=== PATIENT | male | born 1950 | race Caucasian/White ===

== ENCOUNTER 2018-02-16 16:49 | Emergency (ER) | payer BC, MEDICARE ==
[2018-02-16] MEDS ORDERED: PROPARACAINE 0.5% OPHTH DROPS 15 ML BTL BOTH EYES STA (18:14)
[2018-02-16] MEDS ORDERED: PROPARACAINE 0.5% OPHTH DROPS 15 ML BTL ONE (18:15)
--- NOTE | 2018-02-16 18:28 | ED ---
General Adult HPI <Marco Ellis - Last Filed: 02/16/18 19:20> - General Source: patient, RN notes reviewed Mode of arrival: ambulatory Limitations: no limitations <Gage Pruett - Last Filed: 02/16/18 19:54> - General Chief complaint: Eye Problems Stated complaint: lt eye vision loss Time Seen by Provider: 02/16/18 17:58 - History of Present Illness Initial comments: 67-year-old male presents to the emergency department for a chief complaint of vision loss in the left eye. Patient states vision loss is all medial in the left eye. Patient states this started approximately 10 hours ago. Patient denies pain. He states he woke up and noticed his vision was decreased in the left eye. Patient states he has had "flashers" in his eyes for the past 2 years and has seen an eye doctor for this which left eye doctor stated was small tears in the retina. Patient denies a history of carotid artery disease or atrial fibrillation. Patient denies history of stroke. Patient has no other complaints at this time including shortness of breath, chest pain, abdominal pain, nausea or vomiting, headache, or visual changes. (Gage Pruett) - Related Data Home Medications Medication Instructions Recorded Confirmed Aspirin 81 mg PO DAILY 12/03/13 12/03/13 Loratadine [Claritin] 10 mg PO DAILY 12/03/13 12/06/13 Allergies Allergy/AdvReac Type Severity Reaction Status Date / Time No Known Allergies Allergy Verified 02/16/18 17:03 Review of Systems ROS Other: All systems not noted in ROS Statement are negative. <Marco Ellis - Last Filed: 02/16/18 19:20> ROS Other: All systems not noted in ROS Statement are negative. <Gage Pruett - Last Filed: 02/16/18 19:54> ROS Statement: Those systems with pertinent positive or pertinent negative responses have been documented in the HPI. Past Medical History Past Medical History: COPD Additional Past Medical History / Comment(s): RECENT BOUT OF BRONCHITIS History of Any Multi-Drug Resistant Organisms: None Reported Past Surgical History: Hernia Repair Past Anesthesia/Blood Transfusion Reactions: No Reported Reaction Past Psychological History: No Psychological Hx Reported Smoking Status: Never smoker Past Alcohol Use History: None Reported Past Drug Use History: None Reported <Gage Pruett - Last Filed: 02/16/18 19:54> General Exam Limitations: no limitations General appearance: alert, in no apparent distress Head exam: Present: atraumatic, normocephalic, normal inspection Eye exam: Present: normal appearance, PERRL, EOMI. Absent: scleral icterus, conjunctival injection, periorbital swelling Expanded Eyelids: Normal Inspection: Bilateral Pupils: Regular, Round: Bilateral, Reactive: Bilateral Sclera/Conjunctival: Normal Inspection: Bilateral (L eye stained with fluorosceine, no abrasions, negative shante) Anterior chamber: Normal Inspection: Bilateral Visual acuity (R) = 20/: 30 Visual acuity (L) = 20/: 200 (less than 20/200) IOP (R) in mmH IOP (L) in mmH IOP measured with: Tonopen ENT exam: Present: normal exam, mucous membranes moist Neck exam: Present: normal inspection, full ROM, other (negative bruits). Absent: tenderness, meningismus, lymphadenopathy Respiratory exam: Present: normal lung sounds bilaterally. Absent: respiratory distress, wheezes, rales, rhonchi, stridor Cardiovascular Exam: Present: regular rate, normal rhythm, normal heart sounds. Absent: systolic murmur, diastolic murmur, rubs, gallop, clicks Neurological exam: Present: alert, oriented X3, CN II-XII intact, normal gait, other (GCS 15). Absent: motor sensory deficit Psychiatric exam: Present: normal affect, normal mood <Gage Pruett P - Last Filed: 02/16/18 19:54> Vital Signs 02/16/18 17:01 Temperature 99.1 F Pulse Rate 74 Respiratory 18 Rate Blood Pressure 182/99 O2 Sat by Pulse 98 Oximetry Medical Decision Making <Marco Ellis - Last Filed: 02/16/18 19:20> <Gage Pruett - Last Filed: 02/16/18 19:54> - Medical Decision Making Medical decision making; this is a 67-year-old male here with his . The patient reports that when he awakened this morning around 8 AM he difficulty seeing out of his left eye. On examination the patient has lost his medial field of vision from the left eye. Visual acuity in the left eye is 20/200. Pressure of the eyes 14. The patient's not complaining of any pain or headache. His vital signs show blood pressure 182/99. For which she'll receive lisinopril. The patient had CAT scan of the brain which is negative for any acute pathology. A 6 CRP and ESR still pending. Heart no murmur, no carotid bruit appreciated. Patient otherwise alert and oriented without any difficulties. Patient denies any previous significant eye problems no floaters no previous detached retina. I discussed the case with on- call electrical troubleshooter Dr. Case. He will see the patient in the morning in office before office hours. The patient will be advised to stay nothing by mouth after midnight in case he needs to be referred for surgery. Dr. Ellis ( Marco Ellis) 67-year-old male with medial vision loss in the left eye 10 hours. Visual acuity less than 20/200 in the left eye, 20/30 in the right eye. Ocular pressure 10 left eye, right eye 14. Negative Shante sign or corneal abrasion with staining. Negative computed tomography scan of the brain no sign of intracranial hemorrhage or mass effect. Dr Ellis did discuss with Dr Holm. He will see him at 9 am. Patient aware not to ear or drink after midnight. (Gage Pruett) Disposition <Marco Ellis - Last Filed: 02/16/18 19:20> Is patient prescribed a controlled substance at d/c from ED?: No Time of Disposition: 19:53 <Gage Pruett - Last Filed: 02/16/18 19:54> Clinical Impression: Hemianopia of left eye Disposition: HOME SELF-CARE Condition: Good Additional Instructions: Please follow up with Dr. Holm tomorrow in office #[id number] at [facility] at 9 AM. Please go up the stairs and wait there. Do not eat or drink anything after midnight. Return to the emergency department if you have any worsening symptoms. Referrals: Luis Carlos Jerome MD [Primary Care Provider] - 1-2 days Duong Holm MD [STAFF PHYSICIAN] - 1-2 days
--- NOTE | 2018-02-16 18:49 | CT ---
EXAMINATION TYPE: CT brain wo con DATE OF EXAM: 02/16/2018 COMPARISON: None HISTORY: Left eye vision loss CT DLP: 1050.6 mGycm Automated exposure control for dose reduction was used. FINDINGS: There is mild cerebral cortical atrophy. There is no mass effect nor midline shift. There is no sign of intracranial hemorrhage. The calvarium is intact. IMPRESSION: NEGATIVE CT SCAN OF THE BRAIN.
[2018-02-16 20:03] VITALS: BP 172/88; PULSE 68; RESP 16; TEMP 98.7
== END 2018-02-16 20:00 | disposition home or self-care (01) ==
LOC: EC 16:49
DX: H53.47 Heteronymous bilateral field defects (principal); Z79.82 Long term (current) use of aspirin; Z79.899 Other long term (current) drug therapy
CPT/HCPCS: 36415; 70450; 85652; 86140; 99284

== ENCOUNTER → 2019-12-30 | Outpatient (CLI) | payer MEDICARE ==
[2019-12-30 15:26] LABS: HCT 43.2 % (39.0-53.0); HGB 14.9 gm/dL (13.0-17.5); MCH 32.6 pg (25.0-35.0); MCHC 34.5 g/dL (31.0-37.0); MCV 94.4 fL (80.0-100.0); Mean Platelet Volume 7.4; Platelet Count 241 k/uL (150-450); RBC 4.58 m/uL (4.30-5.90); RDW 12.6 % (11.5-15.5)
[2019-12-30 15:35] LABS: Appearance,Urine Clear (Clear); Bilirubin,Urine Negative (Negative); Blood,Urine Trace (Negative); Color,Urine Yellow; Glucose,Urine (UA) Negative (Negative); Ketones,Urine Negative (Negative); Leukocyte Esterase,Urine Negative (Negative); Mucus,Urine Rare /hpf; Nitrite,Urine Negative (Negative); Protein,Urine Negative (Negative); RBC,Urine 9 /hpf (0-5); Specific Gravity,Urine 1.012 (1.001-1.035); Urobilinogen,Urine <2.0 mg/dL (<2.0); WBC,Urine 1 /hpf (0-5)
[2019-12-30 15:39] LABS: Partial Thromboplastin Time 24.5 sec (22.0-30.0); Prothrombin Time 10.2 sec (9.0-12.0)
[2019-12-30 15:41] LABS: ALT 42 U/L (4-49); AST 43 U/L (17-59); African American GFR (CKD) >90 (>60 ml/min/1.73 sqM); Albumin 4.3 g/dL (3.5-5.0); Alkaline Phosphatase 72 U/L (38-126); Anion Gap 10 mmol/L; Blood Urea Nitrogen 10 mg/dL (9-20); Calcium 9.2 mg/dL (8.4-10.2); Carbon Dioxide 26 mmol/L (22-30); Chloride 93 mmol/L (98-107); Glucose 106 mg/dL (74-99); Non-African American GFR(CKD) >90 (>60 ml/min/1.73 sqM); Potassium 4.7 mmol/L (3.5-5.1); Sodium 129 mmol/L (137-145); Total Bilirubin 0.9 mg/dL (0.2-1.3)
== END | disposition home or self-care (01) ==
LOC: LABPAT 14:27
PROVIDERS: ATTEND Orthopaedic Surgery
DX: Z01.818 Encounter for other preprocedural examination (principal); Z01.812 Encounter for preprocedural laboratory examination; Z79.01 Long term (current) use of anticoagulants
CPT/HCPCS: 36415; 80053; 81001; 85027; 85610; 85730; 87070; 93005

== ENCOUNTER 2020-01-14 07:45 | Day surgery (SDC) | payer MEDICARE ==
[2020-01-01 13:56] VITALS: BMI 26.5
[~2020-01-14 07:45] MED LIST: ACETAMINOPHEN TAB 500 MG TAB PO ONE; DEXAMETHASONE SOD PHOSPHATE 10 MG/ML 1 ML VIAL IV ONE; GABAPENTIN 300 MG CAP PO ONE; HYDROmorphone 0.5 MG/0.5 ML SYRINGE IVP PRN; MELOXICAM 7.5 MG TAB PO ONE; MIDAZOLAM 2 MG/2 ML VIAL IV PRN; ONDANSETRON 4 MG/2 ML VIAL IVP ONE; TRANEXAMIC ACID 1,000 MG in SODIUM CHLORIDE 0.9% 100 ML IVPB ONE
[2020-01-14] MEDS ORDERED: ACETAMINOPHEN TAB 500 MG TAB ONE (08:02)
[2020-01-14] MEDS ORDERED: ONDANSETRON 4 MG/2 ML VIAL ONE (08:03)
[2020-01-14] MEDS: LACTATED RINGERS 1,000 ML IV SCH (08:35)
[2020-01-14] MEDS ORDERED: MIDAZOLAM 2 MG/2 ML VIAL IVP ONE (08:39)
--- NOTE | 2020-01-14 09:03 | P.ANPRN ---
Procedure Note - Anesthesia - Nerve Block Performed Right Adductor Canal Infusion Time Out Performed: Yes Date of Procedure: 01/14/20 Procedure Start Time: 07:40 Procedure Stop Time: 07:50 Location of Patient: PreOp Indication: Acute Post-Operative Pain, Requested by Surgeon Specifically requested for management of pain by : Eitan Max Sedation Type: Sedate with meaningful contact maintained Preparation: Sterile Prep, Sterile Dressing Position: Supine Catheter: Indwelling Needle Types: Pajunk Needle Gauge: 18 Ultrasound used to visualize needle placement: Yes Ultrasound used to observe medication spread: Yes Injectate: 0.5% Ropivacaine (see comment for volume) (20 ml) Blood Aspirated: No Pain Paresthesia on Injection Noted: No Resistance on Injection: Normal Image Stored and Saved: Yes Events: Uneventful and Well Tolerated
[2020-01-14] MEDS ORDERED: GLYCOPYRROLATE 0.2 MG/ML 2 ML VIAL ONE (09:16)
[2020-01-14] MEDS ORDERED: SODIUM CHLORIDE 0.9% 100 ML BAG ONE (09:16)
[2020-01-14] MEDS ORDERED: TRANEXAMIC ACID 1,000 MG/10 ML VIAL ONE (09:16)
[2020-01-14] MEDS ORDERED: MIDAZOLAM 2 MG/2 ML VIAL ONE (09:16)
[2020-01-14] MEDS ORDERED: PROPOFOL 10 MG/ML 20 ML VIAL IV ONE (09:16)
[2020-01-14] MEDS ORDERED: ceFAZolin 3,000 MG in SODIUM CHLORIDE 0.9% IRRIGATIO 3,000 ML IRRIGATION ONE (09:19)
[2020-01-14] MEDS ORDERED: hydrOXYzine PAMOATE 25 MG CAP PO PRN (09:25)
[2020-01-14] MEDS ORDERED: BISACODYL 10 MG SUPP RECTAL PRN (09:25)
[2020-01-14] MEDS ORDERED: NA PHOS,M-B/NA PHOS,DI-BA 133 ML ENEMA RECTAL PRN (09:25)
[2020-01-14] MEDS ORDERED: HYDROcodone/APAP 5-325MG 1 EACH TAB PO PRN (09:25)
[2020-01-14] MEDS ORDERED: HYDROmorphone 0.5 MG/0.5 ML SYRINGE IVP PRN ×3 (09:25)
[2020-01-14] MEDS ORDERED: ONDANSETRON 4 MG/2 ML VIAL IVP PRN (09:25)
[2020-01-14] MEDS ORDERED: DIAZEPAM 5 MG TAB PO PRN (09:25)
[2020-01-14] MEDS ORDERED: NALOXONE 0.4 MG/ML 1 ML VIAL IV PRN (09:25)
[2020-01-14] MEDS: ROPIVACAINE 246.25 MG, EPINEPHrine 0.5 MG, KETOROLAC 30 MG, cloNIDine HCL/PF 80 MCG, WA... MISCELLANE ONE ×10 (09:47→10:25)
[2020-01-14] MEDS ORDERED: LACTATED RINGERS 1,000 ML IV ONE (10:06)
--- NOTE | 2020-01-14 10:56 | P.OP ---
Date of Procedure: 01/14/20 Preoperative Diagnosis: Severe osteoarthritis right knee Postoperative Diagnosis: Severe osteoarthritis right knee Procedure(s) Performed: Right total knee arthroplasty Implants: Hogan [employer] Nephew Journey II CR Oxinium cruciate retaining femoral component size 8, right Hogan [employer] Nephew Journey right nonporous tibial baseplate size 8 Hogan [employer] Nephew Journey II, XLPE Deep Dished articular insert, size 9 mm, Size 7- 8 right Hogan [employer]hew Journey BCS resurfacing oval patellar component, 35 mm All components were cemented using Palacos R bone cement.. The articulation is Oxinium on polyethylene. Anesthesia: spinal Surgeon: Eitan Max Painting Manager #1: Ping Templeton Estimated Blood Loss (ml): 50 Pathology: other (Bone and cartilage) Condition: stable Disposition: PACU Indications for Procedure: After failure of conservative treatment we discussed the surgical and nonsurgical treatment options at length. Patient wishes to proceed with a total knee arthroplasty. Complications specific to this procedure were discussed at length, including but not limited to infection, bleeding, stiffness, and nerve injury. Covid-19 was also discussed at length with the patient, and they are aware of the current policies and procedures. The patient was given the option of delaying surgery, but they elect to proceed knowing these risks. Patient is aware of all these complications and informed consent was obtained Operative Findings: The operative findings are consistent with severe osteoarthritis of the right knee Description of Procedure: Patient was seen in the preoperative area consent was reviewed and operative site was marked with a skin marker. An adductor canal pain catheter was placed by anesthesia in the preoperative area. Patient was then brought to the operating room and given preoperative antibiotics intravenously. A spinal anesthetic was administered by the anesthesia department. A tourniquet was placed on the upper thigh and the lower extremity was prepped and draped in usual sterile fashion. A gram of transexamic acid was given. A universal timeout was then performed which confirmed the patient's name, surgical site, ALLERGIES, and consent. The lower extremity was then exsanguinated and tourniquet was inflated to 250 mmHg. A standard and anterior midline approach to the knee was performed. The skin and subcutaneous tissue was dissected down to the patellar tendon. A medial parapatellar arthrotomy was then performed. The knee was then extended, the patellar was everted, and the knee was again flexed. The patellar fat pad was removed in order to enhance exposure. Anterior horns of both menisci were excised, and a release was performed to the posterior medial aspect of the knee. On gross visual inspection, there was complete loss of articular cartilage in the medial and patellofemoral joint spaces. There was also significant cartilage damage in the lateral compartment. There were multiple periarticular osteophytes which were then removed with a Ronguer. The femoral canal was then opened with the 9.5 mm intramedullary drill. The 8 mm intramedullary james was then inserted into the femoral canal. The distal femoral cutting guide was then placed and set for 5 of valgus. The distal femoral cutting block was then pinned in place. The intramedullary james was then removed, and the distal femur was then cut. The cutting block was then removed and the cut was checked for symmetry. Next, the sizing guide was then placed and set for 3 external rotation based off of the epicondylar axis and Whitesides line. Pins were then placed and the drill holes, and the femur was sized with the sizing stylus. The pins were then removed, and the sizing guide was then removed. The spikes of the femoral block was then placed into the predrilled holes, and malleted into place. Two 45 mm pins were then placed into the fixation holes on the cutting block. An gerardo wing was then used to ensure there would be no notching with the anterior cut. The anterior condyles were cut without notching. The anterior cord cut was then performed, followed by the posterior cut, posterior chamfer cut, and the anterior chamfer cut. The collateral ligaments were protected during the entire process. The cutting block was then removed, and the femoral canal was plugged with autologous bone. Attention was then directed to the tibia. The remaining ACL was removed with a Ronguer, and the tibia was then gently subluxed forward with a large bent knee retractor. Any remaining menisci was excised. The posterior lateral corner was cauterized in order to cauterize the lateral geniculate artery. The extra medullary tibial cutting guide was then placed, set for the appropriate rotation, slope, and depth of resection. The proximal tibia cutting guide was then pinned in place. Proximal tibia was then cut and sized. Next trials were then placed with the appropriate-sized insert. The knee was able to fully extend and flex to 130 and was stable throughout all range of motion. The knee was then extended, patella everted. Patella was then measured, and then using an osteotomy guide, the patella was cut at the appropriate level. The patella was then measured and drilled and the patella trial was then placed. The knee was then taken through range of motion with the patella trial and the patella tracked normally. The knee was then extended patella trial was then removed and the patella was everted. Knee was then flexed and lug holes were drilled through the femoral trial and the femoral trial was then removed. The tibial was then exposed, and the tibial broach guide was then pinned in place after it was set for the appropriate rotation to allow for the most coverage without overhang. The tibia was then reamed and broached. The cut surfaces of bone were then irrigated with pulsatile lavage. The posterior structures were injected with the ropivacaine solution. The knee was also irrigated with Irrisept solution. The components were then opened, the cement was mixed, and the components were then cemented in place. The cement was allowed to harden with the knee in full extension. While the cement was hardening, the remaining soft tissues were then injected with a ropivacaine solution, which consisted of 246.25 mg of ropivacaine, 0.5 mg of epinephrine, 30 mg of Toradol, 80 g of clonidine, and 48.45 mL of sterile water, for a total of 100 mL of fluid injected. After the cemented hardened. The tourniquet was released, and hemostasis was obtained. A second gram of transexamic acid was given. The knee was again irrigated. The knee was again taken through range of motion and found to be stable throughout all range of motion of 0-130, and the patella tracked normally. The fascia was then closed with #2 strata fix suture. The subcutaneous tissue was closed with 3-0 Vicryl and 3-0 strata fix. Dermabond glue was used for the skin and placed with the knee in flexion. The patient was placed in a sterile silver dressing. Patient was then transferred to recovery room in stable condition. The producer assistant ANGELINE Nettles was required due the complexity surgery and the need for a skilled surgical physician assistant. She assisted in positioning, draping, retraction, and closure of the wound.
[2020-01-14] MEDS ORDERED: ROPIVACAINE 0.2%-NS ON-Q PUMP 1,090 MG, EMPTY PAIN BALL 1 EACH MISCELLANE PRN (11:15)
--- NOTE | 2020-01-14 12:01 | XR ---
EXAMINATION TYPE: XR knee limited RT DATE OF EXAM: 01/14/2020 COMPARISON: NONE HISTORY: 69-year-old male evaluation for postoperative abnormality and alignment TECHNIQUE: 2 views FINDINGS: Images show placement of right total knee arthroplasty. Both distal femoral and proximal ti bial components. Prosthesis appear well seated without periprosthetic fracture. Alignment grossly jannette tomic. Anterior soft tissue swelling with scattered soft tissue air as well as intra-articular air an d joint fluid compatible with recent operation. IMPRESSION: Uncomplicated postoperative appearance right total knee arthroplasty.
[2020-01-14] MEDS: SODIUM CHLORIDE 0.9% 1,000 ML IV SCH (17:03)
[2020-01-14] MEDS: ASPIRIN 325 MG TAB PO SCH (20:46)
[2020-01-14] MEDS ORDERED: SENNOSIDES-DOCUSATE SODIUM 1 EACH TAB PO SCH (21:00)
[2020-01-14] MEDS ORDERED: LORATADINE 10 MG TAB PO PRN (21:22)
--- NOTE | 2020-01-14 21:23 | P.CONS ---
History of Present Illness - Reason for Consult Consult date: 01/14/20 Medical management Requesting physician: Eitan Max - Chief Complaint Right knee pain - History of Present Illness Consultation: This is a pleasant 69-year-old patient of Dr. Jerome. Patient been having progressive pain in the right knee. Conservative management failed. Had been taking pain medication. Pain was worse with activity and better with rest. Pain is localized to his right knee. The pain was sharp in nature. Patient today underwent right total knee arthroplasty. Postprocedure comfortable. No nausea vomiting. Has been out of bed. Did tolerate a light supper. Review of systems: GEN.: None EYES: None HEENT: None NECK: None RESPIRATORY: None CARDIOVASCULAR: None GASTROINTESTINAL: None GENITOURINARY: None MUSCULOSKELETAL: [Pain in any joints LYMPHATICS: None HEMATOLOGICAL: None PSYCHIATRY: None NEUROLOGICAL: None Past medical history to include: Essential hypertension, , osteoarthritis Social history: Does not smoke or drink Court. . Retired from [employer]. Physical examination: VITAL SIGNS: 97.8, 76, 18, 125/76, 95% room air GENERAL: BMI 26.6, sitting on bed, comfortable. EYES: Pupils equal. Conjunctiva normal. HEENT: External appearance of nose and ears normal, oral cavity grossly normal. NECK: JVD not raised; masses not palpable. HEART: First and second heart sounds are normal; no edema. LUNGS: Respiratory rate normal; clear to auscultation. ABDOMEN: Soft, nontender, liver spleen not palpable, no masses palpable. PSYCH: Alert and oriented x3; mood and affect normal MUSCULOSKELETAL: Dressing over the right knee. NEUROLOGICAL: Cranial nerves grossly intact; no facial asymmetry, power and sensation grossly intact. LYMPHATICS: No lymph nodes palpable in the axilla and neck INVESTIGATIONS, reviewed in the clinical context: From 12/30/2019 White count 16 hemoglobin 14.9 potassium 4.7 creatinine 0.53 Assessment: -Right total knee arthroplasty -Primary osteoarthritis -Recent leukocytosis likely reactive no evidence of infection -Essential hypertension Plan: Patient does feel for DVT prophylaxis. Postprocedure doing well. Home medications to be resumed. Care was discussed with the patient. Questions were answered. Thank you Dr. Max Past Medical History Past Medical History: Hypertension Additional Past Medical History / Comment(s): RECENT BOUT OF BRONCHITIS History of Any Multi-Drug Resistant Organisms: None Reported Past Surgical History: Hernia Repair Additional Past Surgical History / Comment(s): LEFT CATARACT SURGERY WITH IMPLANTS, HERNIA X2, total right knee Past Anesthesia/Blood Transfusion Reactions: No Reported Reaction Past Psychological History: No Psychological Hx Reported Smoking Status: Never smoker Past Alcohol Use History: None Reported Past Drug Use History: None Reported - Past Family History Mother Family Medical History: No Reported History Father Family Medical History: Cancer Additional Family Medical History / Comment(s): LUNG AND COLON CANCER Medications and Allergies Home Medications Medication Instructions Recorded Confirmed Type Loratadine [Claritin] 10 mg PO DAILY PRN 12/03/13 01/01/20 History Lisinopril [Zestril] 5 mg PO DAILY 01/01/20 01/01/20 History Allergies Allergy/AdvReac Type Severity Reaction Status Date / Time No Known Allergies Allergy Verified 01/01/20 12:07 Physical Exam Vitals: Vital Signs Temp Pulse Resp BP Pulse Ox 01/14/20 19:49 76 18 01/14/20 19:13 97.8 F 76 18 125/76 95 01/14/20 17:06 16 01/14/20 15:15 77 16 101/68 96 01/14/20 14:00 16 99/67 96 01/14/20 13:30 60 18 114/65 99 01/14/20 13:12 59 L 17 127/75 95 01/14/20 12:58 60 17 116/75 97 01/14/20 12:44 63 17 109/71 97 01/14/20 12:30 61 18 103/64 96 01/14/20 12:00 59 L 18 96/64 95 01/14/20 11:45 58 L 187 H 110/74 93 L 01/14/20 11:30 70 18 105/70 96 01/14/20 11:15 81 18 105/70 94 L 01/14/20 11:13 97.1 F L 71 14 99/61 95 01/14/20 08:48 66 18 133/88 98 Intake and Output 01/14/20 01/14/20 01/14/20 06:59 14:59 22:59 Intake Total 1351 Output Total 50 200 Balance 1301 -200 Intake: IV 1351 Output: Urine 200 Estimated Blood Loss 50 Other: Voiding Method Toilet Urinal # Voids 1 Weight 84.1 kg 84.1 kg
[2020-01-15] MEDS: SODIUM CHLORIDE 0.9% 1,000 ML IV SCH (00:29)
[2020-01-15 01:33] VITALS: PULSE 74
[2020-01-15] MEDS: HYDROcodone/APAP 5-325MG 1 EACH TAB PO PRN ×2 (05:05→11:48)
[2020-01-15] MEDS: LACTATED RINGERS 1,000 ML IV SCH (05:07)
[2020-01-15 06:53] VITALS: BP 125/77; RESP 16; TEMP 98.4
[2020-01-15] MEDS: ASPIRIN 325 MG TAB PO SCH (06:54)
--- NOTE | 2020-01-15 07:17 | P.PN ---
Progress Note - Text Progress Note Date: 01/15/20 Patient was seen and evaluated and bedside. Postoperative day one status post total knee arthroplasty . Patient is rating his pain level 3-4 out of 10 at rest. Patient rating his pain levels 5-6with activity. Patient denied any side effects with catheter medications. Able to participate active physical therapy without any problem. Physical exam: Vitals stable, afebrile. Catheter intact with dressing. No redness/swelling. No leaking fluid around the catheter. No tenderness on palpation over the catheter placement area. Plan: Continue current catheter flow rate.
[2020-01-15 08:44] LABS: HCT 34.5 % (39.0-53.0); MCH 32.7 pg (25.0-35.0); MCHC 34.8 g/dL (31.0-37.0); MCV 93.9 fL (80.0-100.0); Mean Platelet Volume 7.6; Platelet Count 196 k/uL (150-450); RBC 3.67 m/uL (4.30-5.90); RDW 12.9 % (11.5-15.5); WBC 22.5 k/uL (3.8-10.6)
--- NOTE | 2020-01-15 08:44 | P.DS ---
Providers Expected date of discharge: 01/15/20 Attending physician: Eitan Max Consults: 01/14/20 09:25 Consult Physician Routine Consulting Provider: Harish Dasilva Consult Reason/Comments: \ Do you want consulting provider notified?: Yes Primary care physician: Luis Carlos Jerome - Discharge Diagnosis(es) (1) Osteoarthritis of right knee Current Visit: Yes Status: Acute (2) Status post total right knee replacement Current Visit: Yes Status: Acute Hospital Course: This is a 69-year-old male with known history of degenerative arthritis of the right knee. The patient presents for evaluation. After discussion and consideration patient elects to proceed with total knee arthroplasty. The patient is seen preoperatively by Dr. Max and medically cleared for surgery by their primary care physician. Patient is admitted to [facility] on 01/14/2020 for total knee arthroplasty. The procedures performed without complication or sequelae. The patient is doing well postoperatively. Labs and vital signs are stable on day of discharge. On day of discharge patient's knee incision is healing well. There is minimal erythema. There is no drainage noted at this time. There is minimal soft tissue swelling to the knee. Patient has full foot and ankle motion without difficulty or pain. Calf is soft and nontender to palpation. Neurovascular status to the right lower extremity is intact. Patient is discharged home in good condition. Opioid start talking form is reviewed and signed at patient bedside. Please see med rec for accurate list of home medications. Plan - Discharge Summary Discharge Rx Participant: Yes New Discharge Prescriptions: New Aspirin 325 mg PO BID #60 tab HYDROcodone/APAP 5-325MG [[place] 5-325] 1 - 2 tab PO Q6HR PRN #48 tab PRN Reason: Pain Sennosides [Senokot] 2 tab PO DAILY PRN #60 tablet PRN Reason: Constipation No Action Loratadine [Claritin] 10 mg PO DAILY PRN PRN Reason: Allergy Symptoms Lisinopril [Zestril] 5 mg PO DAILY Discharge Medication List Loratadine [Claritin] 10 mg PO DAILY PRN 12/03/13 [History] Lisinopril [Zestril] 5 mg PO DAILY 01/01/20 [History] Aspirin 325 mg PO BID #60 tab 01/15/20 [Rx] HYDROcodone/APAP 5-325MG [[place] 5-325] 1 - 2 tab PO Q6HR PRN #48 tab 01/15/20 [Rx] Sennosides [Senokot] 2 tab PO DAILY PRN #60 tablet 01/15/20 [Rx] Follow up Appointment(s)/Referral(s): Eitan Max DO [Doctor of Osteopathic Medicine] - 2 Weeks Ambulatory/Diagnostic Orders: Continuous Passive Motion (CPM) Machine [DME.AMB1] Time Frame: 3 Weeks, Location: None Selected Activity/Diet/Wound Care/Special Instructions: Weightbearing as tolerated with a walker. CPM 5-6h daily. Leave dressing intact. May be removed by home care nurse or by patient in 10 days. May shower with dressing on. Recommend use of compression stockings daily until follow up to help prevent swelling and blood clots. May remove at night before sleeping. Please follow up with [facility] and call with any questions or concerns, . Discharge Disposition: HOME WITH HOME HEALTH SERVICES
[2020-01-15] MEDS ORDERED: MELOXICAM 7.5 MG TAB PO SCH (09:00)
[2020-01-15] MEDS ORDERED: LISINOPRIL 5 MG TAB PO SCH (09:00)
[2020-01-15 10:26] LABS: Basophils # (M) 0.45 k/uL (0-0.2); Neutrophils # (M) 5.85 k/uL (1.3-7.7); Neutrophils % (M) 26 %; Nucleated Red Blood Cells 0 /100 WBC (0-0); Total Cells Counted 100
--- NOTE | 2020-01-15 23:35 | P.PN ---
Progress Note - Text Progress Note Date: 01/15/20 - Chief Complaint Right knee pain Consultation: This is a pleasant 69-year-old patient of Dr. Jerome. Patient been having progressive pain in the right knee. Conservative management failed. Had been taking pain medication. Pain was worse with activity and better with rest. Pain is localized to his right knee. The pain was sharp in nature. Patient today underwent right total knee arthroplasty. Postprocedure comfortable. No nausea vomiting. Has been out of bed. Did tolerate a light supper. Today-feeling well. Pain control. No new issues. Did tolerate his breakfast. Up to the bathroom. Care was discussed with the patient and . Review of systems: Was done for constitutional, cardiovascular, GI, pulmonary. Musculoskeletal relevant finding as above Current medications reviewed in today's electronic records Physical examination: VITAL SIGNS: 98.4, Monday 4, 16, 125 was 37, 97% room air GENERAL: Sitting up, comfortable EYES: Pupils equal. Conjunctiva normal. HEENT: External appearance of nose and ears normal, oral cavity grossly normal. NECK: JVD not raised; masses not palpable. HEART: First and second heart sounds are normal; no edema. LUNGS: Respiratory rate normal; clear to auscultation. ABDOMEN: Soft, nontender, liver spleen not palpable, no masses palpable. PSYCH: Alert and oriented x3; mood and affect normal MUSCULOSKELETAL: Dressing over the right knee. INVESTIGATIONS, reviewed in the clinical context: White count 22.5 hemoglobin 12 From 12/30/2019 White count 16 hemoglobin 14.9 potassium 4.7 creatinine 0.53 Assessment: -Right total knee arthroplasty -Primary osteoarthritis -Recent leukocytosis likely reactive no evidence of infection -Essential hypertension Plan: Care was discussed the patient and . Patient should have a repeat CBC done as an outpatient. This can be followed with the family doctor. I'm sending a copy of my note to Dr. Jerome. Thank you Dr. Max Follow-up testing: CBC with differential to be followed up with Dr. Jerome as outpatient.
== END 2020-01-15 12:56 | disposition home health service (06) ==
LOC: OR 07:45 → 4SSUR 11:11 → OR 01-15 12:56
PROVIDERS: ATTEND Orthopaedic Surgery
DX: M17.11 Unilateral primary osteoarthritis, right knee (principal); I10 Essential (primary) hypertension; G25.81 Restless legs syndrome; C91.10 Chronic lymphocytic leukemia of B-cell type not having achieved remission; Z79.899 Other long term (current) drug therapy; Z98.890 Other specified postprocedural states; Z82.49 Family history of ischemic heart disease and other diseases of the circulatory system; Z80.0 Family history of malignant neoplasm of digestive organs; Z80.1 Family history of malignant neoplasm of trachea, bronchus and lung
CPT/HCPCS: 97110; 97161; 64448; 76942; 85025; 88300; 73560; 27447; C1713; C1776; J2250; J0171; J1100; J0690 ×3; J2405 ×2; J1885; J2795 ×2; J2704; J0735

== ENCOUNTER → 2021-06-16 | Outpatient (CLI) | payer MEDICARE ==
[2021-06-16 15:04] LABS: HCT 44.3 % (39.6-50.0); MCHC 33.9 g/dL (32.0-37.0); MCV 91.5 fL (80.0-97.0); Mean Platelet Volume 9.6 fL (9.5-12.2); Platelet Count 306 X 10*3/uL (140-440); RBC 4.84 X 10*6/uL (4.40-5.60); WBC 15.11 X 10*3/uL (4.50-10.00)
[2021-06-16 16:10] LABS: Basophils # (M) 0.15 X 10*3/uL (0.00-0.10); Eosinophils # (M) 0.15 X 10*3/uL (0.04-0.35); Lymphocytes # (M) 10.73 X 10*3/uL (0.90-5.00); Monocytes # (M) 1.06 X 10*3/uL (0.20-1.00); Neutrophils # (M) 3.02 X 10*3/uL (2.00-8.90); Neutrophils % (M) 20 %; Smudge Cells PRESENT
[2021-06-17 10:15] LABS: Protein, Total 6.6 g/dL (6.2-8.2)
[2021-06-17 14:09] LABS: Albumin 4.08 g/dL (3.80-4.90); Gamma Globulin 0.95 g/dL (0.70-1.50)
== END | disposition home or self-care (01) ==
LOC: LABWHC1 09:41
PROVIDERS: ATTEND Orthopaedic Surgery Orthopaedic Surgery of the Spine
DX: M54.16 Radiculopathy, lumbar region (principal); M41.86 Other forms of scoliosis, lumbar region; M47.816 Spondylosis without myelopathy or radiculopathy, lumbar region; M51.37 Other intervertebral disc degeneration, lumbosacral region; M16.11 Unilateral primary osteoarthritis, right hip; M16.12 Unilateral primary osteoarthritis, left hip
CPT/HCPCS: 36415; 84165; 85025

== ENCOUNTER → 2022-11-17 | Outpatient (CLI) | payer MEDICARE ==
--- NOTE | 2022-11-17 12:39 | P.SLEEP ---
History of Present Illness DATE: 11/17/2022 CONSULTATION/NEW PATIENT EVALUATION HISTORY OF PRESENT ILLNESS/SLEEP-WAKE EVALUATION: 72-year-old gentleman had been evaluated in the sleep center for possible obstructive sleep apnea hypopnea syndrome. SLEEP SCHEDULE: Usually sleep schedule from 10 PM to 7 AM 7 days a week. FALLING ASLEEP: No problems with falling asleep. DURING SLEEP: Patient snores and wakes up from sleep 5 times with 3 episodes of nocturia, positive history of awakenings with dry mouth. Positive history of restless legs and significant amount of leg movements at night. No history of hypnogogical hallucinations, sleep paralysis, or cataplexy. DURING THE DAY/WAKE STATE: In the morning patient wake up tired, falling asleep during the day. Pyote sleepiness scale is significantly increased to 15.[]. PAST MEDICAL HISTORY: Hypertension, arthritis, restriction of nasal breathing, CLL, back problems. PAST SURGICAL HISTORY: Hernia repair, surgical treatment for latent detachment, right knee replacement. MEDICATIONS: Losartan 25 mg once a day, fluticasone spray. SOCIAL HISTORY: Negative for smoking quit using alcohol. FAMILY HISTORY: Colon cancer by his father. REVIEW OF SYSTEMS: Snoring, multiple awakenings from sleep, sleepiness during the day. No fevers. No double vision. No recent chest pain. No shortness of breath. No abdominal pain. No bleeding episodes. No blood in urine. No seizure episodes. PHYSICAL EXAMINATION: GENERAL: A pleasant patient without any distress. VITAL SIGNS: BP 146/92 , HR 64 , RR 12 , weight 187.0 pounds, height 5 foot 8 inches, body mass index 28.5 . HEENT: PERRLA, EOMI. Evaluation of oropharynx showed tongue protrudes midline, low position of soft palate Mallampati 3. NECK: Supple. No JVD. Thyroid is not palpable. 16 inches in circumference. LUNGS: Clear to percussion and to auscultation. Good air exchange. No wheezing or rhonchi. HEART: S1, S2 regular. No murmurs, gallops or rubs. ABDOMEN: Soft and nontender. Bowel sounds are present. No organomegaly appreciated. EXTREMITIES: No clubbing or cyanosis. EMBROIDERY WORKER: Awake, alert, and oriented x3. Cranial nerves 2 to 7 intact. There is no fasciculation or atrophy noted. No focal deficits observed. ASSESSMENT: 1. Snoring, multiple awakenings from sleep, low position of soft palate Mallampati 3, excessive daytime sleepiness Pyote Sleepiness Scale significantly increased to 15. Obstructive sleep apnea hypopnea syndrome. 2. Hypertension. 3. Significant amount of movements during the sleep possibly periodic limb movements. 4. Restless leg symptoms. 5 status post right knee replacement. 6 . 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 7. History of arthritis. 8. History of chronic lymphocytic leukemia. 9 . Status post left eye cataract surgery. 10. Low back problems. PLAN: 1. Polysomnography for evaluation of patient's breathing during sleep. 2. CPAP/BiPAP titration if sleep study confirms obstructive sleep apnea- hypopnea syndrome. 3. Preferable position during sleep on the side. 4. No driving if patient feels any sleepiness. Patient is aware of civil and criminal liability for unsafe driving. 5. Sleep hygiene with regular sleep time for at least 7.5-8 hours. 6. Watching weight. Thank you very much for referring this patient for consultation. Sincerely, Oliver De La Cruz MD, PhD, FAASM. Diplomat of [place] [employer], Sleep Medicine Board by [place] [employer] [employer] Heel [facility] of [facility] Past Medical History Past Medical History: Hypertension Additional Past Medical History / Comment(s): RECENT BOUT OF BRONCHITIS History of Any Multi-Drug Resistant Organisms: None Reported Past Surgical History: Hernia Repair Additional Past Surgical History / Comment(s): LEFT CATARACT SURGERY WITH IMPLANTS, HERNIA X2, total right knee Past Anesthesia/Blood Transfusion Reactions: No Reported Reaction Past Psychological History: No Psychological Hx Reported Past Alcohol Use History: None Reported Past Drug Use History: None Reported Medications and Allergies Home Medications Medication Instructions Recorded Confirmed Type Loratadine [Claritin] 10 mg PO DAILY PRN 12/03/13 01/01/20 History lisinopriL [Zestril] 5 mg PO DAILY 01/01/20 01/01/20 History Aspirin 325 mg PO BID #60 tab 01/15/20 Rx HYDROcodone/APAP 5-325MG [Banner 1 - 2 tab PO Q6HR PRN #48 tab 01/15/20 Rx 5-325] Sennosides [Senokot] 2 tab PO DAILY PRN #60 tablet 01/15/20 Rx Allergies Allergy/AdvReac Type Severity Reaction Status Date / Time No Known Allergies Allergy Verified 01/01/20 12:07 Sleep Note - Sleep Note Sleep Note: Temperature: Pulse Rate: Respiratory Rate: Blood Pressure: SpO2: Height: Weight: BMI: Neck Circumference:
== END ==
LOC: SLEEP 10:48
PROVIDERS: ATTEND Internal Medicine
DX: G47.33 Obstructive sleep apnea (adult) (pediatric) (principal); I10 Essential (primary) hypertension; G47.61 Periodic limb movement disorder; G25.81 Restless legs syndrome; Z96.651 Presence of right artificial knee joint; M19.90 Unspecified osteoarthritis, unspecified site; M54.9 Dorsalgia, unspecified; Z98.890 Other specified postprocedural states; Z99.89 Dependence on other enabling machines and devices
CPT/HCPCS: 99211

== ENCOUNTER → 2022-11-24 | Outpatient (CLI) | payer MEDICARE ==
--- NOTE | 2022-11-24 14:40 | XR ---
EXAMINATION TYPE: XR chest 2V DATE OF EXAM: 11/24/2022 COMPARISON: None HISTORY: 72-year-old male R07.9, chest pressure today TECHNIQUE: Frontal and lateral views FINDINGS: Heart limits of normal in size. Hyperinflation. Some strandy atelectasis left base. Tortuosity/ectasi a of the thoracic aorta. There is a 7.0 cm mass at the right upper lobe. No consolidation or pleural effusion otherwise seen. IMPRESSION: 1. COPD with a 7.0 cm right upper lobe mass. Underlying lung cancer should be excluded. Further appro priate evaluation and management advised. 2. Tortuous/ectatic thoracic aorta. 3. Some strandy basilar atelectasis.
== END | disposition home or self-care (01) ==
LOC: RADXRMAIN 13:41
PROVIDERS: ATTEND Physician Assistant
DX: J44.9 Chronic obstructive pulmonary disease, unspecified (principal); J98.11 Atelectasis
CPT/HCPCS: 71046

== ENCOUNTER → 2022-11-24 | Outpatient (CLI) | payer MEDICARE ==
[2022-11-24 14:33] LABS: Creatine Kinase MB 3.9 ng/mL (0.0-2.4); Troponin I <0.012 ng/mL (0.000-0.034)
[2022-11-24 20:18] LABS: ALT 38 U/L (10-49); AST 31 U/L (14-35); African American GFR (CKD) 108.6 (60.0-200.0); Albumin 4.8 g/dL (3.8-4.9); Albumin/Globulin Ratio 2.24 (1.60-3.17); Alkaline Phosphatase 82 U/L (41-126); BUN/Creat Ratio 12.91 Ratio (12.00-20.00); Blood Urea Nitrogen 9.2 mg/dL (9.0-27.0); Calcium 9.6 mg/dL (8.7-10.3); Carbon Dioxide 27.8 mmol/L (20.0-27.5); Chloride 94 mmol/L (96-109); Chol/HDL Ratio 3.68 Ratio; Creatine Kinase 287 U/L (35-257); Globulin 2.1 g/dL (1.6-3.3); Glucose 95 mg/dL (70-110); Non-African American GFR(CKD) 93.7 (60.0-200.0); Potassium 4.4 mmol/L (3.5-5.5); Sodium 131 mmol/L (135-145); Total Protein 6.9 g/dL (6.2-8.2); VLDL Calculation 15.68 mg/dL (5.00-40.00)
[2022-11-24 21:59] LABS: HCT 46.7 % (39.6-50.0); HGB 15.5 g/dL (13.0-17.0); MCH 30.8 pg (27.0-32.0); MCHC 33.2 g/dL (32.0-37.0); MCV 92.8 fL (80.0-97.0); Mean Platelet Volume 10.1 fL (9.5-12.2); NRBC Per 100 WBC 0 /100 WBCS (0.0-0.0); Platelet Count 261 X 10*3/uL (140-440); RBC 5.03 X 10*6/uL (4.40-5.60); RDW 13.5 % (11.5-14.5); WBC 22.59 X 10*3/uL (4.50-10.00)
[2022-11-25 01:09] LABS: Basophils # (M) 0 X 10*3/uL (0.00-0.10); Eosinophils # (M) 0 X 10*3/uL (0.04-0.35); Lymphocytes # (M) 16.94 X 10*3/uL (0.90-5.00); Monocytes # (M) 0.45 X 10*3/uL (0.20-1.00); Neutrophils % (M) 23 %; RBC Morphology NORMAL; Smudge Cells PRESENT
== END | disposition home or self-care (01) ==
LOC: LABWHC1 13:04
PROVIDERS: ATTEND Physician Assistant
DX: Z12.5 Encounter for screening for malignant neoplasm of prostate (principal); I10 Essential (primary) hypertension; R07.9 Chest pain, unspecified
CPT/HCPCS: 36415; 80053; 80061; 82550; 82553; 84153; 84484; 85025

== ENCOUNTER → 2022-11-29 | Outpatient (CLI) | payer MEDICARE ==
--- NOTE | 2022-11-30 12:49 | CT ---
EXAMINATION TYPE: CT chest wo/w con DATE OF EXAM: 11/29/2022 COMPARISON: Radiograph 11/24/2022 HISTORY: 72-year-old male R91.8, chest pain and lung nodule TECHNIQUE: Contiguous axial scanning of the chest before and after the administration of 100 mL of Is ovue 300. Coronal/sagittal reconstructions performed. CT DLP: 1177mGycm. Automatic exposure control utilized for a dose reduction. FINDINGS: Heart normal size without pericardial effusion. Scattered three-vessel coronary artery calcifications are present. Aneurysm ascending aorta at 4.0 cm in upper descending thoracic aorta at 3.3 cm. Conventional arch ve ssel branching anatomy. Aneurysm lower descending thoracic aorta at 3.3 cm. No thoracic lymph adenopathy by CT size criteria. Large caliber to the main right and left pulmonary arteries measuring up to 2.9 cm suggesting underly ing pulmonary arterial hypertension. Large irregular mass anterior right upper lobe measuring up to 6.7 cm AP by 5.9 cm wide by 5.5 cm lifts and cranes inspector niocaudal. This abuts the anterior pleural margin and extends to the right suprahilar level showing v ariable encasement of right upper lobe segmental and subsegmental pulmonary vasculature and bronchi. A few small satellite nodules measuring up to 5 mm just adjacent at the right apex. Otherwise, no consolidation or pleural effusion. Visualized upper abdomen shows right renal cyst measuring 1.9 cm. Small hiatal hernia. Hilar splenule . Moderate to large stool burden. Prominent ingested debris within the stomach. Bones: Chronic-appearing vertebral compression collapse of T5 with focal kyphotic deformity. Mild ret ropulsion into the ventral spinal canal. There are degenerative interbody ankylosis lower thoracic spine. Marked osteopenia. No discrete osseo us destructive process is seen. IMPRESSION: 1. Large 6.7 cm irregular mass anterior right upper lobe abutting the anterior pleural margin and ext ending to the right suprahilar level. There is variable encasement of right upper lobe segmental and subsegmental pulmonary vasculature and bronchi. For tissue sampling, consider right upper lobe endobr onchial access. 2. A few small satellite nodules measuring up to 5 mm in the adjacent right apex. Otherwise, no metas tatic disease seen. 3. Pulmonary arterial hypertension. Mild aneurysm ascending aorta 4.0 cm. Three-vessel coronary arter y calcifications.
== END ==
LOC: RADCTMAIN 14:18
PROVIDERS: ATTEND Pediatrics
DX: I27.21 Secondary pulmonary arterial hypertension (principal); R91.8 Other nonspecific abnormal finding of lung field; I71.21 Aneurysm of the ascending aorta, without rupture; I25.10 Atherosclerotic heart disease of native coronary artery without angina pectoris
CPT/HCPCS: 71270; Q9967

== ENCOUNTER → 2022-12-16 | Outpatient (CLI) | payer MEDICARE ==
--- NOTE | 2022-12-16 15:01 | PE ---
EXAMINATION TYPE: PET CT fusion skull to thigh DATE OF EXAM: 12/16/2022 COMPARISON: CT chest November 29, 2012 HISTORY: Solitary pulmonary nodule, abnormal CT. TECHNIQUE: Following the intravenous administration of 10.0 mCi of F-18 FDG, whole body images are p erformed from the skull base to the midthigh. Images are reviewed on the computer in the coronal, ax ial, and sagittal planes. Reconstructed rotating images are created on independent workstation and r eviewed on the computer. A localization and attenuation correction CT is performed in conjunction w ith the PET scan. Blood glucose level equals 87 SCAN: Initial Scan FINDINGS: SKULL BASE AND NECK: No areas of abnormal hypermetabolic uptake. CHEST, MEDIASTINUM, AND HILAR REGION: Persistent large right upper lung mass measuring 6.0 x 5.2 cm a xial image 84 with abnormal hypermetabolic uptake, max SUV is 4.31 on axial image 87. Small focus of abnormal radiotracer uptake in the distal esophagus at level of diaphragm axial image 122, max SUV is 3.48. No additional areas of abnormal hypermetabolic uptake. ABDOMEN AND PELVIS: Normal excretion. No hypermetabolic adrenal masses. No areas of abnormal hypermet abolic uptake. OSSEOUS STRUCTURES: Small focus of abnormal hypermetabolic uptake left proximal clavicle axial image 77 with linear lucency could reflect acute fracture injury, this is new from recent CT. Correlate cli nically. No additional areas of abnormal hypermetabolic uptake. OTHER CT: Nasal septum is deviated to right of midline. Coronary artery calcification and/or stents a re redemonstrated. Bilateral gynecomastia is redemonstrated. Calcifications presumed calcified retroperitoneal lymph nodes in the retroperitoneum near axial image 161 are noted. There is 11 mm left renal calculus axial image 161. Enlarged prostate consistent with BPH. Moderate axial joint space loss in both hips. Scoliosis in the lumbar spine is present. IMPRESSION: 1. Abnormal hypermetabolic uptake in the 6.0 cm right upper lung mass suspicious for neoplasm. No abn ormal thoracic adenopathy. No distal metastatic disease. 2. Subtle hypermetabolic uptake distal esophagus at level of diaphragmatic hiatus, mucosal lesion or neoplasm cannot be excluded at this level. Direct visualization is advised. 3. Suspect acute nondisplaced fracture left proximal clavicle. Correlate clinically with recent traum a.
== END | disposition home or self-care (01) ==
LOC: RADPETMAIN 13:05
PROVIDERS: ATTEND Internal Medicine Critical Care Medicine
DX: R91.8 Other nonspecific abnormal finding of lung field (principal); K22.89 Other specified disease of esophagus; R91.1 Solitary pulmonary nodule
CPT/HCPCS: 78815; A9552

== ENCOUNTER 2022-12-29 12:38 | Day surgery (SDC) | payer MEDICARE ==
[2022-12-27 12:28] VITALS: BMI 25.8
[~2022-12-29 12:38] MED LIST changes: -ACETAMINOPHEN TAB 500 MG TAB PO ONE; -DEXAMETHASONE SOD PHOSPHATE 10 MG/ML 1 ML VIAL IV ONE; -GABAPENTIN 300 MG CAP PO ONE; -HYDROmorphone 0.5 MG/0.5 ML SYRINGE IVP PRN; +LACTATED RINGERS 1,000 ML IV SCH; -MELOXICAM 7.5 MG TAB PO ONE; -MIDAZOLAM 2 MG/2 ML VIAL IV PRN; -ONDANSETRON 4 MG/2 ML VIAL IVP ONE; -TRANEXAMIC ACID 1,000 MG in SODIUM CHLORIDE 0.9% 100 ML IVPB ONE
--- NOTE | 2022-12-29 13:18 | CT ---
EXAMINATION TYPE: CT chest wo con CT DLP: 359.3 mGycm, Automated exposure control for dose reduction was used. DATE OF EXAM: 12/29/2022 1:07 PM COMPARISON: CT chest 11/29/2022, PET/CT 12/16/2022 CLINICAL INDICATION:Male, 72 years old with history of ION BRONCH; PHH, ION BRONCH TECHNIQUE: Multiple axial images were obtained through the chest without IV contrast. Lack of IV or o ral contrast limits evaluation of solid and hollow organ viscera. . Coronal and sagittal reformats re viewed. FINDINGS: Exam is for bronchoscopy planning and not for diagnostic purposes. LUNGS/ PLEURA/AIRWAY: Mild COPD changes. No pleural effusion or pneumothorax. Redemonstration of a la rge right upper lobe spiculated mass measuring up to 6.3 cm. This again abuts the anterior pleural m argin extends to the right suprahilar level showing variable encasement of the right upper lobe segme ntal and subsegmental pulmonary vasculature and bronchi. Few small satellite nodules measuring up to 5 mm just adjacent at the right apex again demonstrated. HEART: Size within normal limits. No pericardial effusion. Coronary microcalcifications. MEDIASTINUM: No gross evidence of adenopathy. VASCULATURE: Ascending aortic aneurysm measuring up to 4.0 cm descending thoracic aortic aneurysm me asuring up to 3.3 cm. MUSCULOSKELETAL: No acute osseous abnormalities. Remote healing right-sided 6 rib fracture. Chronic-a ppearing vertebral compression collapse of T5 with focal kyphotic deformity. Mild retropulsion the ve ntral spinal canal redemonstrated. Degenerative interbody ankylosis lower thoracic spine. Marked oste openia. SOFT TISSUES/LYMPH NODES: Unremarkable. LOWER NECK: No significant findings. UPPER ABDOMEN: Sumit lobe cyst redemonstrated. Small hiatal hernia. IMPRESSION: 1. Redemonstration of large 6.3 cm irregular mass in the anterior right upper lobe concerning for pr imary lung malignancy. Few small satellite nodules are demonstrated. 2. Mild ascending thoracic aortic aneurysm measuring up to 4.0 cm.
[2022-12-29] MEDS ORDERED: ONDANSETRON 4 MG/2 ML VIAL ONE (13:48)
[2022-12-29] MEDS ORDERED: DEXAMETHASONE SOD PHOSPHATE 4 MG/ML 1 ML VIAL IVP ONE ×2 (13:53→13:58)
[2022-12-29] MEDS ORDERED: ONDANSETRON 4 MG/2 ML VIAL IVP ONE (13:57)
[2022-12-29] MEDS ORDERED: ROCURONIUM 10 MG/ML (5 ML VIAL) IV ONE (14:51)
[2022-12-29] MEDS ORDERED: MIDAZOLAM 2 MG/2 ML VIAL ONE (14:51)
[2022-12-29] MEDS ORDERED: SUGAMMADEX SODIUM 200 MG/2 ML SDV IV ONE (14:51)
[2022-12-29] MEDS ORDERED: LIDOCAINE 2% INJ 20 MG/ML (2 ML VIAL) ONE (14:51)
[2022-12-29] MEDS ORDERED: PROPOFOL 10 MG/ML 20 ML VIAL IV ONE (14:51)
[2022-12-29] MEDS ORDERED: SUCCINYLCHOLINE CHLORIDE 200 MG/10 ML VIAL IV ONE (14:51)
[2022-12-29] MEDS ORDERED: fentaNYL (PF) 50 MCG/ML 2 ML AMP ONE (14:51)
[2022-12-29] MEDS ORDERED: LACTATED RINGERS 1,000 ML IV ONE (15:51)
[2022-12-29 16:20] VITALS: TEMP 98.2
--- NOTE | 2022-12-29 16:22 | FL ---
Intraoperative/procedural fluoroscopic services were provided. Total fluoroscopy time is 3.45 minutes with a total of 1 submitted images to PACS. Please see the operative/procedural note for further det ails. DAP: 6.5558 Gycm2
[2022-12-29 16:48] VITALS: RESP 18
[2022-12-29 17:06] VITALS: BP 133/81; PULSE 68
--- NOTE | 2023-01-05 22:53 | P.PCN ---
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 Informed consent was obtained from the patient after explaining all the risks (pneumothorax, life threatening bleeding, infection and adverse effects due to medications), benefits and alternatives to the procedure which the patient appeared to understand and so stated. The patient was connected to the monitoring devices. General anesthesia was induced and the patient was intubated by anesthesia. A final timeout was performed and the procedure confirmed by the attending staff bronchoscopist. The bronchoscope was inserted and the airway examined. Regular airway inspection was done. The right upper lobe apical segment was instructed by tumor. The bronchus intermedius, right middle lobe and the right lower lobe and left upper and left lower lobe bronchi were all patent and within normal limits. The bronchoscope was removed after doing a therapeutic airway suctioning and removal of all mucous plugs. The flexible bronchoscope was removed and the robotic bronchoscope was inserted. Registration was completed. I next guided the robotic bronchoscope using the navigation system into the right upper lobe mass . Once in proper position, the bronchoscope was frozen. The radial EBUS probe was placed through the bronchoscope and confirmed abnormal u/s images vs normal lung. A needle was placed through the working channel and under fluoroscopic guidance, we sampled the area thought to have the mass twice. We then used a cloud biopsy pattern with ultrasound confirmation for 4 additional passes with the needle. U/S evaluation was then used to reconfirm location. Forceps were next introduced through working channel and extended the appropriate distance and 3 transbronchial biopsies were performed using fluoroscopic guidance. The u/s probe was then reinserted to confirm location. When confirmed this process was repeated for a total of 6 transbronchial biopsies. A brush was placed through the extendable working channel for 1 pass with fluoroscopic guidance. Endobronchial brushings of the right upper lobe mass was done.; 40ml of saline was then instilled into the area of the lesion. The robotic bronchoscope was removed and the airway inspected with a flexible bronchoscope and 10 ml of effluent from the BAL was collected. FINDINGS: 1.The airways were normal and the right upper lobe apical segment was obstructed by tumor 2 Successful navigation, ultrasonographic identification, and biopsies of right right upper lobe mass RECOMMENDATIONS: Await pathology and cytology results The referring physician will be alerted to the results when available. The patient was advised to follow up with the referring physician with the biopsy results Patient will be called with results.
== END 2022-12-29 17:20 | disposition home or self-care (01) ==
LOC: ORWHC2ENDO 12:38
PROVIDERS: ATTEND Internal Medicine Critical Care Medicine
DX: C34.11 Malignant neoplasm of upper lobe, right bronchus or lung (principal); Z79.899 Other long term (current) drug therapy
CPT/HCPCS: 88108; 88305; 88173; 88342; 88341; 71250; 31628; 31629; 31623; 31624; J2250; J0330; J1100; J2405; J3010; J2704; J2001; S2900

== ENCOUNTER → 2023-01-11 | Outpatient (CLI) | payer MEDICARE ==
--- NOTE | 2023-01-11 14:24 | MR ---
EXAMINATION TYPE: MR brain wo/w con DATE OF EXAM: 01/11/2023 1:52 PM CLINICAL INDICATION:Male, 72 years old with history of C91.10; leukemia, recent mets to the lungs. COMPARISON: None TECHNIQUE: Multi planar, multi sequence imaging was performed through the brain including: T1, T2, In version recovery, susceptibility weighted imaging and gradient echo imaging and Diffusion weighted im aging. The patient was then given intravenous contrast and multi planar, T1 fat-saturation images wer e obtained. IV Contrast: 8 cc Gadavist FINDINGS: The blackwell-white junctions, ventricular system, basal cisterns appear unremarkable. Diffusion-weighted imaging shows no evidence of restricted diffusion to suggest acute/subacute infarct. Intracranial art erial flow voids are maintained. Midline structures show no abnormality. Scattered foci of high T2 si gnal intensity are seen within the periventricular white matter. The susceptibility weighted images d o not reveal any evidence for micro-hemorrhage. After administration of gadolinium, no abnormal enhan cement is seen. The bone marrow signal is within normal limits. Paranasal sinuses and mastoid air cells: No significant paranasal sinus disease. Visualized orbits: Orbital contents are intact. IMPRESSION: 1. No evidence of intracranial mass, acute/subacute infarct, or abnormal enhancement. 2. Nonspecific white matter changes, likely related to small vessel ischemic disease
== END | disposition home or self-care (01) ==
LOC: RADMRIMAIN 12:54
PROVIDERS: ATTEND Internal Medicine Hematology & Oncology
DX: C91.10 Chronic lymphocytic leukemia of B-cell type not having achieved remission (principal); R90.82 White matter disease, unspecified
CPT/HCPCS: 70553; A9585

== ENCOUNTER → 2023-01-16 | Outpatient (CLI) | payer MEDICARE ==
[2023-01-16 13:42] LABS: Partial Thromboplastin Time 24.4 sec (22.0-30.0); Prothrombin Time 10.6 sec (9.0-12.0)
[2023-01-16 22:39] LABS: Blood Urea Nitrogen 9.8 mg/dL (9.0-27.0); Carbon Dioxide 19.9 mmol/L (21.6-31.8); Chloride 95 mmol/L (96-109); Glucose 89 mg/dL (70-110); Potassium 4.7 mmol/L (3.5-5.5); Sodium 128 mmol/L (135-145)
[2023-01-16 23:04] LABS: HCT 46.6 % (39.6-50.0); MCH 32.2 pg (27.0-32.0); MCHC 34.3 d/dL (32.0-37.0); MCV 93.8 FL (80.0-97.0); Mean Platelet Volume 9.6 FL (9.5-12.2); NRBC Per 100 WBC 0.02 X 10*3/uL (0.00-0.01); Platelet Count 224 X 10*3/uL (140-440); RBC 4.97 X 10*6/uL (4.40-5.60); RDW 13.7 % (11.5-14.5); WBC 12.93 X 10*3/uL (4.50-10.00)
[2023-01-16 23:11] LABS: Appearance,Urine Clear (Clear); Bilirubin,Urine Negative (Negative); Blood,Urine Negative (Negative); Color,Urine Yellow (Yellow); Ketones,Urine Negative (Negative); Nitrite,Urine Negative (Negative); PH, Urine 7.5; Specific Gravity,Urine 1.016 (1.001-1.030)
[2023-01-16 23:48] LABS: Bacteria,Urine None Seen (None Seen)
[2023-01-17 00:36] LABS: Basophils # (M) 0 X 10*3/uL (0.00-0.10); Crenated RBC 2+; Eosinophils # (M) 0.13 X 10*3/uL (0.04-0.35); Lymphocytes # (M) 9.83 X 10*3/uL (0.90-5.00); Monocytes # (M) 0.13 X 10*3/uL (0.20-1.00); Neutrophils % (M) 22 %; Smudge Cells Present
== END | disposition home or self-care (01) ==
LOC: LABPAT 11:56
PROVIDERS: ATTEND Thoracic Surgery (Cardiothoracic Vascular Surgery)
DX: Z01.812 Encounter for preprocedural laboratory examination (principal); E86.0 Dehydration; R58 Hemorrhage, not elsewhere classified; Z79.899 Other long term (current) drug therapy
CPT/HCPCS: 36415; 80051; 81001; 82565; 82947; 84520; 85025; 85610; 85730; 87086

== ENCOUNTER 2023-01-26 09:26 | Inpatient (IN) | payer MEDICARE ==
[~2023-01-26 09:26] MED LIST changes: +DEXAMETHASONE SOD PHOSPHATE 4 MG/ML 1 ML VIAL IV ONE; +HYDROmorphone 0.5 MG/0.5 ML SYRINGE IVP PRN; +ONDANSETRON 4 MG/2 ML VIAL IVP ONE
[2023-01-26] MEDS ORDERED: LACTATED RINGERS 1,000 ML IV ONE ×7 (10:00→15:58)
[2023-01-26] MEDS ORDERED: ONDANSETRON 4 MG/2 ML VIAL IVP ONE (10:15)
[2023-01-26] MEDS ORDERED: DEXAMETHASONE SOD PHOSPHATE 4 MG/ML 1 ML VIAL IVP ONE (10:15)
[2023-01-26] MEDS ORDERED: MIDAZOLAM 2 MG/2 ML VIAL IVP ONE (10:27)
[2023-01-26] MEDS ORDERED: NEOSTIGMINE 1 MG/ML 10 ML VIAL ONE (11:14)
[2023-01-26] MEDS ORDERED: MIDAZOLAM 2 MG/2 ML VIAL ONE (11:14)
[2023-01-26] MEDS ORDERED: fentaNYL (PF) 50 MCG/ML 2 ML AMP ONE (11:14)
[2023-01-26] MEDS ORDERED: HYDROmorphone (PF) 1 MG/ML ONE (11:14)
[2023-01-26] MEDS ORDERED: ALBUMIN HUMAN 5% (12.5gm) 250 ML BOTTLE IVPB ONE (11:14)
[2023-01-26] MEDS ORDERED: WATER FOR INJECTION, STERILE 10 ML VIAL IV ONE (11:14)
[2023-01-26] MEDS ORDERED: LIDOCAINE 2% INJ 20 MG/ML (2 ML VIAL) ONE (11:14)
[2023-01-26] MEDS ORDERED: SUCCINYLCHOLINE CHLORIDE 200 MG/10 ML VIAL IV ONE (11:14)
[2023-01-26] MEDS ORDERED: ROCURONIUM 10 MG/ML (5 ML VIAL) IV ONE (11:14)
[2023-01-26] MEDS ORDERED: PHENYLEPHRINE 10 MG/ML VIAL ONE (11:14)
[2023-01-26] MEDS ORDERED: PROPOFOL 10 MG/ML 20 ML VIAL IV ONE (11:14)
[2023-01-26] MEDS ORDERED: ROPIVACAINE 5 MG/ML 30 ML VIAL ONE (11:14)
[2023-01-26] MEDS ORDERED: GLYCOPYRROLATE 0.2 MG/ML 2 ML VIAL ONE (11:14)
[2023-01-26] MEDS ORDERED: ePHEDrine 50 MG/ML 1 ML VIAL ONE (11:14)
[2023-01-26] MEDS ORDERED: SODIUM CHLORIDE 0.9% (PF) 10 ML VIAL ONE (11:14)
[2023-01-26] MEDS ORDERED: LABETALOL 5 MG/ML VIAL MDV ONE (11:14)
[2023-01-26] MEDS ORDERED: SUGAMMADEX SODIUM 200 MG/2 ML SDV IV ONE (11:14)
[2023-01-26] MEDS ORDERED: KETAMINE 10 MG/ML 20 ML VIAL ONE (11:14)
[2023-01-26] MEDS ORDERED: BUPIVACAINE (PF) 0.5% 30 ML VIAL SQ ONE (11:57)
--- NOTE | 2023-01-26 13:35 | P.ANPRN ---
Procedure Note - Anesthesia - Nerve Block Performed Right Erector Spinae Single Time Out Performed: Yes (1026) Date of Procedure: 01/26/23 Location of Patient: PreOp Indication: Acute Post-Operative Pain, Dx/Pain Location (Right chest), Requested by Surgeon Specifically requested for management of pain by DrCricket: Ryan Watson Sedation Type: Sedate with meaningful contact maintained Preparation: Sterile Prep Position: Left Lateral Catheter: None Needle Types: Pajunk Needle Gauge: 21 Ultrasound used to visualize needle placement: Yes Ultrasound used to observe medication spread: Yes Injectate: 0.5% Ropivacaine (see comment for volume) (25 cc + 10 cc of NS) Blood Aspirated: No Pain Paresthesia on Injection Noted: No Resistance on Injection: Normal Image Stored and Saved: Yes Events: Uneventful and Well Tolerated - Invasive Line Left Arterial Line Time Out Performed: Yes Date of Procedure: 01/26/23 (\) Location of Patient: PreOp Preparation: Sterile Prep, Sterile Dressing Arterial Line Location: Radial Ultrasound Used: No Purpose - Visualization and Identification of Vasculature: No Image Stored and Saved: Yes Narrative: Informed consent obtained from the patient. Procedure was performed under complete aseptic precautions. The left wrist is slightly extended and placed on a roll of cloth. Radial artery palpated and appeared to have a intact collateral circulation. Front of the wrist was cleaned with ChloraPrep. It was draped and 2 mL of 1% lidocaine was infiltrated and ability into the front of the wrist. A 20-gauge two and half inch Arrow arterial catheter was inserted and a bright red blood/back was noticed. It was connected to the pressure monitoring line and the flashback was confirmed. The line was sutured into the skin. Tegaderm dressing was applied. Patient tolerated the procedure very well with no apparent complications.
[2023-01-26 15:16] LABS: Allen Test Performed? Yes
[2023-01-26 15:20] LABS: HCT 37.2 % (39.0-53.0); MCH 32.7 pg (25.0-35.0); MCV 93.3 fL (80.0-100.0); Mean Platelet Volume 7.8; Platelet Count 205 k/uL (150-450); RBC 3.99 m/uL (4.30-5.90); RDW 12.7 % (11.5-15.5); WBC 16.6 k/uL (3.8-10.6)
[2023-01-26 15:22] LABS: ABG Base Excess -8.2 mmol/L; ABG HCO3 15 mmol/L (21-25); ABG PCO2 27 mmHg (35-45); ABG PH 7.38 (7.35-7.45); ABG PO2 130 mmHg (83-108)
[2023-01-26] MEDS ORDERED: ONDANSETRON 4 MG/2 ML VIAL IVP PRN (16:04)
[2023-01-26] MEDS ORDERED: FLUTICASONE 50MCG/SPRAY NASAL 16GM EA NOSTRIL PRN (16:04)
[2023-01-26] MEDS ORDERED: DEXTROSE 5%-0.45% NACL 1,000 ML IV SCH (16:04)
[2023-01-26] MEDS ORDERED: IPRATROPIUM-ALBUTEROL 3 ML NEB IH PRN (16:04)
[2023-01-26] MEDS ORDERED: traMADol 50 MG TAB PO PRN (16:04)
--- NOTE | 2023-01-26 16:15 | P.OP ---
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 Thoracoscopic re-resection of the bronchial stump. Anesthesia: JAZMIN Surgeon: Ryan Watson Supervisor Spinning #1: Vivek Caceres Estimated Blood Loss (ml): 300 IV fluids (ml): 1,500 Urine output (ml): 500 Pathology: other (Right upper lobe; mediastinal lymph nodes levels: R4, R5, R8, R9, R 10, R 11, level 7; bronchial stump) Indications for Procedure: 72-year-old male presents with a large mass in the right upper lobe. Broncho scopy was negative. Endobronchial ultrasound did not demonstrate any lymph nodes for biopsy to speak of in the mediastinum. Attempted biopsy of the hilar and subcarinal lymph nodes were nondiagnostic. PET scan shows uptake in the primary tumor but no uptake in the nodes. Patient was recommended to either undergo neoadjuvant chemotherapy followed by surgery or undergo immediate surgery. He opted for the latter. Operative Findings: There were dense, highly vascularized inflammatory adhesions throughout the upper lobe posteriorly medially superiorly and anteriorly. Only the lateral portion of the upper lobe was free. The middle lobe and lower lobes were relatively free of adhesions. There was only mild anthracotic adenopathy but there was a markedly inflammatory reaction within the hilum making dissection along the planes difficult and bloody. Following the lobectomy the initial frozen section of the bronchial margin was positive for microscopic tumor. Following re-resection of the bronchial stump frozen section was negative. Description of Procedure: A she was brought to the operating room and placed supine on the operating table. Gen. anesthesia was induced. Patient was intubated with a double-lumen endotracheal tube was positioned thoracoscopically. The majority of the upper lobe bronchus was grossly free of tumor although tumor was visible at the distal end of the upper lobe bronchus. Patient was turned in left lateral decubitus position and appropriately positioned for robotic lobectomy. Right chest was s terilely prepped and draped. 4 robotic ports were placed. 8 mm ports were placed in the anterior axillary line in the eighth interspace and posteriorly in the fifth interspace. A 12 mm ports were placed in the midclavicular line and the eighth interspace and in the posterior axillary line in the eighth interspace. Working port was placed in the 10th interspace at the level of the diaphragm anteriorly. Robot was docked and the chest was explored with findings as noted above. Tedious and difficult takedown of majority of the adhesions of the upper lobe was performed with electrocautery. The adhesions were too dense and 2 vascular to take down any other way. We then took down the inferior pulmonary ligament and continued dissection up taking the R9, R8 and level7 lymph nodes and sending them for permanent section. Dissection was carried anteriorly on the bronchus intermedius and then proximally to the takeoff of the upper lobe bronchus. R 11 lymph node was resected here. Attempts to encircle the upper lobe bronchus were unsuccessful at this point we ran into some bleeding. There was a small branch the pulmonary artery that was evident. Was decided to pack this with Surgicel and moving anteriorly. The superior pulmonary vein was identified after taking down some further adhesions and branches draining the middle lobe and upper lobe were visualized. We encircled the upper lobe branches and ligated and divided these with a single firing of a robotic vascular stapler. We now carried the dissection onto the pulmonary artery. There was some R5 lymph nodes present in the region of the superior vena cava and these were resected. As we encircled the truncus anterior doses of the pulmonary artery leading encountered some R 10 lymph nodes which were resected and sent for permanent section. Once the truncus anterior doses was encircled we were able to ligate and divide it with a robotic vascular stapler. Sected distally along the pulmonary artery and encountered a small branch leading to the posterior segment of the upper lobe. This was ligated and divided with a robotic stapler. Dissecting further we came to our Surgicel and middle we had now completely encircle the bronchus. Further dissection was carried along the bronchus and the bronchus was ligated and divided with a robotic green stapler. We now finished the dissection of the adhesions along the azygos vein and the lobe was from the middle lobe and lower lobe with multiple firings of the robotic stapler utilizing both blue and green loads. Once the lobe was completely freed it was placed in an Endo Catch bag and retracted toward the working port. We now dissected the paratracheal region and resected R4 lymph nodes. These were sent for permanent section. We now enlarged the working port incision and were able to remove the specimen and sent it for frozen section. Chest was copiously irrigated and checked for air leak. The bronchial stump had no air leak and there was minimal air leak noted from the superior segment of the lower lobe. 28-Slovenian chest tube was placed through separate stab incision anteriorly and positioned posterior apically. The lung was reinflated and we began closing waiting for frozen section. During closure the frozen section returned positive bronchial margin with microscopic adenocarcinoma at the bronchial margin. 2 of the incisions were reopened and the video thoracoscope was inserted through the smaller through the working port incision we were able to further dissect the bronchial stump and there was about a centimeter of bronchial stump that was remaining coming off the mainstem bronchus and bronchus intermedius. We able to re-resect the bronchial stump utilizing Endo REE stapler. This was brought out and carefully marked and sent for pathology. Frozen section returned negative on the new bronchial stump and we reclosed the chest. Thoracoscopic incisions were closed with 2-0 and 4-0 Vicryl. The working port larger incision was closed with 0 Vicryl and 3-0 Vicryl. Chest tube was secured with an 0 Ethibond suture. In glue and dry sterile dressings were applied to the incisions and the chest tube dressing was applied to the chest tube area. Chest tube was connected to a Pleur-evac. Minimal air leak was noted. Patient was turned supine and extubated and transferred to recovery in stable condition.
--- NOTE | 2023-01-26 16:40 | XR ---
EXAMINATION TYPE: XR chest 1V portable DATE OF EXAM: 01/26/2023 HISTORY: Shortness of breath. COMPARISON: 11/24/2022 TECHNIQUE: Single view of the chest is submitted. FINDINGS: Status post right-sided lobectomy with right-sided thoracotomy tube in place. There is subcutaneous e mphysema. Pleural parenchymal densities seen at the lung bases. Small right apical pneumothorax prese nt. The heart is stable. Hilar and mediastinal structures are within normal limits. Degenerative changes are seen of the dorsal spine. IMPRESSION: 1. Postoperative changes of right-sided lobectomy.
[2023-01-26] MEDS: IPRATROPIUM-ALBUTEROL 3 ML NEB IH SCH ×2 (17:41→20:07)
[2023-01-26 18:03] LABS: Glucose,Whole Blood 189 mg/dL (70-110)
[2023-01-26] MEDS: KETOROLAC 15 MG/ML 1 ML VIAL IVP SCH ×2 (18:07→23:47)
[2023-01-26] MEDS: HEPARIN SODIUM,PORCINE/PF 5,000 UNIT/0.5 ML SYRINGE SQ SCH ×2 (18:09→23:46)
--- NOTE | 2023-01-26 19:52 | P.CNPUL ---
History of Present Illness Consult date: 01/26/23 Chief complaint: Right upper lobectomy History of present illness: 72-year-old male patient was referred to me initially for a lung mass. I saw the patient in my office and the patient was found to have a large right upper lobe mass measuring up to 6.3 cm in size and there was no evidence of any significant lymphadenopathy. This was an irregular mass in the anterior segment of the right upper lobe and some few small satellite nodules were also demonstrated. These were measuring up to 5 mm in size. A PET scan was also done outpatient basis that showed the right upper lobe mass that showed increased metabolic activity and there was some subtle hypermetabolic uptake in the distal esophagus at the level of the diaphragmatic hiatus. No evidence of any distant metastases. No thoracic lymphadenopathy. I performed a bronchoscopy and the patient and the right upper lobe bronchus was essentially obstructed and biopsies confirmed the presence of adenocarcinoma of the lung. PFTs were adequate. In fact, the patient a normal PFT. His comorbid conditions include hypertension. Based on that, the patient was taken to the operating r oom and the patient underwent a robotic-assisted thoracoscopic right upper lobectomy with mediastinal lymph node dissection and takedown of adhesions. Note that the bronchial margins came back positive and the patient underwent a thoracoscopic resection/reresection of the bronchial stump. The margins were found to be negative following the second resection. A right-sided chest tube was inserted and the patient was transferred to recovery and later on to the intensive care unit for further monitoring. His blood work shows that the risk of 16.6 with a hemoglobin of 13. His postop chest x-ray showed evidence of a right upper lobectomy and there was evidence of subcu emphysema in the right chest. Right-sided chest tube was in place and the patient had a small right apical pneumothorax. There were also some atelectatic changes in left lung base. The output from the chest with this positive air leak. Review of Systems Further review of system was done and essentially negative other things mentioned above in history of present illness Past Medical History Past Medical History: Cancer, Hypertension, Osteoarthritis (OA) Additional Past Medical History / Comment(s): Pulmonary adenocarcinoma. -2019-no tx yet, just being monitored History of Any Multi-Drug Resistant Organisms: None Reported Past Surgical History: Hernia Repair, Joint Replacement, Orthopedic Surgery Additional Past Surgical History / Comment(s): LEFT CATARACT SURGERY WITH IMPLANTS, HERNIA X2, right CTS, total right knee, COLONOSCOPY, recent bronch. Past Anesthesia/Blood Transfusion Reactions: No Reported Reaction Additional Past Anesthesia/Blood Transfusion Reaction / Comment(s): had hiccups intermittently for a few weeks after carpal tunnel surg. Smoking Status: Never smoker - Past Family History Father Family Medical History: Cancer Mother Family Medical History: Cancer Medications and Allergies Home Medications Medication Instructions Recorded Confirmed Type Losartan Potassium 50 mg PO DAILY 12/27/22 01/26/23 History Fluticasone Nasal [place] [Flonase 2 spray EA NOSTRIL DAILY PRN 01/24/23 01/26/23 History Nasal [place]] Allergies Allergy/AdvReac Type Severity Reaction Status Date / Time No Known Allergies Allergy Verified 01/26/23 10:02 Physical Exam Vitals: Vital Signs Temp Pulse Pulse Resp BP BP BP 01/26/23 17:10 82 16 136/74 109/64 01/26/23 16:55 74 16 110/63 01/26/23 16:38 74 16 129/66 01/26/23 16:22 71 16 122/62 102/60 01/26/23 16:08 97.2 F L 72 16 98/47 01/26/23 10:45 65 18 134/79 01/26/23 10:34 67 17 143/68 01/26/23 10:00 97.3 F L 67 16 181/98 Pulse Ox 01/26/23 17:10 95 01/26/23 16:55 01/26/23 16:38 96 01/26/23 16:22 95 01/26/23 16:08 95 01/26/23 10:45 100 01/26/23 10:34 99 01/26/23 10:00 97 Intake and Output 01/26/23 01/26/23 01/26/23 06:59 14:59 22:59 Intake Total 3050 100 Output Total 300 850 Balance 2750 -750 Intake: IV 3050 100 Output: Urine 850 Estimated Blood Loss 300 Other: Weight 81.3 kg Lethargic, postop, currently comfortable, on 6 L of O2 nasal cannula with pulse ox of 95% Head exam was generally normal. There was no scleral icterus or corneal arcus. Mucous membranes were moist. Neck was supple and without jugular venous distension, thyromegaly, or carotid bruits. Carotids were easily palpable bilaterally. There was no adenopathy. Lungs reveal diminished Breath sounds on the right side and the patient has a right-sided chest tube in place. There is also evidence of subcu emphysema on the right. Output from the chest tube was noted. No evidence of any active air leak at this point. Cardiac exam revealed the PMI to be normally situated and sized. The rhythm was regular and no extrasystoles were noted during several minutes of auscultation. The first and second heart sounds were normal and physiologic splitting of the second heart sound was noted. There were no murmurs, rubs, clicks, or gallops. Abdominal exam revealed normal bowel sounds. The abdomen was soft, non-tender, and without masses, organomegaly, or appreciable enlargement of the abdominal aorta. Examination of the extremities revealed easily palpable radial, femoral and pedal pulses. There was no cyanosis, clubbing or edema. Examination of the skin revealed no evidence of significant rashes, suspicious appearing nevi or other concerning lesions. Neurologically, the patient is awake and alert and the patient does not have any focal neurological deficit. Cranial nerves are essentially intact. Results - Laboratory Findings CBC and BMP: 01/26/23 14:50 ABG ABG pH 7.38 (7.35-7.45) 01/26/23 14:50 ABG pCO2 27 mmHg (35-45) L 01/26/23 14:50 ABG pO2 130 mmHg (83-108) H 01/26/23 14:50 ABG O2 Saturation 99.0 % (94-97) H 01/26/23 14:50 Abnormal lab findings: Abnormal Labs 01/26/23 01/26/23 14:50 14:50 WBC 16.6 H RBC 3.99 L Hct 37.2 L ABG pCO2 27 L ABG pO2 130 H ABG HCO3 15 L ABG O2 Saturation 99.0 H - Diagnostic Findings Chest x-ray: image reviewed Assessment and Plan Plan: Robotic right upper lobe lobectomy with subsequent thoracoscopic evaluation and reresection of the bronchial stump due to positive margins. The patient also had extensive lymph node dissection of the mediastinum. The patient is postop day #0 Post lobectomy, right-sided chest tube in place and the patient has a right apical pneumothorax, there is positive air leak Acute hypoxic respiratory failure, expected outcome of surgery and the patient is currently on 6 L of O2 nasal cannula Left lower lobe atelectasis Adenocarcinoma of the lung with a 6.3 cm right upper lobe mass causing obstruction of the right upper lobe bronchus History of CLL Hypertension Plan Incentive spirometer Titrate oxygen flow to maintain a saturation above 90% Monitor the output and air leak from the right-sided chest tube Daily chest x-rays Monitor surgical wound site Use bronchodilators with DuoNeb updrafts Pain control with Toradol and Ultram Heparin subcu portably prophylaxis We'll continue to follow
[2023-01-26] MEDS ORDERED: HYDROmorphone 1 MG/ML 1 ML SYRINGE IVP PRN (20:47)
[2023-01-27 05:32] LABS: African American GFR (CKD) >90 (>60 ml/min/1.73 sqM); Anion Gap 9 mmol/L; Blood Urea Nitrogen 10 mg/dL (9-20); Carbon Dioxide 24 mmol/L (22-30); Chloride 88 mmol/L (98-107); Glucose 155 mg/dL (74-99); HCT 35.7 % (39.0-53.0); HGB 12.2 gm/dL (13.0-17.5); MCH 32.2 pg (25.0-35.0); MCHC 34.1 g/dL (31.0-37.0); MCV 94.2 fL (80.0-100.0); Mean Platelet Volume 8.1; Non-African American GFR(CKD) >90 (>60 ml/min/1.73 sqM); Platelet Count 193 k/uL (150-450); Potassium 4.1 mmol/L (3.5-5.1); RBC 3.79 m/uL (4.30-5.90); RDW 12.8 % (11.5-15.5); Sodium 121 mmol/L (137-145); WBC 17.1 k/uL (3.8-10.6)
[2023-01-27] MEDS: KETOROLAC 15 MG/ML 1 ML VIAL IVP SCH ×3 (06:18→17:02)
[2023-01-27] MEDS: PANTOPRAZOLE 40 MG TABLET PO SCH (06:19)
[2023-01-27 06:43] LABS: Band Neutrophils % 2 %; Lymphocytes # (M) 7.01 k/uL (1.0-4.8); Monocytes # (M) 0.86 k/uL (0-1.0); Neutrophils % (M) 52 %; Nucleated Red Blood Cells 0 /100 WBC (0-0); RBC Morphology Normal; Total Cells Counted 100
[2023-01-27] MEDS ORDERED: HYDROmorphone 1 MG/ML 1 ML SYRINGE IVP PRN (06:50)
[2023-01-27] MEDS: IPRATROPIUM-ALBUTEROL 3 ML NEB IH SCH ×4 (07:12→19:57)
--- NOTE | 2023-01-27 08:01 | P.PN ---
Subjective Progress Note Date: 01/27/23 Principal diagnosis: 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. Previous medical history of hypertension, remote history of CLL, arthritis, lifetime nonsmoker, chronic hyponatremia POD #1 robotic assisted thoracoscopic right upper lobectomy with mediastinal lymph node dissection and takedown of adhesions, thoracoscopic re-resection of the bronchial stump The patient was seen and examined this morning sitting up in a recliner in the intensive care unit in no acute distress eating breakfast. States pain is well controlled on current medication regimen, denies shortness of breath. Remains in sinus rhythm and hemodynamically stable. Currently on room air with oxygen s aturation in the mid 90s. Right pleural chest tube present to continuous wall suction, air leak present with coughing, 600 mL output since surgery. Labs, chest x-ray reviewed. No other new concerns. Objective - Vital Signs Vital signs: Vital Signs Temp 98 F 01/27/23 04:00 Pulse 80 01/27/23 07:28 Resp 14 01/27/23 07:00 BP 123/78 01/27/23 05:00 Pulse Ox 94 L 01/27/23 07:12 FiO2 Intake & Output 01/26/23 01/27/23 01/27/23 18:59 06:59 18:59 Intake Total 3250 600 Output Total 1790 1200 Balance 1460 -600 Weight 86.9 kg 88.3 kg Intake: IV 3250 600 Dextrose 5%-0.45% NaCl 1, 50 600 000 ml @ 50 mls/hr IV . Q20H ERICKA Rx#:[id number] ceFAZolin 2 gm In Sodium 50 Chloride 0.9% 50 ml @ 100 mls/hr IVPB Q8HR ERICKA Rx# :[id number] Output: Drainage 340 250 Right Chest 340 250 Urine 1150 950 Estimated Blood Loss 300 Other: Voiding Method Indwelling Catheter Indwelling Catheter ABP, PAP, CO, CI - Last Documented Arterial Blood Pressure 110/54 - Exam CONSTITUTIONAL: Appears comfortable, cooperative, no acute distress RESPIRATORY: Lungs sounds diminished bilaterally. Respirations even, nonlabored. Currently on room air with oxygen saturation 95%. Strong cough. CARDIOVASCULAR: S1, S2 present. Regular rate and rhythm, sinus rhythm on telemetry. Palpable peripheral pulses bilaterally. No edema present. No calf pain or tenderness noted GASTROINTESTINAL: Abdomen soft, nontender, nondistended. Active bowel sounds present 4 quadrants. Tolerating diet. Denies flatus GENITOURINARY: Shin present draining clear, yellow urine, 35-200 mL/h overnight INTEGUMENTARY: Skin is warm and dry with evidence of good perfusion NEUROLOGIC: Cranial nerves II through XII intact MUSKULOSKELETAL: Able to move all extremities, strength equal bilaterally PSYCHIATRIC: Alert and oriented to person place and time, appropriate affect, intact judgment and insight INVASIVE LINES AND TUBES: Right pleural chest tube present and connected to wall suction, air leak present with coughing, 220 mL serosanguineous drainage overnight, 600 mL since surgery - Allied health notes Allied health notes reviewed: nursing - Labs CBC & Chem 7: 01/27/23 04:20 01/27/23 04:20 Labs: Abnormal Lab Results - Last 24 Hours (Table) 01/26/23 01/26/23 01/26/23 Range/Units 14:50 14:50 18:02 WBC 16.6 H (3.8-10.6) k/uL RBC 3.99 L (4.30-5.90) m/uL Hgb (13.0-17.5) gm/dL Hct 37.2 L (39.0-53.0) % Neutrophils # (Manual) (1.3-7.7) k/uL Lymphocytes # (Manual) (1.0-4.8) k/uL ABG pCO2 27 L (35-45) mmHg ABG pO2 130 H (83-108) mmHg ABG HCO3 15 L (21-25) mmol/L ABG O2 Saturation 99.0 H (94-97) % Sodium (137-145) mmol/L Chloride (98-107) mmol/L Glucose (74-99) mg/dL POC Glucose (mg/dL) 189 H (70-110) mg/dL Calcium (8.4-10.2) mg/dL 01/27/23 01/27/23 Range/Units 04:20 04:20 WBC 17.1 H (3.8-10.6) k/uL RBC 3.79 L (4.30-5.90) m/uL Hgb 12.2 L (13.0-17.5) gm/dL Hct 35.7 L (39.0-53.0) % Neutrophils # (Manual) 9.20 H (1.3-7.7) k/uL Lymphocytes # (Manual) 7.01 H (1.0-4.8) k/uL ABG pCO2 (35-45) mmHg ABG pO2 (83-108) mmHg ABG HCO3 (21-25) mmol/L ABG O2 Saturation (94-97) % Sodium 121 L (137-145) mmol/L Chloride 88 L (98-107) mmol/L Glucose 155 H (74-99) mg/dL POC Glucose (mg/dL) (70-110) mg/dL Calcium 8.0 L (8.4-10.2) mg/dL - Imaging and Cardiology Chest x-ray: image reviewed Assessment and Plan Assessment: 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, status post robotic assisted thoracoscopic right upper lobectomy with mediastinal lymph node dissection and takedown of adhesions, thoracoscopic re-resection of the bronchial stump History of hypertension Remote history of CLL, currently on active treatment Arthritis Lifetime nonsmoker, preoperative FEV1 95% of predicted, DLCO 111% of predicted Chronic hyponatremia Plan: Continue right-sided pleural chest tube to continuous wall suction, monitor for air leak resolution Incentive spirometry ordered and should be encouraged 10 times every hour while awake. Bronchodilators per pulmonology Will monitor daily labs and x-rays Pain control with current medication regimen Increase activity, ambulate as tolerated GI/DVT prophylaxis Discontinue arterial line, Sihn catheter, Hep-Lock IV fluids Transfer orders placed for [address] [place] [address] cardiac stepdown unit, may transfer when bed available More recommendations to follow
--- NOTE | 2023-01-27 08:28 | XR ---
EXAMINATION TYPE: XR chest 1V DATE OF EXAM: 01/27/2023 COMPARISON: 01/26/2023 HISTORY: Post surgery TECHNIQUE: Single frontal view of the chest is obtained. FINDINGS: There is a small 5-10% right-sided pneumothorax with chest tube in position. Subcutaneous emphysema along the lateral margin of the chest. There is bilateral subsegmental areas of consolidati on. Heart is normal with ectasia of the aorta. Question calcified lymph nodes in the right hilum. IMPRESSION: 1. 5-10% right apical pneumothorax. 2. Bibasilar atelectasis.
[2023-01-27] MEDS: LOSARTAN 50 MG TAB PO SCH (08:35)
[2023-01-27] MEDS: HEPARIN SODIUM,PORCINE/PF 5,000 UNIT/0.5 ML SYRINGE SQ SCH ×2 (08:35→17:02)
[2023-01-27] MEDS ORDERED: SODIUM CHLORIDE 0.9% 1,000 ML IV SCH (09:30)
[2023-01-27] MEDS: SODIUM CHLORIDE TAB 1 GM TAB PO SCH ×2 (09:58→20:59)
--- NOTE | 2023-01-27 10:00 | P.PN ---
Subjective Progress Note Date: 01/27/23 72-year-old male patient was referred to me initially for a lung mass. I saw the patient in my office and the patient was found to have a large right upper lobe mass measuring up to 6.3 cm in size and there was no evidence of any significant lymphadenopathy. This was an irregular mass in the anterior segment of the right upper lobe and some few small satellite nodules were also demonstrated. These were measuring up to 5 mm in size. A PET scan was also done outpatient basis that showed the right upper lobe mass that showed increased metabolic activity and there was some subtle hypermetabolic uptake in the distal esophagus at the level of the diaphragmatic hiatus. No evidence of any distant metastases. No thoracic lymphadenopathy. I performed a bronchoscopy and the patient and the right upper lobe bronchus was essentially obstructed and biopsies confirmed the presence of adenocarcinoma of the lung. PFTs were adequate. In fact, the patient a normal PFT. His comorbid conditions include hypertension. Based on that, the patient was taken to the operating room and the patient underwent a robotic-assisted thoracoscopic right upper lobectomy with mediastinal lymph node dissection and takedown of adhesions. Note that the bronchial margins came back positive and the patient underwent a thoracoscopic resection/reresection of the bronchial stump. The margins were found to be negative following the second resection. A right-sided chest tube was inserted and the patient was transferred to recovery and later on to the intensive care unit for further monitoring. His blood work shows that the risk of 16.6 with a hemoglobin of 13. His postop chest x-ray showed evidence of a right upper lobectomy and there was evidence of subcu emphysema in the right chest. Right-sided chest tube was in place and the patient had a small right apical pneumothorax. There were also some atelectatic changes in left lung base. The output from the chest with this positive air leak. On today's evaluation of 01/27/2023, the patient is sitting up on a chair is, comfortable and is currently on room air oxygen. Right-sided chest tube in place and there is persistent air leak, intermittent of the chest x-ray from today showing a 10% right apical pneumothorax. Subcutaneous emphysema is impro skyler. 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 He has chronic hyponatremia. His sodium level is at 121 today. He was started on salt tablets and fluid restrictions. The Babinski was at 17 with a hemoglobin of 12.2 and a platelet count of 196. He seems to be euvolemic at this point in time. No other significant events overnight. Objective - Vital Signs Vital signs: Vital Signs Temp 98.2 F 01/27/23 08:00 Pulse 84 01/27/23 08:00 Resp 22 01/27/23 08:00 BP 116/68 01/27/23 08:00 Pulse Ox 95 01/27/23 08:00 FiO2 Intake & Output 01/26/23 01/27/23 01/27/23 18:59 06:59 18:59 Intake Total 3250 600 Output Total 1790 1200 350 Balance 1460 -600 -350 Weight 86.9 kg 88.3 kg Intake: IV 3250 600 Dextrose 5%-0.45% NaCl 1, 50 600 000 ml @ 50 mls/hr IV . Q20H ERICKA Rx#:[id number] ceFAZolin 2 gm In Sodium 50 Chloride 0.9% 50 ml @ 100 mls/hr IVPB Q8HR ERICKA Rx# :[id number] Output: Chest Tube Drainage 50 Chest Tube Right Lateral 50 Chest Drainage 340 250 Right Chest 340 250 Urine 1150 950 300 Estimated Blood Loss 300 Other: Voiding Method Indwelling Catheter Indwelling Catheter Urinal ABP, PAP, CO, CI - Last Documented Arterial Blood Pressure 110/54 - Exam Lethargic, postop, currently comfortable, on room air oxygen for now. Head exam was generally normal. There was no scleral icterus or corneal arcus. Mucous membranes were moist. Neck was supple and without jugular venous distension, thyromegaly, or carotid bruits. Carotids were easily palpable bilaterally. There was no adenopathy. Lungs reveal diminished Breath sounds on the right side and the patient has a right-sided chest tube in place. There is also evidence of subcu emphysema on the right. Output from the chest tube was noted. No evidence of any active air leak at this point. Cardiac exam revealed the PMI to be normally situated and sized. The rhythm was regular and no extrasystoles were noted during several minutes of auscultation. The first and second heart sounds were normal and physiologic splitting of the second heart sound was noted. There were no murmurs, rubs, clicks, or gallops. Abdominal exam revealed normal bowel sounds. The abdomen was soft, non-tender, and without masses, organomegaly, or appreciable enlargement of the abdominal aorta. Examination of the extremities revealed easily palpable radial, femoral and pedal pulses. There was no cyanosis, clubbing or edema. Examination of the skin revealed no evidence of significant rashes, suspicious appearing nevi or other concerning lesions. Neurologically, the patient is awake and alert and the patient does not have any focal neurological deficit. Cranial nerves are essentially intact. Room air oxygen - Labs CBC & Chem 7: 01/27/23 04:20 01/27/23 04:20 Labs: Abnormal Lab Results - Last 24 Hours (Table) 01/26/23 01/26/23 01/26/23 Range/Units 14:50 14:50 18:02 WBC 16.6 H (3.8-10.6) k/uL RBC 3.99 L (4.30-5.90) m/uL Hgb (13.0-17.5) gm/dL Hct 37.2 L (39.0-53.0) % Neutrophils # (Manual) (1.3-7.7) k/uL Lymphocytes # (Manual) (1.0-4.8) k/uL ABG pCO2 27 L (35-45) mmHg ABG pO2 130 H (83-108) mmHg ABG HCO3 15 L (21-25) mmol/L ABG O2 Saturation 99.0 H (94-97) % Sodium (137-145) mmol/L Chloride (98-107) mmol/L Glucose (74-99) mg/dL POC Glucose (mg/dL) 189 H (70-110) mg/dL Calcium (8.4-10.2) mg/dL 01/27/23 01/27/23 Range/Units 04:20 04:20 WBC 17.1 H (3.8-10.6) k/uL RBC 3.79 L (4.30-5.90) m/uL Hgb 12.2 L (13.0-17.5) gm/dL Hct 35.7 L (39.0-53.0) % Neutrophils # (Manual) 9.20 H (1.3-7.7) k/uL Lymphocytes # (Manual) 7.01 H (1.0-4.8) k/uL ABG pCO2 (35-45) mmHg ABG pO2 (83-108) mmHg ABG HCO3 (21-25) mmol/L ABG O2 Saturation (94-97) % Sodium 121 L (137-145) mmol/L Chloride 88 L (98-107) mmol/L Glucose 155 H (74-99) mg/dL POC Glucose (mg/dL) (70-110) mg/dL Calcium 8.0 L (8.4-10.2) mg/dL Assessment and Plan Plan: Robotic right upper lobe lobectomy with subsequent thoracoscopic evaluation and reresection of the bronchial stump due to positive margins. The patient also had extensive lymph node dissection of the mediastinum. The patient is postop day #1 Post lobectomy, right-sided chest tube in place and the patient has a right apical pneumothorax, there is positive air leak, small apical pneumothorax present. 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
[2023-01-28] MEDS: HEPARIN SODIUM,PORCINE/PF 5,000 UNIT/0.5 ML SYRINGE SQ SCH ×4 (00:13→23:20)
[2023-01-28] MEDS: KETOROLAC 15 MG/ML 1 ML VIAL IVP SCH ×5 (00:13→23:20)
[2023-01-28] MEDS: PANTOPRAZOLE 40 MG TABLET PO SCH (05:52)
--- NOTE | 2023-01-28 07:12 | XR ---
EXAMINATION TYPE: XR chest 2V DATE OF EXAM: 01/28/2023 COMPARISON: 01/27/2023 HISTORY: Status post right-sided lobectomy TECHNIQUE: Frontal and lateral views of the chest are obtained. FINDINGS: There is a right chest tube unchanged in position. There is a persistent small right thorax, unchange d. There has been marked increase in subcutaneous emphysema along the right lateral chest wall and ba se of the neck. The left lung is clear. The small left lower lobe infiltrate seen on the prior study has nearly compl etely resolved in the interval most likely represents resolving atelectasis. The heart size normal pulmonary vasculature is not congested. The osseous structures are intact. IMPRESSION: 1. Increasing subcutaneous emphysematous along the right lateral chest wall. 2. No change in the small right apical pneumothorax. No change in the right-sided chest tube 3. Improved aeration in the left lung base as described above.
[2023-01-28] MEDS: LOSARTAN 50 MG TAB PO SCH (07:41)
[2023-01-28] MEDS: SODIUM CHLORIDE TAB 1 GM TAB PO SCH ×2 (07:41→20:13)
[2023-01-28] MEDS: IPRATROPIUM-ALBUTEROL 3 ML NEB IH SCH ×4 (07:53→21:18)
[2023-01-28 07:59] LABS: HCT 35.9 % (39.0-53.0); HGB 12.6 gm/dL (13.0-17.5); MCV 94.2 fL (80.0-100.0); Mean Platelet Volume 7.3; Platelet Count 202 k/uL (150-450); RBC 3.81 m/uL (4.30-5.90); RDW 12.8 % (11.5-15.5); WBC 17.9 k/uL (3.8-10.6)
[2023-01-28 08:17] LABS: African American GFR (CKD) >90 (>60 ml/min/1.73 sqM); Anion Gap 7 mmol/L; Blood Urea Nitrogen 13 mg/dL (9-20); Calcium 8.4 mg/dL (8.4-10.2); Carbon Dioxide 24 mmol/L (22-30); Chloride 95 mmol/L (98-107); Glucose 115 mg/dL (74-99); Non-African American GFR(CKD) >90 (>60 ml/min/1.73 sqM); Potassium 4.2 mmol/L (3.5-5.1); Sodium 126 mmol/L (137-145)
--- NOTE | 2023-01-28 08:35 | P.PN ---
Subjective Progress Note Date: 01/28/23 Principal diagnosis: 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. Previous medical history of hypertension, remote history of CLL, arthritis, lifetime nonsmoker, chronic hyponatremia POD #2 robotic assisted thoracoscopic right upper lobectomy with mediastinal lymph node dissection and takedown of adhesions, thoracoscopic re-resection of the bronchial stump The patient was seen and examined this morning sitting up in a recliner on the cardiac stepdown unit in no acute distress. States pain is well controlled on current medication regimen, denies shortness of breath. Remains in sinus rhythm and hemodynamically stable. Currently on room air with oxygen saturation in the high 90s. Right pleural chest tube present to water seal, no air leak this morning, good tidaling, 500 mL output in the last 24 hours. Labs, chest x-ray reviewed. Patient has been ambulatory around the hallway multiple times without difficulty. No other new concerns. Objective - Vital Signs Vital signs: Vital Signs Temp 98.2 F 01/28/23 07:31 Pulse 70 01/28/23 08:08 Resp 17 01/28/23 07:31 BP 130/87 01/28/23 07:31 Pulse Ox 97 01/28/23 07:54 FiO2 Intake & Output 01/27/23 01/28/23 01/28/23 18:59 06:59 18:59 Output Total 1040 1200 Balance -1040 -1200 Output: Chest Tube Drainage 140 300 Chest Tube Right Lateral 140 300 Chest Urine 900 900 Other: Voiding Method Urinal Urinal Urinal ABP, PAP, CO, CI - Last Documented Arterial Blood Pressure 110/54 - Exam CONSTITUTIONAL: Appears comfortable, cooperative, no acute distress RESPIRATORY: Lungs sounds diminished bilaterally. Respirations even, nonlabored. Currently on room air with oxygen saturation 98%. Strong cough. Able to achieve 2500 mL on incentive spirometry. CARDIOVASCULAR: S1, S2 present. Regular rate and rhythm, sinus rhythm on telemetry. Palpable peripheral pulses bilaterally. No edema present. No calf pain or tenderness noted GASTROINTESTINAL: Abdomen soft, nontender, nondistended. Active bowel sounds present 4 quadrants. Tolerating diet. Denies flatus GENITOURINARY: Continues to void, output 1800 mL in the last 24 hours INTEGUMENTARY: Skin is warm and dry with evidence of good perfusion NEUROLOGIC: Cranial nerves II through XII intact MUSKULOSKELETAL: Able to move all extremities, strength equal bilaterally PSYCHIATRIC: Alert and oriented to person place and time, appropriate affect, intact judgment and insight INVASIVE LINES AND TUBES: Right pleural chest tube present to water seal, no air leak present, 300 mL serosanguineous drainage overnight, 500 mL in the last 24 hours - Allied health notes Allied health notes reviewed: nursing - Labs CBC & Chem 7: 01/28/23 07:31 01/28/23 07:31 Labs: Abnormal Lab Results - Last 24 Hours (Table) 01/28/23 01/28/23 Range/Units 07:31 07:31 WBC 17.9 H (3.8-10.6) k/uL RBC 3.81 L (4.30-5.90) m/uL Hgb 12.6 L (13.0-17.5) gm/dL Hct 35.9 L (39.0-53.0) % Sodium 126 L (137-145) mmol/L Chloride 95 L (98-107) mmol/L Creatinine 0.49 L (0.66-1.25) mg/dL Glucose 115 H (74-99) mg/dL - Imaging and Cardiology Chest x-ray: report reviewed, image reviewed Assessment and Plan Assessment: 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, status post robotic assisted thoracoscopic right upper lobectomy with mediastinal lymph node dissection and takedown of adhesions, thoracoscopic re-resection of the bronchial stump History of hypertension Remote history of CLL, currently on active treatment Arthritis Lifetime nonsmoker, preoperative FEV1 95% of predicted, DLCO 111% of predicted Chronic hyponatremia Plan: Continue right-sided pleural chest tube to water seal, monitor output Incentive spirometry should be encouraged 10 times every hour while awake. Bronchodilators per pulmonology Will monitor daily labs and x-rays Pain control with current medication regimen Increase activity, ambulate as tolerated GI/DVT prophylaxis Continue salt tabs for hyponatremia More recommendations to follow
[2023-01-28] MEDS: ACETAMINOPHEN TAB 325 MG TAB PO PRN ×2 (09:47→15:38)
[2023-01-28] MEDS ORDERED: bisacodyL 10 MG SUPP RECTAL STA (10:27)
[2023-01-28] MEDS ORDERED: AMIODARONE 360 MG in DEXTROSE 5% IN WATER 200 ML IV ONE ×2 (12:00)
--- NOTE | 2023-01-28 12:06 | P.PN ---
Subjective Progress Note Date: 01/28/23 72-year-old male patient was referred to me initially for a lung mass. I saw the patient in my office and the patient was found to have a large right upper lobe mass measuring up to 6.3 cm in size and there was no evidence of any significant lymphadenopathy. This was an irregular mass in the anterior segment of the right upper lobe and some few small satellite nodules were also demonstrated. These were measuring up to 5 mm in size. A PET scan was also done outpatient basis that showed the right upper lobe mass that showed increased metabolic activity and there was some subtle hypermetabolic uptake in the distal esophagus at the level of the diaphragmatic hiatus. No evidence of any distant metastases. No thoracic lymphadenopathy. I performed a bronchoscopy and the patient and the right upper lobe bronchus was essentially obstructed and biopsies confirmed the presence of adenocarcinoma of the lung. PFTs were adequate. In fact, the patient a normal PFT. His comorbid conditions include hypertension. Based on that, the patient was taken to the operating room and the patient underwent a robotic-assisted thoracoscopic right upper lobectomy with mediastinal lymph node dissection and takedown of adhesions. Note that the bronchial margins came back positive and the patient underwent a thoracoscopic resection/reresection of the bronchial stump. The margins were found to be negative following the second resection. A right-sided chest tube was inserted and the patient was transferred to recovery and later on to the intensive care unit for further monitoring. His blood work shows that the risk of 16.6 with a hemoglobin of 13. His postop chest x-ray showed evidence of a right upper lobectomy and there was evidence of subcu emphysema in the right chest. Right-sided chest tube was in place and the patient had a small right apical pneumothorax. There were also some atelectatic changes in left lung base. The output from the chest with this positive air leak. On today's evaluation of 01/27/2023, the patient is sitting up on a chair is, comfortable and is currently on room air oxygen. Right-sided chest tube in place and there is persistent air leak, intermittent of the chest x-ray from today showing a 10% right apical pneumothorax. Subcutaneous emphysema is impro skyler. 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 He has chronic hyponatremia. His sodium level is at 121 today. He was started on salt tablets and fluid restrictions. The Babinski was at 17 with a hemoglobin of 12.2 and a platelet count of 196. He seems to be euvolemic at this point in time. No other significant events overnight. 01/28/2023, the patient's postop day #2. The patient is having some bloody output from the chest tube today. The output has been in the order of 500 mL over the past 24 hours. No evidence of any air leak. No evidence of any pneumothorax on today's chest x-ray. He is using the incentive spirometer. Pulling approximately 1500 on his I-S. No chest pain. His ambulating. No respiratory distress. On his chest x-ray, he continues to have some subcutaneous emphysema along the right chest wall. Pulse ox is 98% on room air oxygen. The risk of 17 point family hemoglobin 12.6. BUN is at 30 with a creatinine of 0.4. Objective - Vital Signs Vital signs: Vital Signs Temp 98.2 F 01/28/23 07:31 Pulse 70 01/28/23 08:08 Resp 17 01/28/23 07:31 BP 130/87 01/28/23 07:31 Pulse Ox 97 01/28/23 07:54 FiO2 Intake & Output 01/27/23 01/28/23 01/28/23 18:59 06:59 18:59 Intake Total 360 Output Total 1040 1200 160 Balance -1040 -1200 200 Intake: Oral 360 Output: Chest Tube Drainage 140 300 160 Chest Tube Right Lateral 140 300 160 Chest Urine 900 900 Other: Voiding Method Urinal Urinal Urinal ABP, PAP, CO, CI - Last Documented Arterial Blood Pressure 110/54 - Exam CONSTITUTIONAL: Appears comfortable, cooperative, no acute distress RESPIRATORY: Lungs sounds diminished bilaterally. Respirations even, nonlabo red. Currently on room air with oxygen saturation 98%. Strong cough. Able to achieve 2500 mL on incentive spirometry. CARDIOVASCULAR: S1, S2 present. Regular rate and rhythm, sinus rhythm on telem etry. Palpable peripheral pulses bilaterally. No edema present. No calf pain or tenderness noted GASTROINTESTINAL: Abdomen soft, nontender, nondistended. Active bowel sounds present 4 quadrants. Tolerating diet. Denies flatus GENITOURINARY: Continues to void, output 1800 mL in the last 24 hours INTEGUMENTARY: Skin is warm and dry with evidence of good perfusion NEUROLOGIC: Cranial nerves II through XII intact MUSKULOSKELETAL: Able to move all extremities, strength equal bilaterally PSYCHIATRIC: Alert and oriented to person place and time, appropriate affect, intact judgment and insight INVASIVE LINES AND TUBES: Right pleural chest tube present to water seal, no air leak present, 300 mL serosanguineous drainage overnight, 500 mL in the last 24 hours - Labs CBC & Chem 7: 01/28/23 07:31 01/28/23 07:31 Labs: Abnormal Lab Results - Last 24 Hours (Table) 01/28/23 01/28/23 Range/Units 07:31 07:31 WBC 17.9 H (3.8-10.6) k/uL RBC 3.81 L (4.30-5.90) m/uL Hgb 12.6 L (13.0-17.5) gm/dL Hct 35.9 L (39.0-53.0) % Sodium 126 L (137-145) mmol/L Chloride 95 L (98-107) mmol/L Creatinine 0.49 L (0.66-1.25) mg/dL Glucose 115 H (74-99) mg/dL Assessment and Plan Plan: Robotic right upper lobe lobectomy with subsequent thoracoscopic evaluation and reresection of the bronchial stump due to positive margins. The patient also had extensive lymph node dissection of the mediastinum. The patient is postop day #2 Post lobectomy, right-sided chest tube in place and the patient has a right apical pneumothorax, there is no air leak, the small apical pneumothorax has recovered, BUT his blood in the order of 500 mL over the past 24 hours Acute hypoxic respiratory failure, expected outcome of surgery and the patient is currently on room air oxygen Left lower lobe atelectasis Adenocarcinoma of the lung with a 6.3 cm right upper lobe mass causing obstruction of the right upper lobe bronchus History of CLL Hypertension Hyponatremia probably related to postsurgical on Coumadin due to SIADH, improving Plan Incentive spirometer Titrate oxygen flow to maintain a saturation above 90% Keep the right-sided chest tube in place Daily chest x-rays Monitor surgical wound site Use bronchodilators with DuoNeb [facility] Pain control with Toradol and Ultram Fluid restriction Salt tablets monitor sodium level, sodium level is up to 126 The patient is ambulating Heparin subcu portably prophylaxis We'll continue to follow
[2023-01-28] MEDS ORDERED: DEXTROSE 5% IN WATER 100 ML with AMIODARONE 150 MG IV ONE (12:50)
[2023-01-28] MEDS ORDERED: FUROSEMIDE 10 MG/ML 2 ML VIAL IV ONE (13:00)
[2023-01-28] MEDS: AMIODARONE 450 MG in DEXTROSE 5% IN WATER 250 ML IV SCH ×2 (18:27)
[2023-01-28] MEDS: SENNOSIDES-DOCUSATE SODIUM 1 EACH TAB PO SCH (20:14)
[2023-01-29] MEDS: KETOROLAC 15 MG/ML 1 ML VIAL IVP SCH ×3 (06:37→17:32)
[2023-01-29] MEDS: PANTOPRAZOLE 40 MG TABLET PO SCH (06:37)
[2023-01-29] MEDS: HEPARIN SODIUM,PORCINE/PF 5,000 UNIT/0.5 ML SYRINGE SQ SCH ×2 (07:39→15:34)
[2023-01-29] MEDS: LOSARTAN 25 MG TAB PO SCH (07:40)
[2023-01-29] MEDS: AMIODARONE 200 MG TAB PO SCH ×2 (07:40→20:22)
[2023-01-29] MEDS: SODIUM CHLORIDE TAB 1 GM TAB PO SCH ×2 (07:40→21:21)
[2023-01-29] MEDS: AMIODARONE 450 MG in DEXTROSE 5% IN WATER 250 ML IV SCH ×2 (07:43)
--- NOTE | 2023-01-29 08:10 | XR ---
EXAMINATION TYPE: XR chest 2V DATE OF EXAM: 01/29/2023 COMPARISON: 01/28/2023 HISTORY: Status post right lobectomy TECHNIQUE: Frontal and lateral views of the chest are obtained. FINDINGS: There is a right chest tube unchanged in position. There is volume loss in the right lung consistent with the history of lobectomy. There is no pneumothorax. There is marked subcutaneous emphysema in the soft tissues of the right hemithorax unchanged compared to previous. The left lung remains clear. The heart size is normal and the pulmonary vasculature is not congested. The osseous structures are grossly intact. IMPRESSION: 1. Postsurgical changes of right lobectomy with right sided chest tube and no pneumothorax. 2. No change in the marked subcutaneous emphysema on the right. 3. Marked volume loss in the right lung consistent with the history of lobectomy 4. Overall, no interval change compared to previous.
--- NOTE | 2023-01-29 08:15 | P.PN ---
Subjective Progress Note Date: 01/29/23 Principal diagnosis: 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. Previous medical history of hypertension, remote history of CLL, arthritis, lifetime nonsmoker, chronic hyponatremia POD #3 robotic assisted thoracoscopic right upper lobectomy with mediastinal lymph node dissection and takedown of adhesions, thoracoscopic re-resection of the bronchial stump Brief atrial fibrillation with RVR, currently sinus rhythm The patient was seen and examined this morning sitting up in a recliner on the cardiac stepdown unit in no acute distress. States pain is well controlled on current medication regimen, denies shortness of breath. Went into atrial fibrillation yesterday for a few hours, was started on amio protocol, converted to NSR yesterday evening. Remains in sinus rhythm this morning and hemodynamically stable. Currently on room air with oxygen saturation in the hi gh 90s. Right pleural chest tube present to water seal, no air leak this morning, good tidaling, 700 mL output in the last 24 hours. Labs pending, chest x-ray reviewed. Patient has been ambulatory around the hallway multiple times without difficulty. No other new concerns. Objective - Vital Signs Vital signs: Vital Signs Temp 98.4 F 01/29/23 07:35 Pulse 72 01/29/23 07:35 Resp 16 01/29/23 07:35 BP 132/86 01/29/23 07:35 Pulse Ox 97 01/29/23 07:35 FiO2 Intake & Output 01/28/23 01/29/23 01/29/23 18:59 06:59 18:59 Intake Total 600 221.116 Output Total 1125 350 Balance -525 -350 221.116 Intake: Intake, IV Titration 221.116 Amount Amiodarone 450 mg In 221.116 Dextrose 5% in Water 250 ml @ 0.5 MG/MIN 16.667 mls/hr IV .Q15H [facility] Rx#: [id number] Oral 600 Output: Chest Tube Drainage 550 150 Chest Tube Right Lateral 550 150 Chest Urine 575 200 Other: Voiding Method Urinal Urinal Urinal # Voids 1 # Bowel Movements 1 ABP, PAP, CO, CI - Last Documented Arterial Blood Pressure 110/54 - Exam CONSTITUTIONAL: Appears comfortable, cooperative, no acute distress RESPIRATORY: Lungs sounds diminished bilaterally. Respirations even, nonlabored. Currently on room air with oxygen saturation 97%. Strong cough. Able to achieve 2000 mL on incentive spirometry. CARDIOVASCULAR: S1, S2 present. Regular rate and rhythm, sinus rhythm on telemetry. Palpable peripheral pulses bilaterally. No edema present. No calf pain or tenderness noted GASTROINTESTINAL: Abdomen soft, nontender, nondistended. Active bowel sounds present 4 quadrants. Tolerating diet. Positive bowel movement 01/28 GENITOURINARY: Continues to void INTEGUMENTARY: Skin is warm and dry with evidence of good perfusion NEUROLOGIC: Cranial nerves II through XII intact MUSKULOSKELETAL: Able to move all extremities, strength equal bilaterally PSYCHIATRIC: Alert and oriented to person place and time, appropriate affect, intact judgment and insight INVASIVE LINES AND TUBES: Right pleural chest tube present to water seal, no air leak present, 150 mL serosanguineous drainage overnight, 700 mL in the last 24 hours - Labs CBC & Chem 7: 01/28/23 07:31 01/28/23 07:31 Labs: Abnormal Lab Results - Last 24 Hours (Table) 01/28/23 Range/Units 07:31 Sodium 126 L (137-145) mmol/L Chloride 95 L (98-107) mmol/L Creatinine 0.49 L (0.66-1.25) mg/dL Glucose 115 H (74-99) mg/dL - Imaging and Cardiology Chest x-ray: report reviewed, image reviewed Assessment and Plan Assessment: 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 Bronchodilators per pulmonology Will monitor daily labs and x-rays Pain control with current medication regimen Increase activity, ambulate as tolerated GI/DVT prophylaxis Continue salt tabs for hyponatremia More recommendations to follow
[2023-01-29] MEDS: IPRATROPIUM-ALBUTEROL 3 ML NEB IH SCH ×4 (08:18→20:51)
[2023-01-29 08:39] LABS: African American GFR (CKD) >90 (>60 ml/min/1.73 sqM); Anion Gap 8 mmol/L; Blood Urea Nitrogen 16 mg/dL (9-20); Calcium 8.2 mg/dL (8.4-10.2); Carbon Dioxide 26 mmol/L (22-30); Chloride 90 mmol/L (98-107); Glucose 128 mg/dL (74-99); Non-African American GFR(CKD) >90 (>60 ml/min/1.73 sqM); Potassium 4.2 mmol/L (3.5-5.1); Sodium 124 mmol/L (137-145)
[2023-01-29 08:42] LABS: HCT 30.9 % (39.0-53.0); HGB 10.3 gm/dL (13.0-17.5); MCH 31.7 pg (25.0-35.0); MCHC 33.4 g/dL (31.0-37.0); MCV 94.8 fL (80.0-100.0); Mean Platelet Volume 7.6; Platelet Count 185 k/uL (150-450); RBC 3.26 m/uL (4.30-5.90); RDW 13.2 % (11.5-15.5)
--- NOTE | 2023-01-29 11:00 | P.PN ---
Subjective Progress Note Date: 01/29/23 72-year-old male patient was referred to me initially for a lung mass. I saw the patient in my office and the patient was found to have a large right upper lobe mass measuring up to 6.3 cm in size and there was no evidence of any significant lymphadenopathy. This was an irregular mass in the anterior segment of the right upper lobe and some few small satellite nodules were also demonstrated. These were measuring up to 5 mm in size. A PET scan was also done outpatient basis that showed the right upper lobe mass that showed increased metabolic activity and there was some subtle hypermetabolic uptake in the distal esophagus at the level of the diaphragmatic hiatus. No evidence of any distant metastases. No thoracic lymphadenopathy. I performed a bronchoscopy and the patient and the right upper lobe bronchus was essentially obstructed and biopsies confirmed the presence of adenocarcinoma of the lung. PFTs were adequate. In fact, the patient a normal PFT. His comorbid conditions include hypertension. Based on that, the patient was taken to the operating room and the patient underwent a robotic-assisted thoracoscopic right upper lobectomy with mediastinal lymph node dissection and takedown of adhesions. Note that the bronchial margins came back positive and the patient underwent a thoracoscopic resection/reresection of the bronchial stump. The margins were found to be negative following the second resection. A right-sided chest tube was inserted and the patient was transferred to recovery and later on to the intensive care unit for further monitoring. His blood work shows that the risk of 16.6 with a hemoglobin of 13. His postop chest x-ray showed evidence of a right upper lobectomy and there was evidence of subcu emphysema in the right chest. Right-sided chest tube was in place and the patient had a small right apical pneumothorax. There were also some atelectatic changes in left lung base. The output from the chest with this positive air leak. On today's evaluation of 01/27/2023, the patient is sitting up on a chair is, comfortable and is currently on room air oxygen. Right-sided chest tube in place and there is persistent air leak, intermittent of the chest x-ray from today showing a 10% right apical pneumothorax. Subcutaneous emphysema is impro skyler. 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 He has chronic hyponatremia. His sodium level is at 121 today. He was started on salt tablets and fluid restrictions. The Babinski was at 17 with a hemoglobin of 12.2 and a platelet count of 196. He seems to be euvolemic at this point in time. No other significant events overnight. 01/28/2023, the patient's postop day #2. The patient is having some bloody output from the chest tube today. The output has been in the order of 500 mL over the past 24 hours. No evidence of any air leak. No evidence of any pneumothorax on today's chest x-ray. He is using the incentive spirometer. Pulling approximately 1500 on his I-S. No chest pain. His ambulating. No respiratory distress. On his chest x-ray, he continues to have some subcutaneous emphysema along the right chest wall. Pulse ox is 98% on room air oxygen. The risk of 17 point family hemoglobin 12.6. BUN is at 30 with a creatinine of 0.4. 01/29/2023, the patient is postoperative day #3. On today's evaluation, the patient right-sided chest tube was removed. Chest exit from today shows no evidence of any pneumothorax. He is using the senna spirometer. No major respiratory difficulties for now. He is on room air oxygen. No other complaints. This surgery wound over the right chest area dry clean and intact. Objective - Vital Signs Vital signs: Vital Signs Temp 98.4 F 01/29/23 07:35 Pulse 72 01/29/23 08:48 Resp 16 01/29/23 07:35 BP 132/86 01/29/23 07:35 Pulse Ox 97 01/29/23 08:37 FiO2 Intake & Output 01/28/23 01/29/23 01/29/23 18:59 06:59 18:59 Intake Total 600 331.116 Output Total 1125 350 Balance -525 -350 331.116 Intake: Intake, IV Titration 221.116 Amount Amiodarone 450 mg In 221.116 Dextrose 5% in Water 250 ml @ 0.5 MG/MIN 16.667 mls/hr IV .Q15H [facility] Rx#: [id number] Oral 600 110 Output: Chest Tube Drainage 550 150 Chest Tube Right Lateral 550 150 Chest Urine 575 200 Other: Voiding Method Urinal Urinal Urinal # Voids 1 # Bowel Movements 1 ABP, PAP, CO, CI - Last Documented Arterial Blood Pressure 110/54 - Exam CONSTITUTIONAL: Appears comfortable, cooperative, no acute distress RESPIRATORY: Lungs sounds diminished bilaterally. Respirations even, nonlabored. Currently on room air with oxygen saturation 97%. Strong cough. Able to achieve 2000 mL on incentive spirometry. CARDIOVASCULAR: S1, S2 present. Regular rate and rhythm, sinus rhythm on telemetry. Palpable peripheral pulses bilaterally. No edema present. No calf pain or tenderness noted GASTROINTESTINAL: Abdomen soft, nontender, nondistended. Active bowel sounds present 4 quadrants. Tolerating diet. Positive bowel movement 01/28 GENITOURINARY: Continues to void INTEGUMENTARY: Skin is warm and dry with evidence of good perfusion NEUROLOGIC: Cranial nerves II through XII intact MUSKULOSKELETAL: Able to move all extremities, strength equal bilaterally PSYCHIATRIC: Alert and oriented to person place and time, appropriate affect, intact judgment and insight INVASIVE LINES AND TUBES: Right pleural chest tube present to water seal, no air leak present, 150 mL serosanguineous drainage overnight, 700 mL in the last 24 hours - Labs CBC & Chem 7: 01/29/23 07:53 01/29/23 07:53 Labs: Abnormal Lab Results - Last 24 Hours (Table) 01/29/23 01/29/23 Range/Units 07:53 07:53 WBC 18.0 H (3.8-10.6) k/uL RBC 3.26 L (4.30-5.90) m/uL Hgb 10.3 L (13.0-17.5) gm/dL Hct 30.9 L (39.0-53.0) % Sodium 124 L (137-145) mmol/L Chloride 90 L (98-107) mmol/L Creatinine 0.64 L (0.66-1.25) mg/dL Glucose 128 H (74-99) mg/dL Calcium 8.2 L (8.4-10.2) mg/dL Assessment and Plan Plan: Robotic right upper lobe lobectomy with subsequent thoracoscopic evaluation and reresection of the bronchial stump due to positive margins. The patient also had extensive lymph node dissection of the mediastinum. 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
[2023-01-29] MEDS: SENNOSIDES-DOCUSATE SODIUM 1 EACH TAB PO SCH (20:22)
[2023-01-30] MEDS: HEPARIN SODIUM,PORCINE/PF 5,000 UNIT/0.5 ML SYRINGE SQ SCH ×2 (00:06→08:38)
[2023-01-30] MEDS: PANTOPRAZOLE 40 MG TABLET PO SCH (06:24)
[2023-01-30] MEDS ORDERED: IBUPROFEN 400 MG TAB PO PRN (07:11)
--- NOTE | 2023-01-30 07:59 | P.PN ---
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 Previous medical history of hypertension, remote history of CLL, arthritis, lifetime nonsmoker, chronic hyponatremia POD #4 robotic assisted thoracoscopic right upper lobectomy with mediastinal lymph node dissection and takedown of adhesions, thoracoscopic re-resection of the bronchial stump Brief atrial fibrillation with RVR, currently sinus rhythm The patient was seen and examined this morning sitting up in bed on the cardiac stepdown unit in no acute distress. States pain is well controlled on current medication regimen, denies shortness of breath. No further atrial fibrillation, remains in sinus rhythm and hemodynamically stable. Currently on room air with oxygen saturation in the high 90s. Right pleural chest tube was discontinued yesterday without incident, patient has had a lot of drainage requiring dressing reinforcement. Labs pending, chest x-ray reviewed. Patient has been ambulatory around the hallway multiple times without difficulty. No other new concerns. Objective - Vital Signs Vital signs: Vital Signs Temp 98.1 F 01/30/23 04:00 Pulse 69 01/30/23 04:00 Resp 19 01/30/23 04:00 BP 110/61 01/30/23 04:00 Pulse Ox 96 01/30/23 04:00 FiO2 Intake & Output 01/29/23 01/30/23 01/30/23 18:59 06:59 18:59 Intake Total 671.116 298 Output Total 150 1600 Balance 521.116 -1600 298 Intake: Intake, IV Titration 221.116 Amount Amiodarone 450 mg In 221.116 Dextrose 5% in Water 250 ml @ 0.5 MG/MIN 16.667 mls/hr IV .Q15H [facility] Rx#: [id number] Oral 450 298 Output: Urine 150 1600 Other: Voiding Method Urinal Urinal # Voids 2 ABP, PAP, CO, CI - Last Documented Arterial Blood Pressure 110/54 - Exam CONSTITUTIONAL: Appears comfortable, cooperative, no acute distress RESPIRATORY: Lungs sounds diminished bilaterally. Respirations even, nonlabored. Currently on room air with oxygen saturation 96%. Strong cough. Able to achieve 2000 mL on incentive spirometry. CARDIOVASCULAR: S1, S2 present. Regular rate and rhythm, sinus rhythm on telemetry. Palpable peripheral pulses bilaterally. No edema present. No calf pain or tenderness noted GASTROINTESTINAL: Abdomen soft, nontender, nondistended. Active bowel sounds present 4 quadrants. Tolerating diet. Positive bowel movement 01/28 GENITOURINARY: Continues to void, 1750 mL output in the last 24 hours INTEGUMENTARY: Skin is warm and dry NEUROLOGIC: Cranial nerves II through XII intact MUSKULOSKELETAL: Able to move all extremities, strength equal bilaterally PSYCHIATRIC: Alert and oriented to person place and time, appropriate affect, intact judgment and insight - Allied health notes Allied health notes reviewed: nursing - Labs CBC & Chem 7: 01/29/23 07:53 01/29/23 07:53 Labs: Abnormal Lab Results - Last 24 Hours (Table) 01/29/23 01/29/23 Range/Units 07:53 07:53 WBC 18.0 H (3.8-10.6) k/uL RBC 3.26 L (4.30-5.90) m/uL Hgb 10.3 L (13.0-17.5) gm/dL Hct 30.9 L (39.0-53.0) % Sodium 124 L (137-145) mmol/L Chloride 90 L (98-107) mmol/L Creatinine 0.64 L (0.66-1.25) mg/dL Glucose 128 H (74-99) mg/dL Calcium 8.2 L (8.4-10.2) mg/dL - Imaging and Cardiology Chest x-ray: image reviewed Assessment and Plan Assessment: 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, status post robotic assisted thoracoscopic right upper lobectomy with mediastinal lymph node dissection and takedown of adhesions, thoracoscopic re-resection of the bronchial stump History of hypertension Remote history of CLL, currently on active treatment Arthritis Lifetime nonsmoker, preoperative FEV1 95% of predicted, DLCO 111% of predicted Chronic hyponatremia Brief atrial fibrillation, currently sinus Plan: Chest tube dressing changed Encourage incentive spirometry use Pain control with current medication regimen Increase activity, ambulate as tolerated GI/DVT prophylaxis Continue salt tabs for hyponatremia Likely will discharge to home today
[2023-01-30] MEDS: IPRATROPIUM-ALBUTEROL 3 ML NEB IH SCH ×2 (08:16→11:33)
[2023-01-30 08:36] VITALS: BP 125/69; PULSE 82; RESP 18; TEMP 98.4
[2023-01-30] MEDS: ACETAMINOPHEN TAB 325 MG TAB PO PRN (08:38)
[2023-01-30] MEDS: AMIODARONE 200 MG TAB PO SCH (08:39)
[2023-01-30] MEDS: LOSARTAN 25 MG TAB PO SCH (08:39)
[2023-01-30] MEDS: SODIUM CHLORIDE TAB 1 GM TAB PO SCH (08:42)
[2023-01-30 08:46] LABS: HCT 29.7 % (39.0-53.0); HGB 9.8 gm/dL (13.0-17.5); MCHC 33.1 g/dL (31.0-37.0); MCV 96.7 fL (80.0-100.0); Mean Platelet Volume 7.5; Platelet Count 202 k/uL (150-450); RBC 3.07 m/uL (4.30-5.90); RDW 12.9 % (11.5-15.5); WBC 15.8 k/uL (3.8-10.6)
--- NOTE | 2023-01-30 08:51 | XR ---
EXAMINATION TYPE: XR chest 2V DATE OF EXAM: 01/30/2023 COMPARISON: 01/29/2023 TECHNIQUE: PA and lateral views submitted. HISTORY: Postsurgical FINDINGS: Diffuse emphysema within the soft tissues. Stable right apical pleural-based thickening. Tubing overl ies the right chest. Left basilar subsegmental consolidation and tiny effusion. Underlying COPD is garcia spected. Ectasia of the aorta. IMPRESSION: 1. Postsurgical changes with no sizable pneumothorax identified. Diffuse subcutaneous emphysema along the right chest wall and right apical thickening is stable.
[2023-01-30 09:05] LABS: African American GFR (CKD) >90 (>60 ml/min/1.73 sqM); Anion Gap 9 mmol/L; Blood Urea Nitrogen 10 mg/dL (9-20); Calcium 8.4 mg/dL (8.4-10.2); Carbon Dioxide 24 mmol/L (22-30); Chloride 95 mmol/L (98-107); Glucose 168 mg/dL (74-99); Non-African American GFR(CKD) >90 (>60 ml/min/1.73 sqM); Potassium 4.2 mmol/L (3.5-5.1); Sodium 128 mmol/L (137-145)
--- NOTE | 2023-01-30 10:01 | P.DS ---
Providers Date of admission: 01/26/23 09:26 Expected date of discharge: 01/30/23 Attending physician: Ryan Watson Consults: 01/26/23 16:04 Consult Physician Routine Consulting Provider: Eleni Martines Consult Reason/Comments: post lobectomy Do you want consulting provider notified?: Already Contacted Primary care physician: Luis Carlos Jerome [facility] Course: FINAL DIAGNOSIS: 1. 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 History of hypertension 3. Remote history of CLL currently not on active treatment 4. Arthritis 5. Lifetime nonsmoker, preoperative FEV1 95% of predicted, DLCO 111% of predicted 6. Chronic hyponatremia 7. Brief atrial fibrillation, currently in sinus rhythm PRINCIPAL PROCEDURE: 1. Robotic assisted thoracoscopic right upper lobectomy with mediastinal lymph node dissection and take down of adhesions 2. Thoracoscopic re-resection of the bronchial stump HISTORY OF PRESENT ILLNESS: This is a 72-year-old active gentleman who follows outpatient with Dr. Jerome for primary care, Dr. Martines for pulmonology, and Dr. Leon for oncology. Recently he had chest pain and was seen by his primary care physician who performed an EKG which was unchanged showing sinus rhythm with old lateral infarction. He was then sent for a chest x-ray which demonstrated a large mass in the right upper lobe region. CT scan confirmed presence of a 5.5 cm mass in the right upper lobe without any evidence of adenopathy. PET scan showed positive uptake in the mass without any evidence of metastasis. Bronchoscopy was performed and showed tumor in the right upper lobe at the sublobar level and biopsies were positive for adenocarcinoma consistent with lung primary. Of particular note-both the CAT scan and bronchoscopy demonstrated no evidence of central involvement of the tumor with the upper lobe bronchus, pulmonary artery branches, or pulmonary venous branches. There was considerable volume loss of the left upper lobe. The patient was referred to Dr. Watson from cardiothoracic surgery. He was considered stage IIb clinically, and there was discussion regarding possibility of adjuvant chemotherapy as well as robotic right upper lobectomy. He was recommended to undergo robotic right upper lobectomy. The usual perioperative course was discussed in detail with the patient and his family, all risks and benefits were explained, all questions were answered, and consent was obtained to proceed with surgery. The patient was scheduled for elective surgery at the earliest possible date after meeting with his oncologist to discuss adjuvant and neoadjuvant treatments. HOSPITAL COURSE: The patient was brought to the hospital on 01/26/23, taken to the preoperative area, prepared in the usual fashion, and subsequently taken to the operating room where Dr. Watson performed a robotic-assisted right upper lobectomy. Upon completion of surgery the patient was extubated and taken to the recovery room for further monitoring. He was eventually admitted to the cardiovascular intensive care unit where he was recovered and monitored hemodynamically. He was doing well on postoperative day #1 and was transferred to [facility] cardiac stepdown unit for further monitoring and rehabilitation. His oxygen was titrated down, he was tolerating oral diet, his pain was controlled without narcotics. He did develop rapid atrial fibrillation for a few hours but converted to and stayed in normal sinus rhythm for the remainder of his stay. Chest tube was discontinued on postoperative day #3, follow-up chest x-ray was stable, and he was ready to be discharged to home on postoperative day #4. He received written and verbal instruction regarding his medications, activity restrictions, signs and symptoms requiring physician notification, and follow-up appointments. Patient Condition at Discharge: Stable Plan - Discharge Summary Discharge Rx Participant: Yes New Discharge Prescriptions: New Ibuprofen [Motrin] 400 mg PO Q6HR PRN tab PRN Reason: Pain Acetaminophen Tab [Tylenol] 650 mg PO Q4HR PRN tab PRN Reason: Mild To Moderate Pain (1 - 6) Amiodarone [Cordarone] 400 mg PO BID #38 tab Sennosides-Docusate Sodium [Senokot-S] 2 each PO HS PRN tab PRN Reason: Constipation Continue Fluticasone Nasal [place] [Flonase Nasal [place]] 2 spray EA NOSTRIL DAILY PRN PRN Reason: allergies Changed Losartan Potassium 25 mg PO DAILY #0 Discharge Medication List Fluticasone Nasal [place] [Flonase Nasal [place]] 2 spray EA NOSTRIL DAILY PRN 01/24/23 [History] Acetaminophen Tab [Tylenol] 650 mg PO Q4HR PRN tab 01/30/23 [Rx] Amiodarone [Cordarone] 400 mg PO BID #38 tab 01/30/23 [Rx] Ibuprofen [Motrin] 400 mg PO Q6HR PRN tab 01/30/23 [Rx] Losartan Potassium 25 mg PO DAILY #0 01/30/23 [Rx] Sennosides-Docusate Sodium [Senokot-S] 2 each PO HS PRN tab 01/30/23 [Rx] Follow up Appointment(s)/Referral(s): Ryan Watson MD [STAFF PHYSICIAN] - 02/09/23 2:30 pm Luis Carlos Jerome MD [Primary Care Provider] - As Needed Eleni Martines MD [STAFF PHYSICIAN] - 02/23/23 9:00 am Patient Instructions/Handouts: Lung Lobectomy (DC) Activity/Diet/Wound Care/Special Instructions: DISCHARGE INSTRUCTIONS: 1. No driving for 2 weeks, or until physician gives their ok. 2. No lifting, pushing, or pulling more than 10 pounds for 2 weeks. The physician will advise of any restriction changes. 3. Continue pain control per as needed orders. Alternate acetaminophen (Tylenol) and ibuprofen (Motrin/Advil) for pain. 4. Continue with incentive spirometry and splinting until otherwise directed by the physician. 5. Leave chest tube dressing for 48 hours. After that, remove all dressings and shower daily. 6. Routine incision care. No powders, lotions, ointments on incisions. 7. Please call surgeon/STEEL LO[employer]ER for temp greater than 101 F or purulent drainage from incisions. Discharge Disposition: HOME SELF-CARE
--- NOTE | 2023-01-30 14:29 | P.PN ---
Subjective Progress Note Date: 01/30/23 Principal diagnosis: Robotic right upper lobe lobectomy with subsequent thoracoscopic evaluation and reresection of the bronchial stump due to positive margins. 72-year-old male patient was referred to me initially for a lung mass. I saw the patient in my office and the patient was found to have a large right upper lobe mass measuring up to 6.3 cm in size and there was no evidence of any significant lymphadenopathy. This was an irregular mass in the anterior segment of the right upper lobe and some few small satellite nodules were also demonstrated. These were measuring up to 5 mm in size. A PET scan was also done outpatient basis that showed the right upper lobe mass that showed increased metabolic activity and there was some subtle hypermetabolic uptake in the distal esophagus at the level of the diaphragmatic hiatus. No evidence of any distant metastases. No thoracic lymphadenopathy. I performed a bronchoscopy and the patient and the right upper lobe bronchus was essentially obstructed and biopsies confirmed the presence of adenocarcinoma of the lung. PFTs were adequate. In fact, the patient a normal PFT. His comorbid conditions include hypertension. Based on that, the patient was taken to the operating room and the patient underwent a robotic-assisted thoracoscopic right upper lobectomy with mediastinal lymph node dissection and takedown of adhesions. Note that the bronchial margins came back positive and the patient underwent a thoracoscopic resection/reresection of the bronchial stump. The margins were found to be negative following the second resection. A right-sided chest tube was inserted and the patient was transferred to recovery and later on to the intensive care unit for further monitoring. His blood work shows that the risk of 16.6 with a hemoglobin of 13. His postop chest x-ray showed evidence of a right upper lobectomy and there was evidence of subcu emphysema in the right chest. Right-sided chest tube was in place and the patient had a small right apical pneumothorax. There were also some atelectatic changes in left lung base. The output from the chest with this positive air leak. On today's evaluation of 01/27/2023, the patient is sitting up on a chair is, comfortable and is currently on room air oxygen. Right-sided chest tube in place and there is persistent air leak, intermittent of the chest x-ray from today showing a 10% right apical pneumothorax. Subcutaneous emphysema is improved. 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 He has chronic hyponatremia. His sodium level is at 121 today. He was started on salt tablets and fluid restrictions. The Babinski was at 17 with a hemoglobin of 12.2 and a platelet count of 196. He seems to be euvolemic at this point in time. No other significant events overnight. 01/28/2023, the patient's postop day #2. The patient is having some bloody output from the chest tube today. The output has been in the order of 500 mL over the past 24 hours. No evidence of any air leak. No evidence of any pneumothorax on today's chest x-ray. He is using the incentive spirometer. Pulling approximately 1500 on his I-S. No chest pain. His ambulating. No respiratory distress. On his chest x-ray, he continues to have some subcutaneous emphysema along the right chest wall. Pulse ox is 98% on room air oxygen. The risk of 17 point family hemoglobin 12.6. BUN is at 30 with a creatinine of 0.4. 01/29/2023, the patient is postoperative day #3. On today's evaluation, the patient right-sided chest tube was removed. Chest exit from today shows no evidence of any pneumothorax. He is using the senna spirometer. No major respiratory difficulties for now. He is on room air oxygen. No other complaints. This surgery wound over the right chest area dry clean and intact. Reevaluated today on 01/30/2023, patient is now postoperative day #4. Patient is doing fairly well, chest x-ray is reassuring, no evidence of pneumothorax, patient is compliant with his incentive spirometry, and the plan is to discharge the patient home today with outpatient follow-up as scheduled Objective - Vital Signs Vital signs: Vital Signs Temp 98.4 F 01/30/23 08:33 Pulse 82 01/30/23 10:24 Resp 18 01/30/23 10:24 BP 125/69 01/30/23 08:33 Pulse Ox 96 01/30/23 08:33 FiO2 Intake & Output 01/29/23 01/30/23 01/30/23 18:59 06:59 18:59 Intake Total 671.116 298 Output Total 150 1600 775 Balance 521.116 1600 -477 Intake: Intake, IV Titration 221.116 Amount Amiodarone 450 mg In 221.116 Dextrose 5% in Water 250 ml @ 0.5 MG/MIN 16.667 mls/hr IV .Q15H [facility] Rx#: [id number] Oral 450 298 Output: Urine 150 1600 775 Other: Voiding Method Urinal Urinal Urinal # Voids 2 ABP, PAP, CO, CI - Last Documented Arterial Blood Pressure 110/54 - Exam Physical Exam: Revealed a 72-year-old white male pleasant in no distress Head: Atraumatic normocephalic. HEENT:[Neck is supple.] [No neck masses.] [No thyromegaly.] [No JVD.] Chest: [Clear throughout, no crackles, no rhonchi, no wheezes.] Positive subcutaneous emphysema. Cardiac Exam: [Normal S1 and S2, no S3 gallop, no murmur.] Abdomen: [Soft, nontender, no megaly, no rebound, no guarding, normal bowel sounds.] Extremities: [No clubbing, no edema, no cyanosis.] Neurological Exam: [No focal neurologic deficit.] Psychiatric: Normal mood affect and normal mental status examination. Skin: No rashes. - Labs CBC & Chem 7: 01/30/23 07:59 01/30/23 07:59 Labs: Abnormal Lab Results - Last 24 Hours (Table) 01/30/23 01/30/23 Range/Units 07:59 07:59 WBC 15.8 H (3.8-10.6) k/uL RBC 3.07 L (4.30-5.90) m/uL Hgb 9.8 L (13.0-17.5) gm/dL Hct 29.7 L (39.0-53.0) % Sodium 128 L (137-145) mmol/L Chloride 95 L (98-107) mmol/L Creatinine 0.53 L (0.66-1.25) mg/dL Glucose 168 H (74-99) mg/dL Assessment and Plan Assessment: Impression: Status post Robotic right upper lobe lobectomy with subsequent thoracoscopic evaluation and reresection of the bronchial stump due to positive margins. Postoperative day #4 Adenocarcinoma of the lung with 6.3 cm right upper lobe mass obstructing the right upper lobe bronchus History of CLL Benign essential hypertension Hyponatremia secondary to SIADH Recommendation: Agree with discharge planning Follow-up on outpatient basis Chest x-ray today is reassuring Continue bronchodilators at home Continue fluid restrictions for his SIADH and hyponatremia Patient to follow-up with Dr. Martines post discharge to decide on the final report on his pathology, and further treatment options Time with Patient: Less than 30
== END 2023-01-30 12:05 | disposition home or self-care (01) | DRG 163 ==
LOC: 2ORMAIN 09:26 → 2SICU 15:43 → 3SCARD 01-27 22:29
PROVIDERS: ADMIT Thoracic Surgery (Cardiothoracic Vascular Surgery); ATTEND Thoracic Surgery (Cardiothoracic Vascular Surgery)
PROC: 07B74ZX Excision of Thorax Lymphatic, Percutaneous Endoscopic Approach, Diagnostic (ICD-10-PCS; 2023-01-26)
PROC: 8E0W4CZ Robotic Assisted Procedure of Trunk Region, Percutaneous Endoscopic Approach (ICD-10-PCS; 2023-01-26)
PROC: 0BTC4ZZ Resection of Right Upper Lung Lobe, Percutaneous Endoscopic Approach (ICD-10-PCS; principal; 2023-01-26 11:20)
DX: C34.11 Malignant neoplasm of upper lobe, right bronchus or lung (principal); J96.01 Acute respiratory failure with hypoxia; E22.2 Syndrome of inappropriate secretion of antidiuretic hormone; J94.8 Other specified pleural conditions; J93.9 Pneumothorax, unspecified; I10 Essential (primary) hypertension; I48.91 Unspecified atrial fibrillation; M19.90 Unspecified osteoarthritis, unspecified site; Z96.651 Presence of right artificial knee joint; Z85.6 Personal history of leukemia; Z98.42 Cataract extraction status, left eye
CPT/HCPCS: 64999; 71045; 71046; 80048; 82805; 85025; 85027; 86850; 86900; 86901; 88305; 88309; 88313; 88331; 88342; 94640; 94760

== ENCOUNTER → 2023-06-27 | Outpatient (CLI) | payer MEDICARE ==
[2023-06-27 09:45] LABS: African American GFR (CKD) >90 (>60 ml/min/1.73 sqM); Blood Urea Nitrogen 11 mg/dL (9-20); Non-African American GFR(CKD) >90 (>60 ml/min/1.73 sqM)
--- NOTE | 2023-06-27 11:32 | CT ---
EXAMINATION TYPE: CT chest w con DATE OF EXAM: 06/27/2023 COMPARISON: 12/16/2022 HISTORY: 73-year-old male C3 4.11, f/u lung CA TECHNIQUE: Contiguous axial scanning of the chest after the administration of 100 mL of Isovue 300. Coronal/sagittal reconstructions performed. CT DLP: 552mGycm. Automatic exposure control utilized for a dose reduction. FINDINGS: The heart is normal size without pericardial effusion. Scattered three-vessel coronary artery calcifi cations are present. Ectatic aortic root at 3.6 cm. Conventional vessel branching anatomy. Mildly aneurysmal descending th oracic aorta 3.1 cm. Borderline enlarged caliber main right and left pulmonary arteries up to 2.6 cm. No thoracic lymph adenopathy by CT size criteria. Postsurgical change with interval right upper lobectomy. The graft there is some peribronchovascular nodular thickening measuring 1.5 cm at the right midlung, axial image 32, possibly postsurgical steinberg e that should be reassessed at follow-up. Loculated fluid versus necrotic mass measuring 3.1 cm subpleural medial right upper lung. Former is f avored. Additional small amount of loculated pleural fluid at the apex and trace right pleural effusi on at the bases. Tiny 4 mm pulmonary nodule posterior right upper lung, axial image 15. Visualized upper abdomen shows a 2.6 cm posterior right hepatic dome cyst. Prominent calcifications w ithin the pancreatic head partially visualized. Moderate stool burden. Bones: Levoconvex scoliosis thoracolumbar junction. Accentuated thoracic kyphosis. Chronic vertebral compression deformities especially T5. Interbody ankylosis lower thoracic spine. IMPRESSION: 1. Interval right upper lobectomy. There is some 1.5 cm nodular thickening at the right midlung that could represent postsurgical change. Short interval follow-up to exclude residual disease. 2. Either loculated pleural fluid versus necrotic mass measuring 3.1 cm in the medial right upper anyi g. The former is favored. Short interval follow-up recommended. 3. Short interval follow-up also recommended to reassess the nonspecific 4 mm posterior right upper l simone pulmonary nodule. 4. Small amount of pleural fluid right apex and trace effusion at the right base.
== END | disposition home or self-care (01) ==
LOC: RADCTMAIN 08:55
PROVIDERS: ATTEND Internal Medicine Hematology & Oncology
DX: C34.11 Malignant neoplasm of upper lobe, right bronchus or lung (principal); J90 Pleural effusion, not elsewhere classified; R91.1 Solitary pulmonary nodule
CPT/HCPCS: 82565; 84520; 71260; 36415; Q9967

== ENCOUNTER → 2023-12-18 | Outpatient (CLI) | payer MEDICARE ==
[2023-12-18 11:15] LABS: African American GFR (CKD) >90 (>60 ml/min/1.73 sqM); Blood Urea Nitrogen 17 mg/dL (9-20); Non-African American GFR(CKD) >90 (>60 ml/min/1.73 sqM)
--- NOTE | 2023-12-18 12:11 | CT ---
EXAMINATION TYPE: CT chest w con CT DLP: 547 mGycm, Automated exposure control for dose reduction was used. DATE OF EXAM: 12/18/2023 11:40 AM COMPARISON: CT chest 06/27/2023 CLINICAL INDICATION:Male, 73 years old with history of C34.11 lung ca; PHH, f/u lung ca TECHNIQUE: Multiple axial images were obtained through the chest. Sagittal and coronal reformats were created for review. Contrast used:100 mL of Isovue 300 with IV Contrast (None if empty) Oral contrast used: (None if empty) FINDINGS: LUNGS/ PLEURA: The lung parenchyma appears unremarkable. AIRWAY: Patent and unremarkable. HEART: Size within normal limits. Severe coronary artery disease is present. MEDIASTINUM: No gross evidence of adenopathy. Right apical thickening/scarring appears to displace/pu ll the trachea to the right, likely postsurgical scar and unchanged compared to previous. VASCULATURE: No aortic aneurysm. MUSCULOSKELETAL: No acute osseous abnormalities SOFT TISSUES/LYMPH NODES: Unremarkable. LOWER NECK: No significant findings. UPPER ABDOMEN: No significant findings. IMPRESSION: Right upper lobectomy. Right apical thickening/scarring appears to displace/pull the trachea to the right. -- Stable postope rative findings.
== END | disposition home or self-care (01) ==
LOC: RADCTMAIN 10:29
PROVIDERS: ATTEND Internal Medicine Hematology & Oncology
DX: J98.4 Other disorders of lung (principal); C34.11 Malignant neoplasm of upper lobe, right bronchus or lung; C91.10 Chronic lymphocytic leukemia of B-cell type not having achieved remission; Z71.3 Dietary counseling and surveillance; Z90.2 Acquired absence of lung [part of]
CPT/HCPCS: 82565; 84520; 71260; 36415; Q9967

== ENCOUNTER → 2023-12-29 | Outpatient (CLI) | payer MEDICARE ==
[2023-12-29 09:19] LABS: Partial Thromboplastin Time 25.3 sec (22.0-30.0); Prothrombin Time 11.1 sec (10.0-12.5)
[2023-12-29 17:04] LABS: HCT 42.1 % (39.6-50.0); HGB 13.7 g/dL (13.0-17.0); MCH 29.1 pg (27.0-32.0); MCHC 32.5 g/dL (32.0-37.0); MCV 89.6 FL (80.0-97.0); Mean Platelet Volume 10.2 FL (9.5-12.2); NRBC Per 100 WBC 0 X 10*3/uL (0.00-0.01); Platelet Count 276 X 10*3/uL (140-440); RDW 14.8 % (11.5-14.5); WBC 14.12 X 10*3/uL (4.50-10.00)
[2023-12-29 17:21] LABS: ALT 37 U/L (10-49); AST 34 U/L (14-35); Albumin 4.5 g/dL (3.8-4.9); Albumin/Globulin Ratio 1.96 Ratio (1.60-3.17); Alkaline Phosphatase 115 U/L (41-126); BUN/Creat Ratio 23.17 Ratio (12.00-20.00); Blood Urea Nitrogen 13.9 mg/dL (9.0-27.0); Calcium 9.5 mg/dL (8.7-10.3); Chloride 92 mmol/L (96-109); Globulin 2.3 g/dL (1.6-3.3); Glucose 112 mg/dL (70-110); Potassium 4.5 mmol/L (3.5-5.5); Sodium 127 mmol/L (135-145); Total Bilirubin 0.9 mg/dL (0.3-1.2); Total Protein 6.8 g/dL (6.2-8.2)
== END | disposition home or self-care (01) ==
LOC: LABWHC1 08:45
PROVIDERS: ATTEND Orthopaedic Surgery
DX: Z01.818 Encounter for other preprocedural examination (principal); I44.0 Atrioventricular block, first degree; M16.12 Unilateral primary osteoarthritis, left hip; R94.31 Abnormal electrocardiogram [ECG] [EKG]; Z22.322 Carrier or suspected carrier of Methicillin resistant Staphylococcus aureus
CPT/HCPCS: 36415; 80053; 85027; 85610; 85730; 86850; 86900; 86901; 87070; 93005

== ENCOUNTER → 2024-01-11 | Outpatient (CLI) | payer MEDICARE ==
[2024-01-11 11:23] LABS: Partial Thromboplastin Time 25.1 sec (22.0-30.0); Prothrombin Time 11.1 sec (10.0-12.5)
[2024-01-11 14:38] LABS: HGB 13.8 g/dL (13.0-17.0); MCH 29.7 pg (27.0-32.0); MCHC 33.7 g/dL (32.0-37.0); MCV 88.4 FL (80.0-97.0); Mean Platelet Volume 9.9 FL (9.5-12.2); NRBC Per 100 WBC 0 X 10*3/uL (0.00-0.01); Platelet Count 261 X 10*3/uL (140-440); RBC 4.64 X 10*6/uL (4.40-5.60); RDW 14.3 % (11.5-14.5); WBC 12.85 X 10*3/uL (4.50-10.00)
[2024-01-11 14:56] LABS: ALT 33 U/L (10-49); AST 32 U/L (14-35); Albumin 4.4 g/dL (3.8-4.9); Alkaline Phosphatase 107 U/L (41-126); Blood Urea Nitrogen 12.6 mg/dL (9.0-27.0); Calcium 9.3 mg/dL (8.7-10.3); Carbon Dioxide 23.8 mmol/L (21.6-31.8); Chloride 95 mmol/L (96-109); Globulin 2.2 g/dL (1.6-3.3); Glucose 100 mg/dL (70-110); Potassium 4.4 mmol/L (3.5-5.5); Sodium 129 mmol/L (135-145); Total Bilirubin 0.8 mg/dL (0.3-1.2); Total Protein 6.6 g/dL (6.2-8.2)
== END | disposition home or self-care (01) ==
LOC: LABPAT 10:37
PROVIDERS: ATTEND Orthopaedic Surgery
DX: Z01.818 Encounter for other preprocedural examination (principal)
CPT/HCPCS: 36415; 80053; 85027; 85610; 85730; 87070

== ENCOUNTER → 2024-01-12 | Outpatient (CLI) | payer MEDICARE ==
--- NOTE | 2024-01-19 22:33 | P.PCN ---
Date of Procedure: 02/11/24 Operative Findings: Home sleep study testing Date of service is 01/12/2024 Pertinent history this is a 73-year-old male patient with pulm adenocarcinoma underwent a right upper lobe resection and a postop diagnosis was consistent with stage III disease and the patient completed adjuvant chemotherapy. Most recent follow-up CAT scan of the chest on 12/17/2023 showed no evidence of any recurrent disease. He has coronary artery disease, compression fracture of the vertebral spine along with previous history of CLL and hypertension. During his last office evaluation, the patient was also complaining of snoring and hypersomnia sleepiness and based on that, home sleep study was ordered Pertinent physical findings the patient's height is 5 feet and 10 inches, weight is 179 and a body mass index is 25.7 Technical description The patient underwent a home sleep study. This is a type III home sleep study evaluation. The [facility] system was used to complete the study. The total recording duration was 8 hours and 12 minutes. The study started at 9:20 PM and ended at 5:33 AM. There was a total of 7 hours and 59 minutes of flow monitoring and 8 hours of oxygen saturation monitoring. Results Respiratory analysis showed a total of 258 obstructive apneas and 49 obstructive hypopneas. The resulting AHI was 38.4 consistent with severe obstructive sleep apnea Oxygenation analysis The patient had a baseline pulse ox of 97%, average pulse ox was 95% during sleep with a minimum pulse ox of 85% and the patient spent only 1 minute of sleep time below pulse ox of 89%. Cardiac summary Average heart rate was 9557 with a minimum heart rate of 47 and a maximum rate of 82. Assessment Severe PABLO with an AHI of 38.4 Hypertension stage III pulm adenocarcinoma with a previous right upper lobe resection followed by systemic chemotherapy CLL Plan We discussed findings with the patient. Obviously, the patient's disease is severe. He has severe obstructive sleep apnea with elevated AHI. He will benefit from CPAP therapy. If you are able to, the patient is going to come into the sleep center to undergo a CPAP titration. Continue to follow.
== END | disposition home or self-care (01) ==
LOC: LABWHC1 13:43
PROVIDERS: ATTEND Orthopaedic Surgery
DX: Z01.812 Encounter for preprocedural laboratory examination (principal); C91.10 Chronic lymphocytic leukemia of B-cell type not having achieved remission; I10 Essential (primary) hypertension; G47.33 Obstructive sleep apnea (adult) (pediatric); M16.12 Unilateral primary osteoarthritis, left hip
CPT/HCPCS: 86850; 86900; 86901

== ENCOUNTER → 2024-01-12 | Outpatient (CLI) | payer MEDICARE ==
--- NOTE | 2024-02-07 16:25 | P.PCN ---
Date of Procedure: 02/11/24 Operative Findings: Home sleep study testing Date of service is 01/12/2024 Pertinent history this is a 73-year-old male patient with pulm adenocarcinoma underwent a right upper lobe resection and a postop diagnosis was consistent with stage III disease and the patient completed adjuvant chemotherapy. Most recent follow-up CAT scan of the chest on 12/17/2023 showed no evidence of any recurrent disease. He has coronary artery disease, compression fracture of the vertebral spine along with previous history of CLL and hypertension. During his last office evaluation, the patient was also complaining of snoring and hypersomnia sleepiness and based on that, home sleep study was ordered Pertinent physical findings the patient's height is 5 feet and 10 inches, weight is 179 and a body mass index is 25.7 Technical description The patient underwent a home sleep study. This is a type III home sleep study evaluation. The [employer] system was used to complete the study. The total recording duration was 8 hours and 12 minutes. The study started at 9:20 PM and ended at 5:33 AM. There was a total of 7 hours and 59 minutes of flow monitoring and 8 hours of oxygen saturation monitoring. Results Respiratory analysis showed a total of 258 obstructive apneas and 49 obstructive hypopneas. The resulting AHI was 38.4 consistent with severe obstructive sleep apnea Oxygenation analysis The patient had a baseline pulse ox of 97%, average pulse ox was 95% during sleep with a minimum pulse ox of 85% and the patient spent only 1 minute of sleep time below pulse ox of 89%. Cardiac summary Average heart rate was 9557 with a minimum heart rate of 47 and a maximum rate of 82. Assessment Severe PABLO with an AHI of 38.4 Hypertension stage III pulm adenocarcinoma with a previous right upper lobe resection followed by systemic chemotherapy CLL Plan We discussed findings with the patient. Obviously, the patient's disease is severe. He has severe obstructive sleep apnea with elevated AHI. He will benefit from CPAP therapy. If you are able to, the patient is going to come into the sleep center to undergo a CPAP titration. Continue to follow.
== END ==
LOC: 3 N SLEEP 13:34
PROVIDERS: ATTEND Internal Medicine Critical Care Medicine
DX: G47.33 Obstructive sleep apnea (adult) (pediatric) (principal); I10 Essential (primary) hypertension; C34.91 Malignant neoplasm of unspecified part of right bronchus or lung; C91.10 Chronic lymphocytic leukemia of B-cell type not having achieved remission; J90 Pleural effusion, not elsewhere classified; I25.84 Coronary atherosclerosis due to calcified coronary lesion; M48.54XA Collapsed vertebra, not elsewhere classified, thoracic region, initial encounter for fracture; Z92.21 Personal history of antineoplastic chemotherapy; Z98.890 Other specified postprocedural states; Z79.899 Other long term (current) drug therapy

== ENCOUNTER 2024-01-23 09:30 | Day surgery (SDC) | payer MEDICARE ==
[~2024-01-23 09:30] MED LIST changes: -DEXAMETHASONE SOD PHOSPHATE 4 MG/ML 1 ML VIAL IV ONE; -LACTATED RINGERS 1,000 ML IV SCH; -ONDANSETRON 4 MG/2 ML VIAL IVP ONE; +TRANEXAMIC 1,000 MG/100ML-NACL 1,000 MG in SALINE 1 100ML.BAG IVPB PRN
[2024-01-23] MEDS: MELOXICAM 7.5 MG TAB PO PRN (10:22)
[2024-01-23] MEDS: GABAPENTIN 300 MG CAP PO PRN (10:22)
[2024-01-23] MEDS: LACTATED RINGERS 1,000 ML IV SCH (10:22)
[2024-01-23] MEDS: DEXAMETHASONE SOD PHOSPHATE 4 MG/ML 1 ML VIAL IV ONE (10:23)
[2024-01-23] MEDS: ACETAMINOPHEN TAB 500 MG TAB PO PRN (10:23)
[2024-01-23] MEDS: ONDANSETRON 4 MG/2 ML VIAL IVP ONE (10:23)
[2024-01-23] MEDS: FAMOTIDINE 20 MG/2 ML VIAL IV STA (10:24)
[2024-01-23] MEDS: IV FLUID CONTINUATION 1,000 ML IV ONE ×2 (10:30→14:45)
[2024-01-23] MEDS: MIDAZOLAM 2 MG/2 ML VIAL IV PRN (10:38)
--- NOTE | 2024-01-23 10:46 | P.ANPRN ---
Procedure Note - Anesthesia - Nerve Block Performed Left Juan Luis Single Time Out Performed: Yes Date of Procedure: 01/23/24 Procedure Start Time: 10:38 Procedure Stop Time: 10:43 Location of Patient: PreOp Indication: Acute Post-Operative Pain, Analgesia, Requested by Surgeon Sedation Type: Sedate with meaningful contact maintained Preparation: Sterile Prep Position: Supine Catheter: None Needle Types: Pajunk Needle Gauge: 21 Ultrasound used to visualize needle placement: Yes Ultrasound used to observe medication spread: Yes Injectate: 0.5% Ropivacaine (see comment for volume) (Ropiv 20ml+[id number]) Blood Aspirated: No Pain Paresthesia on Injection Noted: No Resistance on Injection: Normal Image Stored and Saved: Yes Events: Uneventful and Well Tolerated
[2024-01-23] MEDS: METOCLOPRAMIDE 5 MG/ML 2 ML VIAL IVP STA (10:48)
[2024-01-23] MEDS ORDERED: DEXAMETHASONE SOD PHOSPHATE 4 MG/ML 1 ML VIAL ONE (11:32)
[2024-01-23] MEDS ORDERED: MIDAZOLAM 2 MG/2 ML VIAL ONE (11:32)
[2024-01-23] MEDS ORDERED: TRANEXAMIC 1,000 MG/100ML-NACL PREMIX BAG ONE (11:32)
[2024-01-23] MEDS ORDERED: fentaNYL (PF) 50 MCG/ML 2 ML AMP ONE (11:32)
[2024-01-23] MEDS ORDERED: ePHEDrine 50 MG/ML 1 ML VIAL ONE (11:32)
[2024-01-23] MEDS ORDERED: ROPIVACAINE 5 MG/ML 30 ML VIAL ONE (11:32)
[2024-01-23] MEDS ORDERED: PROPOFOL 10 MG/ML 20 ML VIAL IV ONE (11:32)
[2024-01-23] MEDS ORDERED: HYDROmorphone 0.5 MG/0.5 ML SYRINGE IVP PRN ×3 (11:35)
[2024-01-23] MEDS ORDERED: NALOXONE 0.4 MG/ML 1 ML VIAL IV PRN (11:35)
[2024-01-23] MEDS ORDERED: ONDANSETRON 4 MG/2 ML VIAL IVP PRN (11:35)
[2024-01-23] MEDS ORDERED: MAGNESIUM HYDROXIDE 2,400 MG/30 ML CUP PO PRN (11:35)
[2024-01-23] MEDS: ceFAZolin 1,000 MG in SODIUM CHLORIDE 0.9% 1,000 ML IRRIGATION ONE (11:36)
[2024-01-23] MEDS ORDERED: HYDROcodone/APAP 7.5-325MG 1 EACH TAB PO PRN (11:37)
[2024-01-23] MEDS: ROPIVACAINE 5 MG/ML 30 ML VIAL MISCELLANE ONE ×2 (11:45→12:51)
[2024-01-23] MEDS: LACTATED RINGERS 1,000 ML IV ONE (12:43)
--- NOTE | 2024-01-23 13:01 | P.OP ---
Date of Procedure: 01/23/24 Preoperative Diagnosis: Severe osteoarthritis left hip Postoperative Diagnosis: Severe osteoarthritis left hip Procedure(s) Performed: Left total hip arthroplasty with a direct anterior approach Implants: [employer] Polarstem standard size 8 with a collar [employer] R3, 3 hole hemispherical acetabular shell, 60 mm [employer] Reflection 6.5 mm cancellus screw, 20 mm 2 [employer] R3, XLPE 20 acetabular liner [employer] Oxinium femoral head 36 mm, +4 All components were press-fit. The articulation is Oxinium on polyethylene. Anesthesia: spinal Surgeon: Eitan [employer] Truck Driver #1: Ping Templeton Estimated Blood Loss (ml): 450 Pathology: none sent Condition: stable Disposition: PACU Indications for Procedure: After failure of conservative treatment we discussed the surgical and nonsurgi zari treatment options at length. Patient wishes to proceed with a total hip arthroplasty with a direct anterior approach. Complications specific to this procedure were discussed at length, including but not limited to infection, leg length discrepancy, dislocation, nerve injury, and fracture. Covid-19 was also discussed at length with the patient, and they are aware of the current policies and procedures. The patient was given the option of delaying surgery, but they elect to proceed knowing these risks. Patient is aware of all these complications and informed consent was obtained Operative Findings: The operative findings are consistent with severe osteoarthritis the left hip Description of Procedure: The patient was seen and evaluated in the preoperative area and the consent was reviewed. The operative site was marked with a skin marker. The patient verified the procedure and operative site. A TOMMY block was placed by anesthesia in the preoperative area. The patient was then brought to the operating room and given preoperative antibiotics intravenously. 1 g of Tranexamic acid was also given intravenously. A spinal anesthetic was administered by the anesthesia department. The patient was then placed on the [place] table with the bony prominences well-padded. The hip area was then prepped with a ChloraPrep solution and draped in the usual sterile fashion. A universal timeout was then performed, which confirmed the patient's name, surgical site, ALLERGIES, and procedure being performed on the consent. Next the incision site was located at 1 cm distal and 4 cm lateral to the anterior superior iliac spine. The skin and subcutaneous tissues were sharply incised. Incision was carefully dissected down to the fascia overlying the tensor fascia neri muscle. This fascia was then incised in line with the muscle fibers. Care was taken to stay laterally in order to avoid injuring the lateral femoral cutan eous nerve. Next, using blunt finger dissection, the tensor fascia neri muscle was dissected off its investing fascia. The muscle was then carefully retracted laterally with a cobra retractor over the lateral neck of the femur. Next, the circumflex vessels were identified and cauterized using the Aquamantis device. The anterior hip capsule was then exposed. The capsule was then opened and an inverted T fashion. The retractors were then placed intracapsularly. The retractors were maintained intracapsular throughout the procedure. The proximal femur was then visualized. Fluoroscopic x-rays were then taken in order to evaluate the preoperative leg lengths. A small amount of traction was placed on the leg. The femoral neck was then osteotomized at the appropriate level above the lesser trochanter. A small wedge of bone was then removed from the remaining femoral head. Next, using a corkscrew the femoral head was removed from the acetabulum. On gross visual inspection, the femoral head had complete loss of articular cartilage and multiple periarticular osteophytes. The femoral head was then measured. Attention was then turned to the acetabulum. The acetabulum was exposed and any remaining labrum was excised. Sequential reaming of the acetabulum was performed using fluoroscopic guidance until there was a good bed of bleeding cancellus bone. When the appropriate size was reached, a trial was then placed. The position and fit of the trial was checked with fluoroscopy. The trial was then removed. Then, using fluoroscopic guidance, the final implant was impacted at 20 of anteversion and 40 of abduction, and fully seated in the acetabulum. 2 screws were then placed in the acetabulum. Again fluoroscopy was used to check position of the screws. Next, the liner was then impacted, with a 20 elevated liner located in the anterior superior quadrant. Component locking was confirmed. Attention was then directed to the femur. With the aid of the [place] table, the femur was externally rotated to approximately 130, extended, and adducted under the opposite leg. A side hook was then placed under the proximal femur, and the side hook elevator was used to elevate the proximal femur while releasing the capsule. Retractors were then placed. A capsular release was performed, as well as a release of the conjoined tendon, which afforded excellent visualiz ation of the proximal femur. Next, a box osteotome was used to lateralize the proximal femur. A handicraft or hobby shop manager was then used to locate the femoral canal. Sequential broaching was then performed with appropriate size which afforded excellent fixation in the proximal femur. A trial was then placed with appropriate head and neck, and the hip was gently reduced with the aid of the [place] table. Fluoroscopy was then used to check position of the components, as well as to evaluate the leg lengths and offset. The leg lengths and offset were measured as closely as possible to ensure stability of the hip. The hip was then gently dislocated and the trials were then removed. Final implants were then impacted and the hip was again reduced. Final fluoroscopic x-rays confirmed that the components were in anatomic position. The leg lengths and offset were measured and were found to coincide with the trial measurements. The hip was also taken through range of motion, and found to be stable. The hip was then copiously irrigated with antibiotic solution with pulsatile lavage. The hip was then irrigated with Irrisept solution. The soft tissues were then injected with a ropivacaine solution. A second dose of 1 g of Tranexamic acid was also given intravenously. The fascia was then closed with 2-0 strata fix suture. The subcutaneous tissue was closed with 3-0 Vicryl. The subcuticular tissue was closed with 3-0 strata fix suture. The skin was then closed with Exofin skin glue. After the glue and dried, and Optifoam silver impregnated dressing was applied. The patient was then transferred to the recovery room in stable condition. The electrician station assistant ANGELINE Nettles was required due to the complexity of surgery, and the need for skilled mortgage loan assistant for positioning, draping, exposure, retraction, and closure of the wound.
--- NOTE | 2024-01-23 13:30 | FL ---
EXAMINATION TYPE: FL guidance operating room, XR Hip Limited LT Intraoperative/procedural fluoroscopi c services were provided. Total fluoroscopy time is 34 seconds with a total of 3 submitted images to PACS. Please see the operative/procedural note for further details. DAP: 1.4254 Gycm2
--- NOTE | 2024-01-23 15:51 | XR ---
EXAMINATION TYPE: XR Hip Limited LT DATE OF EXAM: 01/23/2024 3:36 PM CLINICAL INDICATION:Male, 73 years old with history of Status post hip surgery, assess surgical align ment; PHH COMPARISON: None. TECHNIQUE: XR Hip Limited LT; hip was examined in the frontal projections FINDINGS: Post arthroplasty changes, hardware is intact, alignment is appropriate. No evidence of fra cture. Postoperative changes of the soft tissues with subcutaneous gas. No evidence of any acute osse ous pathology or joint dislocation. IMPRESSION: Hip arthroplasty with hardware intact and in appropriate alignment. No acute fracture.
[2024-01-23] MEDS: SODIUM CHLORIDE 0.9% 1,000 ML IV SCH (16:17)
[2024-01-23] MEDS: HYDROcodone/APAP 7.5-325MG 1 EACH TAB PO PRN (18:01)
[2024-01-23] MEDS: ASPIRIN 325 MG TAB PO SCH (19:48)
[2024-01-23] MEDS: SENNOSIDES-DOCUSATE SODIUM 1 EACH TAB PO SCH (19:48)
--- NOTE | 2024-01-23 23:36 | P.CONS ---
History of Present Illness - Reason for Consult Consult date: 01/23/24 - Chief Complaint Left hip total arthroplasty - History of Present Illness Patient is a 73-year-old male with a known history of hypertension, adenocarcinoma of the lung status post right lower lobe resection in January 2023, CLL diagnosed in 2018 being monitored was admitted to the hospital for elective left total hip arthroplasty. Postoperative day 0. Patient is complaining of left hip pain and is requesting pain medications. Currently pain is at 5 out of 10. No complaints of chest pain or shortness of breath. No nausea vomiting or abdominal pain or diarrhea. Denies any dizziness or lightheadedness. Postoperative hip x-ray showed hip arthroplasty with hardware intact and in appropriate alignment no acute fracture. Laboratory data is not available at this time. Blood pressure was 160/85 this morning. Pulse 70 respiration 18 pulse ox 97% on room air. Review of Systems Constitutional: Patient denies any fever or chills . No generalized weakness or weight loss. Abdomen: Patient denied nausea vomiting and diarrhea and abdominal pain. Cardiovascular: Patient denies any chest pain or short of breath no palpitations. Respiratory: patient denied any cough or sputum production. No shortness of breath Neurologic: Patient denied any numbness or tingling. no headache. Musculoskeletal: Patient denies any complaints of joint swelling or deformity. Left hip pain. Skin: Negative Psychiatric: Negative Endocrine: No heat or cold intolerance. No recent weight gain. Genitourinary: No dysuria or hematuria. All other 14 point ROS negative except the above Past Medical History Past Medical History: Cancer, Hypertension Additional Past Medical History / Comment(s): Pulmonary adenocarcinoma. CLL-2019-no tx yet, just being monitored History of Any Multi-Drug Resistant Organisms: None Reported Past Surgical History: Hernia Repair, Joint Replacement Additional Past Surgical History / Comment(s): LEFT CATARACT SURGERY WITH IMPLANTS, HERNIA X2, total right knee, COLONOSCOPY, RUL resection 01/2023, Total left hip Past Anesthesia/Blood Transfusion Reactions: No Reported Reaction Additional Past Anesthesia/Blood Transfusion Reaction / Comm: had hiccups intermittently for a few weeks after carpal tunnel surg. Past Psychological History: No Psychological Hx Reported Smoking Status: Never smoker Past Alcohol Use History: None Reported Past Drug Use History: None Reported - Past Family History Father Family Medical History: Cancer Mother Family Medical History: Cancer Medications and Allergies Home Medications Medication Instructions Recorded Confirmed Type Fluticasone Nasal [place] [Flonase 2 spray EA NOSTRIL DAILY PRN 01/24/23 01/23/24 History Nasal [place]] Acetaminophen [Acetaminophen 8 hr] 650 mg PO Q8H PRN 01/03/24 01/23/24 History L.acidoph,Paracasei, B.lactis 1 each PO DAILY 01/03/24 01/23/24 History [Probiotic] Losartan Potassium 25 mg PO QAM 01/03/24 01/23/24 History polyethylene glycoL 3350 [Clearlax] 1 packet PO DAILY PRN 01/03/24 01/23/24 History Aspirin [Children's Aspirin] 81 mg PO DAILY 01/16/24 01/23/24 History Atorvastatin [Lipitor] 10 mg PO DAILY 01/16/24 01/23/24 History Aspirin 325 mg PO BID #60 tab 01/23/24 Rx HYDROcodone/APAP 7.5-325MG [[place] 1 - 2 tab PO Q6H PRN #32 tab 01/23/24 Rx 7.5-325] Sennosides [Senokot] 2 tab PO DAILY PRN #60 tablet 01/23/24 Rx Allergies Allergy/AdvReac Type Severity Reaction Status Date / Time No Known Allergies Allergy Verified 01/23/24 10:03 Physical Exam Vitals: Vital Signs Temp Pulse Pulse Resp BP BP Pulse Ox 01/23/24 19:50 97.6 F 82 18 135/86 95 01/23/24 16:23 97.3 F L 87 18 141/83 91 L 01/23/24 15:23 72 16 134/74 97 01/23/24 14:53 76 16 117/74 97 01/23/24 14:23 75 16 131/64 96 01/23/24 14:08 77 16 119/62 98 01/23/24 13:50 82 16 110/61 97 01/23/24 13:35 78 16 109/62 97 01/23/24 13:20 98 F 78 16 120/74 100 01/23/24 10:49 67 18 135/70 99 01/23/24 09:56 97.0 F L 70 18 160/85 97 Intake and Output 01/23/24 01/23/24 01/23/24 06:59 14:59 22:59 Intake Total 3150 Output Total 450 Balance 2700 Intake: IV 3150 Output: Estimated Blood Loss 450 Other: # Voids 1 Weight 79.6 kg 79.6 kg PHYSICAL EXAMINATION: Patient is lying in the bed comfortably, no acute distress, awake alert and oriented.. HEENT: Normocephalic. Neck is supple. Pupils reactive. Nostrils clear. Oral cavity is moist. Neck reveals no JVD, carotid bruits, or thyromegaly. CHEST EXAMINATION: Trachea is central. Symmetrical expansion. Lung ritter clear to auscultation and percussion. CARDIAC: Normal S1, S2 with no gallops. No murmurs ABDOMEN: Soft. Bowel sounds normal. No organomegaly. No abdominal bruits. Extremities: reveal no edema. No clubbing or cyanosis. Left hip surgical site intact. Neurologically awake, alert, oriented x3 with well-coordinated movements. No focal deficits noted Skin: No rash or skin lesions. Psychiatric: Coperative. Nonsuicidal Musculoskeletal: No joint swelling or deformity. Assessment and Plan Assessment: Left total hip arthroplasty postoperative day 0 Hypertension fairly controlled Hyperlipidemia Adenocarcinoma of the lung status post RUL resection in January 2023 CLL diagnosed in 2019 currently being monitored GI and DVT prophylaxis as per primary team Plan: Patient will be continued on current pain medications, bowel regimen and encourage incentive spirometry. Start back on blood pressure medications losartan and titrate dose as needed. Continue with other home medications. Patient is currently on aspirin twice daily for DVT prophylaxis. Follow-up CBC and BMP tomorrow. Further recommendations based on the clinical course. Thank you kindly for your consult. Time with Patient: Greater than 30
[2024-01-24 08:34] VITALS: BP 131/77; PULSE 75; RESP 16; TEMP 97.7
[2024-01-24 08:48] LABS: HCT 36.8 % (39.6-50.0); HGB 12.4 g/dL (13.0-17.0); MCH 29.5 pg (27.0-32.0); MCHC 33.7 g/dL (32.0-37.0); MCV 87.4 FL (80.0-97.0); Mean Platelet Volume 10.2 FL (9.5-12.2); NRBC Per 100 WBC 0 X 10*3/uL (0.00-0.01); Platelet Count 215 X 10*3/uL (140-440); RBC 4.21 X 10*6/uL (4.40-5.60); RDW 13.7 % (11.5-14.5); WBC 23.43 X 10*3/uL (4.50-10.00)
[2024-01-24] MEDS ORDERED: polyethylene glycoL 3350 17 GM POWD.PACK PO PRN (09:00)
[2024-01-24] MEDS ORDERED: FLUTICASONE NASAL 50MCG/SPRAY 16GM BTL EA NOSTRIL PRN (09:00)
[2024-01-24] MEDS ORDERED: ASPIRIN 81 MG PO SCH (09:00)
[2024-01-24] MEDS: ATORVASTATIN 10 MG TAB PO SCH (09:16)
[2024-01-24] MEDS: LOSARTAN 25 MG TAB PO SCH (09:17)
--- NOTE | 2024-01-24 10:03 | P.DS ---
Providers Expected date of discharge: 01/24/24 Attending physician: Eitan Max Consults: 01/23/24 16:25 Consult Physician Routine Consulting Provider: Harish Dasilva Consult Reason/Comments: Medical Management Do you want consulting provider notified?: Yes Primary care physician: Luis Carlos Jerome - Discharge Diagnosis(es) (1) Osteoarthritis of left hip Current Visit: Yes Status: Acute (2) S/P total hip arthroplasty Current Visit: Yes Status: Acute Hospital Course: This is a 73-year-old male with known history of degenerative arthritis of the left hip. The patient presented for evaluation as an outpatient. After discussion and consideration patient elects to proceed with total hip arthroplasty. The patient is seen preoperatively by Dr. Max and medically cleared for surgery by their primary care physician. Patient is admitted to [facility] on 01/23/2024 for total hip arthroplasty. The procedure is performed without complication or sequelae. The patient is doing well postoperatively. Labs and vital signs are stable on day of discharge. On day of discharge patient's hip incision is healing well. There is minimal erythema. There is no drainage noted at this time. There is minimal soft tissue swelling to the hip and thigh. Patient has full foot and ankle motion without difficulty or pain. Calf is soft and nontender to palpation. Neurovascular status to the left lower extremity is intact. Patient is discharged home in good condition. Please see med rec for accurate list of home medications. Plan - Discharge Summary Discharge Rx Participant: Yes New Discharge Prescriptions: New Aspirin 325 mg PO BID #60 tab HYDROcodone/APAP 7.5-325MG [[place] 7.5-325] 1 - 2 tab PO Q6H PRN #32 tab PRN Reason: Pain Sennosides [Senokot] 2 tab PO DAILY PRN #60 tablet PRN Reason: Constipation Cyclobenzaprine [Flexeril] 10 mg PO TID #30 tablet No Action Losartan Potassium 25 mg PO QAM Atorvastatin [Lipitor] 10 mg PO DAILY Aspirin [Children's Aspirin] 81 mg PO DAILY Fluticasone Nasal [place] [Flonase Nasal [place]] 2 spray EA NOSTRIL DAILY PRN PRN Reason: allergies polyethylene glycoL 3350 [Clearlax] 1 packet PO DAILY PRN PRN Reason: Constipation L.acidoph,Paracasei, B.lactis [Probiotic] 1 each PO DAILY Acetaminophen [Acetaminophen 8 hr] 650 mg PO Q8H PRN PRN Reason: Pain Discharge Medication List Fluticasone Nasal [place] [Flonase Nasal [place]] 2 spray EA NOSTRIL DAILY PRN 01/24/23 [History] Acetaminophen [Acetaminophen 8 hr] 650 mg PO Q8H PRN 01/03/24 [History] L.acidoph,Paracasei, B.lactis [Probiotic] 1 each PO DAILY 01/03/24 [History] Losartan Potassium 25 mg PO QAM 01/03/24 [History] polyethylene glycoL 3350 [[place]] 1 packet PO DAILY PRN 01/03/24 [History] Aspirin [Children's Aspirin] 81 mg PO DAILY 01/16/24 [History] Atorvastatin [Lipitor] 10 mg PO DAILY 01/16/24 [History] Aspirin 325 mg PO BID #60 tab 01/23/24 [Rx] HYDROcodone/APAP 7.5-325MG [[place] 7.5-325] 1 - 2 tab PO Q6H PRN #32 tab 01/23/24 [Rx] Sennosides [Senokot] 2 tab PO DAILY PRN #60 tablet 01/23/24 [Rx] Cyclobenzaprine [Flexeril] 10 mg PO TID #30 tablet 01/24/24 [Rx] Follow up Appointment(s)/Referral(s): Eitan Max DO [Doctor of Osteopathic Medicine] - 2 Weeks Activity/Diet/Wound Care/Special Instructions: Weightbearing as tolerated with walker. Leave dressing intact. Dressing may be removed by home care nurse or by patient in 7 days. Then change dressing twice daily until follow up. May shower with initial dressing intact and after removal. If dressing become saturated, please remove. Please take aspirin 325mg twice daily for 30 days to prevent blood clots. Recommend use of compression stockings daily until follow up to help prevent swelling and blood clots. May remove at night before sleeping. Please follow-up with [facility] in 2 weeks and call with any questions or concerns, . Discharge Disposition: HOME WITH HOME HEALTH SERVICES
[2024-01-24] MEDS: CYCLOBENZAPRINE 10 MG TAB PO PRN (10:33)
[2024-01-24 11:47] LABS: Basophils # (M) 0 X 10*3/uL (0.00-0.10); Eosinophils # (M) 0.23 X 10*3/uL (0.04-0.35); Lymphocytes # (M) 11.72 X 10*3/uL (0.90-5.00); Monocytes # (M) 0.94 X 10*3/uL (0.20-1.00); Neutrophils # (M) 10.54 X 10*3/uL (1.80-7.70); Neutrophils % (M) 45 %
[2024-01-24 14:54] LABS: BUN/Creat Ratio 19.17 Ratio (12.00-20.00); Blood Urea Nitrogen 11.5 mg/dL (9.0-27.0); Calcium 8.8 mg/dL (8.7-10.3); Carbon Dioxide 12.7 mmol/L (21.6-31.8); Chloride 96 mmol/L (96-109); Glucose 117 mg/dL (70-110); Potassium 4.8 mmol/L (3.5-5.5); Sodium 130 mmol/L (135-145)
--- NOTE | 2024-01-25 10:44 | P.PN ---
Subjective Progress Note Date: 01/24/24 - Reason for Consult Consult date: 01/23/24 - Chief Complaint Left hip total arthroplasty - History of Present Illness Patient is a 73-year-old male with a known history of hypertension, adenocarcinoma of the lung status post right lower lobe resection in January 2023, CLL diagnosed in 2019 being monitored was admitted to the hospital for elective left total hip arthroplasty. Postoperative day 0. Patient is complaining of left hip pain and is requesting pain medications. Currently pain is at 5 out of 10. No complaints of chest pain or shortness of breath. No nausea vomiting or abdominal pain or diarrhea. Denies any dizziness or lightheadedness. Postoperative hip x-ray showed hip arthroplasty with hardware intact and in appropriate alignment no acute fracture. Laboratory data is not available at this time. Blood pressure was 160/85 this morning. Pulse 70 respiration 18 pulse ox 97% on room air. 01/24/2024 Patient is seen in follow-up this morning status post left total hip arthroplasty. Patient reports to feeling well and is awaiting discharge. Patient doing relatively well and will be going home with spouse. Patient is afebrile with no reported chest pain or shortness of breath. Patient is tolerating diet with no reported nausea or vomiting. Patient reports the passing gas with no difficulties although has not had a bowel movement yet. Recommend continued stool softeners with the pain medications. Encouraged elevating lower extremities while at rest and continuing with restrictions per orthopedics. Patient is medically stable once cleared by orthopedics Review of systems: Constitutional: No reports of fatigue, fever, or chills Cardiovascular: No reports of chest pain or palpitations Respiratory: No reports of shortness of breath or cough GI: No reports of nausea, vomiting, or diarrhea : No reports of dysuria or retention Neurovascular: No reports of weakness reports of some left hip pain All medications have been reviewed Physical exam: Gen: This is a 73-year-old male who is awake, alert and oriented x 3, sitting up in the chair, well-developed, well-nourished HEENT: Head is atraumatic, normocephalic. Pupils equal, round. Sclerae is anicteric. NECK: Supple. No JVD. No lymphadenopathy. No thyromegaly. LUNGS: Clear to auscultation. No wheezes or rhonchi. No intercostal retractions. HEART: Regular rate and rhythm. No murmur. ABDOMEN: Soft. Bowel sounds are present. No masses. No tenderness. EXTREMITIES: No pedal edema. No calf tenderness. Left hip dressing is dry and intact with minimal swelling noted NEUROLOGICAL: Patient is awake, alert and oriented x3. Cranial nerves 2 through 12 are grossly intact. Assessment: Left total hip arthroplasty postoperative day 1 Hypertension fairly controlled Hyperlipidemia Adenocarcinoma of the lung status post RUL resection in January 2023 CLL diagnosed in 2019 currently being monitored GI and DVT prophylaxis as per primary team Full code Plan: Patient has been seen and evaluated by physical therapy and doing relatively well and will be going home with who is at the bedside Questions and concerns that were answered to the best of our ability Patient with incentive spirometer encouraged to take home and continue using at least 10 times every hour while awake Encourage stool softeners with narcotics Patient instructed to follow-up with primary care provider on discharge Patient is medically stable once cleared by orthopedics Thank you kindly for this consultation. We will continue to follow with orthopedics during hospitalization. The impression and plan of care has been dictated by Loulou Hung, Nurse Practitioner as directed. Dr. Janie MD I have performed a history and examination and MDM of this patient, discussed the same with the dictator, and agree with the dictator's assessment and plan as written ,documented as a scribe. Based on total visit time, I have performed more than 50% of the visit. Objective - Vital Signs Vital signs: Vital Signs Temp 97.7 F 01/24/24 06:55 Pulse 75 01/24/24 06:55 Resp 16 01/24/24 06:55 BP 131/77 01/24/24 06:55 Pulse Ox 96 01/24/24 06:55 FiO2 Intake & Output 01/24/24 01/25/24 01/25/24 18:59 06:59 18:59 Other: Voiding Method Toilet Urinal - Labs CBC & Chem 7: 01/24/24 05:40 01/24/24 05:40 Labs: Abnormal Lab Results - Last 24 Hours (Table) 01/24/24 01/24/24 Range/Units 05:40 05:40 Neutrophils # (Manual) 10.54 H (1.80-7.70) X 10*3/uL Lymphocytes # (Manual) 11.72 H (0.90-5.00) X 10*3/uL Sodium 130 L (135-145) mmol/L Carbon Dioxide 12.7 L (21.6-31.8) mmol/L Anion Gap 21.30 H (4.00-12.00) mmol/L Glucose 117 H (70-110) mg/dL
== END 2024-01-24 13:48 | disposition home health service (06) ==
LOC: OR 09:30 → 4SSUR 13:14 → OR 01-24 13:48
PROVIDERS: ATTEND Orthopaedic Surgery
DX: M16.12 Unilateral primary osteoarthritis, left hip (principal); G89.18 Other acute postprocedural pain; I10 Essential (primary) hypertension; I48.91 Unspecified atrial fibrillation; K21.9 Gastro-esophageal reflux disease without esophagitis; Z79.82 Long term (current) use of aspirin; Z79.899 Other long term (current) drug therapy; Z85.118 Personal history of other malignant neoplasm of bronchus and lung; Z98.890 Other specified postprocedural states
CPT/HCPCS: 97162; 64447; 80048; 85025; 73501; 27130; C1776; J2250; J1100; J2765; J0690 ×3; J2405; J3010; J3490; J2795; J2704

== ENCOUNTER 2024-02-08 13:02 | Inpatient (IN) | payer MEDICARE ==
--- NOTE | 2024-02-08 13:21 | ED ---
General Adult HPI - General Chief complaint: Urogenital Stated complaint: Urogenital Time Seen by Provider: 02/08/24 13:12 Source: patient Mode of arrival: ambulatory Limitations: no limitations - History of Present Illness Initial comments: Dictation was produced using [employer] dictation software. please excuse any grammatical, word or spelling errors. Chief Complaint: 73-year-old male with urinary frequency and pelvic pain History of Present Illness: Patient 73-year-old male who was diagnosed with a UTI 2 weeks ago he went to the urgent care was prescribed an antibiotic. Patient states that he did not feel like he was getting better. Allegedly cultures were sent and patient had Morganella in his urine. Patient was treated with Bactrim. He states that he has 3 days left of his Bactrim however he feels like he is not improving. Denies any fever, chills or night sweats. Patient does not have any testicular pain penile pain or pain with bowel movements. The ROS documented in this emergency department record has been reviewed and confirmed by me. Those systems with pertinent positive or negative responses have been documented in the HPI. All other systems are other negative and/or noncontributory. - Related Data Home Medications Medication Instructions Recorded Confirmed Fluticasone Nasal [place] [Flonase 2 spray EA NOSTRIL DAILY PRN 01/24/23 01/23/24 Nasal [place]] Acetaminophen [Acetaminophen 8 hr] 650 mg PO Q8H PRN 01/03/24 01/23/24 L.acidoph,Paracasei, B.lactis 1 each PO DAILY 01/03/24 01/23/24 [Probiotic] Losartan Potassium 25 mg PO QAM 01/03/24 01/23/24 polyethylene glycoL 3350 [Clearlax] 1 packet PO DAILY PRN 01/03/24 01/23/24 Aspirin [Children's Aspirin] 81 mg PO DAILY 01/16/24 01/23/24 Atorvastatin [Lipitor] 10 mg PO DAILY 01/16/24 01/23/24 Previous Rx's Medication Instructions Recorded Aspirin 325 mg PO BID #60 tab 01/23/24 HYDROcodone/APAP 7.5-325MG [[place] 1 - 2 tab PO Q6H PRN #32 tab 01/23/24 7.5-325] Sennosides [Senokot] 2 tab PO DAILY PRN #60 tablet 01/23/24 Cyclobenzaprine [Flexeril] 10 mg PO TID #30 tablet 01/24/24 Allergies Allergy/AdvReac Type Severity Reaction Status Date / Time No Known Allergies Allergy Verified 02/08/24 13:10 Review of Systems ROS Statement: Those systems with pertinent positive or pertinent negative responses have been documented in the HPI. ROS Other: All systems not noted in ROS Statement are negative. 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 Past Psychological History: No Psychological Hx Reported Smoking Status: Never smoker Past Alcohol Use History: None Reported Past Drug Use History: None Reported - Past Family History Father Family Medical History: Cancer Mother Family Medical History: Cancer General Exam - General Exam Comments Initial Comments: PHYSICAL EXAM: General Impression: Alert and oriented x3, not in acute distress HEENT: Normocephalic atraumatic, extra-ocular movements intact, pupils equal and reactive to light bilaterally, mucous membranes moist. Cardiovascular: Heart regular rate and rhythm Chest: Able to complete full sentences, no retractions, no tachypnea Abdomen: abdomen soft, non-tender, non-distended, no organomegaly Musculoskeletal: Pulses present and equal in all extremities, no peripheral edema Motor: no focal deficits noted Neurological: CN II-XII grossly intact, no focal motor or sensory deficits noted Skin: Intact with no visualized rashes Psych: Normal affect and mood Genital exam: Deferred Limitations: no limitations Course Vital Signs 02/08/24 02/08/24 13:08 14:44 Temperature 97.8 F Pulse Rate 63 74 Respiratory 16 16 Rate Blood Pressure 136/81 143/81 O2 Sat by Pulse 98 98 Oximetry Medical Decision Making - Medical Decision Making Was pt. sent in by a medical professional or institution (, PA, PARTS REPRESENTATIVE, urgent care, hospital, or [facility]...) When possible be specific @ -No Did you speak to anyone other than the patient for history (EMS, parent, family, police, friend...)? What history was obtained from this source @ -No Did you review nursing and triage notes (agree or disagree)? Why? @ -I reviewed and agree with nursing and triage notes Were old charts reviewed (outside hosp., previous admission, EMS record, old EKG, old radiological studies, urgent care reports/EKG's, ch[facility] records)? Report findings @ -No old charts were reviewed Differential Diagnosis (chest pain, altered mental status, abdominal pain women, abdominal pain men, vaginal bleeding, musculoskeletal, weakness, fever, dyspnea, syncope, headache, dizziness, GI bleed, back pain, seizure, CVA, palpatations, mental health)? @ -UTI, prostatitis, urethritis, proctitis EKG interpreted by me (3pts min.). @ -None done X-rays interpreted by me (1pt min.). @ -None done CT interpreted by me (1pt min.). @ -None done U/S interpreted by me (1pt. min.). @ -None done What testing was considered but not performed or refused? (CT, X-rays, U/S, labs)? Why? @ -None What meds were considered but not given or refused? Why? @ -None Was smoking cessation discussed for >3mins.? @ -No Were there social determinants of health that impacted care today? How? (Homelessness, low income, unemployed, alcoholism, drug addiction, transportation, low edu. Level, literacy, decrease access to med. care, half-way, rehab)? @ -No Was there de-escalation of care discussed even if they declined (Discuss DNR or withdrawal of care, Hospice)? DNR status @ -No What co-morbidities impacted this encounter? (DM, HTN, Smoking, COPD, CAD, Cancer, CVA, ARF, Chemo, Hep., AIDS, mental health diagnosis, sleep apnea, morbid obesity)? @ -None Was patient admitted / discharged? Hospital course, mention meds given and route, prescriptions, significant lab abnormalities, going to OR and other pertinent info. @ -3-7year-old male presents to the emergency department for urinary symptoms. Vital signs are stable. Well-appearing at the bedside. Laboratory evaluation obtained. Hyponatremic 118. Urinalysis is negative. Postvoid residual is greater than 900. Shin catheter was placed. Given patient's degree of hyponatremia patient will be admitted with consultation to nephrology. Case was discussed with Dr. Ash who recommends patient have a urology consult hospital stay. Case discussed with hospitalist for admission. Did you discuss the management of the patient with other professionals (pr ofessionals i.e. , PA, PARTS REPRESENTATIVE, lab, RT, psych nurse, psychologist social, children's court magistrate, teacher, bank compliance officer, case technician)? Give summary @ -See above Was critical care preformed (if so, how long)? @ -No Undiagnosed new problem with uncertain prognosis? @ -No Drug Therapy requiring intensive monitoring for toxicity (Heparin, Nitro, Insulin, Cardizem)? @ -No Were any procedures done? @ -No Diagnosis/symptom? Acute, or Chronic, or Acute on Chronic? Uncomplicated (without systemic symptoms) or Complicated (systemic symptoms)? @ -Hyponatremia, urinary retention Side effects of treatment? @ -No Exacerbation, Progression, or Severe Exacerbation? @ -No Poses a threat to life or bodily function? How? (Chest pain, [place], [place], pneumonia, PE, COPD, DKA, ARF, appy, cholecystitis, CVA, Diverticulitis, Homicidal, Suicidal, threat to staff... and all critical care pts) @ -yes - Lab Data Result diagrams: 02/08/24 13:23 02/08/24 13:23 Lab Results 02/08/24 02/08/24 02/08/24 Range/Units 13:23 13:23 13:23 WBC 12.3 H (3.8-10.6) k/uL RBC 3.86 L (4.30-5.90) m/uL Hgb 11.4 L (13.0-17.5) gm/dL Hct 34.0 L (39.0-53.0) % MCV 88.1 (80.0-100.0) fL MCH 29.6 (25.0-35.0) pg MCHC 33.6 (31.0-37.0) g/dL RDW 13.7 (11.5-15.5) % Plt Count 455 H (150-450) k/uL MPV 7.5 Neutrophils % (Manual) 51 % Lymphocytes % (Manual) 37 % Monocytes % (Manual) 11 % Eosinophils % (Manual) 1 % Neutrophils # (Manual) 6.27 (1.3-7.7) k/uL Lymphocytes # (Manual) 4.55 (1.0-4.8) k/uL Monocytes # (Manual) 1.35 H (0-1.0) k/uL Eosinophils # (Manual) 0.12 (0-0.7) k/uL Nucleated RBCs 0 (0-0) /100 WBC Manual Slide Review Performed Large Platelets Present Sodium 118 L* (137-145) mmol/L Potassium 4.4 (3.5-5.1) mmol/L Chloride 87 L (98-107) mmol/L Carbon Dioxide 24 (22-30) mmol/L Anion Gap 7 mmol/L BUN 10 (9-20) mg/dL Creatinine 0.49 L (0.66-1.25) mg/dL Est GFR (CKD-EPI)AfAm >90 (>60 ml/min/1.73 sqM) Est GFR (CKD-EPI)NonAf >90 (>60 ml/min/1.73 sqM) Glucose 107 H (74-99) mg/dL Calcium 8.9 (8.4-10.2) mg/dL Urine Color Colorless Urine Appearance Clear (Clear) Urine pH 6.5 (5.0-8.0) Ur Specific [place] 1.004 (1.001-1.035) Urine Protein Negative (Negative) Urine Glucose (UA) Negative (Negative) Urine Ketones Negative (Negative) Urine Blood Negative (Negative) Urine Nitrite Negative (Negative) Urine Bilirubin Negative (Negative) Urine Urobilinogen <2.0 (<2.0) mg/dL Ur Leukocyte Esterase Negative (Negative) Disposition Clinical Impression: Hyponatremia Disposition: ADMITTED IP TO THIS [facility] Condition: Fair Referrals: Luis Carlos Jerome MD [Primary Care Provider] - 1-2 days Decision Time: 14:44
[2024-02-08 13:44] LABS: Appearance,Urine Clear (Clear); Bilirubin,Urine Negative (Negative); Blood,Urine Negative (Negative); Color,Urine Colorless; Glucose,Urine (UA) Negative (Negative); Ketones,Urine Negative (Negative); Leukocyte Esterase,Urine Negative (Negative); Nitrite,Urine Negative (Negative); PH, Urine 6.5 (5.0-8.0); Protein,Urine Negative (Negative); Specific Gravity,Urine 1.004 (1.001-1.035); Urobilinogen,Urine <2.0 mg/dL (<2.0)
[2024-02-08 13:59] LABS: African American GFR (CKD) >90 (>60 ml/min/1.73 sqM); Anion Gap 7 mmol/L; Blood Urea Nitrogen 10 mg/dL (9-20); Calcium 8.9 mg/dL (8.4-10.2); Carbon Dioxide 24 mmol/L (22-30); Chloride 87 mmol/L (98-107); Glucose 107 mg/dL (74-99); Non-African American GFR(CKD) >90 (>60 ml/min/1.73 sqM); Potassium 4.4 mmol/L (3.5-5.1)
[2024-02-08 14:03] LABS: HGB 11.4 gm/dL (13.0-17.5); MCH 29.6 pg (25.0-35.0); MCHC 33.6 g/dL (31.0-37.0); MCV 88.1 fL (80.0-100.0); Mean Platelet Volume 7.5; Platelet Count 455 k/uL (150-450); RBC 3.86 m/uL (4.30-5.90); RDW 13.7 % (11.5-15.5); WBC 12.3 k/uL (3.8-10.6)
[2024-02-08 14:12] LABS: Sodium 118 mmol/L (137-145)
[2024-02-08 14:27] LABS: Eosinophils # (M) 0.12 k/uL (0-0.7); Lymphocytes # (M) 4.55 k/uL (1.0-4.8); Monocytes # (M) 1.35 k/uL (0-1.0); Neutrophils # (M) 6.27 k/uL (1.3-7.7); Neutrophils % (M) 51 %; Nucleated Red Blood Cells 0 /100 WBC (0-0); Total Cells Counted 100
[2024-02-08 14:28] LABS: Large Platelets Present
[2024-02-08] MEDS ORDERED: NALOXONE 0.4 MG/ML 1 ML VIAL IV PRN (14:34)
[2024-02-08] MEDS: SODIUM CHLORIDE 0.9% 1,000 ML IV SCH ×2 (14:41→22:06)
[2024-02-08] MEDS ORDERED: SENNOSIDES 8.6 MG TAB PO PRN (17:18)
[2024-02-08] MEDS: ACETAMINOPHEN TAB 325 MG TAB PO PRN (17:37)
[2024-02-08] MEDS: ENOXAPARIN 40 MG/0.4 ML SYRINGE SQ SCH (17:37)
[2024-02-08] MEDS: CYCLOBENZAPRINE 10 MG TAB PO PRN (17:37)
[2024-02-08 18:18] LABS: African American GFR (CKD) >90 (>60 ml/min/1.73 sqM); Anion Gap 5 mmol/L; Blood Urea Nitrogen 9 mg/dL (9-20); Calcium 8.5 mg/dL (8.4-10.2); Carbon Dioxide 27 mmol/L (22-30); Chloride 88 mmol/L (98-107); Glucose 108 mg/dL (74-99); Non-African American GFR(CKD) >90 (>60 ml/min/1.73 sqM); Potassium 3.9 mmol/L (3.5-5.1); Sodium 120 mmol/L (137-145)
--- NOTE | 2024-02-08 20:46 | P.HPIM ---
History of Present Illness H&P Date: 02/08/24 Chief Complaint: Week This is a pleasant 73-year-old patient who follows with Dr. Rachid Jerome. Chronic stable medical conditions include CLL, hypertension, hyperlipidemia, right upper lung lobe removed for pulmonary adenocarcinoma. Patient on January 26 was diagnosed with a UTI initially given an antibiotic for 4 days and switched over to Bactrim for the last 7 days. Patient on January 22 underwent hip surgery by Dr. Max. Patient been having small amounts of urine output frequently. Getting weak and tired. In the ER patient found to have a rather large distended bladder. Shin catheter was placed. About 2000 cc of urine was obtained. Denies any fever and chills. Review of systems: GEN.: Tired EYES: None HEENT: None NECK: None RESPIRATORY: None CARDIOVASCULAR: None GASTROINTESTINAL: None GENITOURINARY: As above] MUSCULOSKELETAL: Joint pains] LYMPHATICS: None HEMATOLOGICAL: None PSYCHIATRY: None NEUROLOGICAL: None Social history: Does not smoke or drink alcohol. Retired from [employer] Physical examination: VITAL SIGNS: 98.3, 82, 16, 122/71, 99% room air GENERAL: BMI 25.8, reclining bed awake comfortable. EYES: Pupils equal. Conjunctiva huang l. HEENT: External appearance of nose and ears normal, oral cavity grossly normal. NECK: JVD not raised; masses not palpable. HEART: First and second heart sounds are normal; no edema. LUNGS: Respiratory rate normal; clear to auscultation. ABDOMEN: Soft, nontender, liver spleen not palpable, no masses palpable. Shin catheter PSYCH: Alert and oriented x3; mood and affect huang l. MUSCULOSKELETAL:No Clubbing/cyanosis;muscles-grossly intact. OA NEUROLOGICAL: Cranial nerves grossly intact; no facial asymmetry, power and sensation grossly intact. LYMPHATICS: No lymph nodes palpable in the axilla and neck INVESTIGATIONS, reviewed in the clinical context: February 08, 2024: Sodium 118 potassium 4.4 BUN 10 creatinine 0.49 sodium 12.3 hemoglobin 11.4 platelets 455 UA: Negative Assessment and plan: -Severe hyponatremia, from increased water intake Fluid restriction. 1500 cc a day. Check urine sodium osmolality. [facility] Nephrology consulted -Acute severe urine retention from bladder outflow obstruction. Shin catheter was placed in the ER. About 2000 cc urine was obtained. Add Flomax 0.4 mg nightly -Primary osteoarthritis. Patient underwent hip surgery with Dr. Max on January 22. -Suspect BPH causing outflow obstruction -Essential hypertension Cozaar 25 mg a day. -Hyperlipidemia Lipitor 10 mg a day -Recent UTI. Patient received a course of antibiotic for 4 days then Bactrim for last 7 days. Currently UA is unremarkable. Will hold off antibiotics -Full code Care was discussed with the patient at the bedside. Increase activity. Flomax added. Past Medical History Past Medical History: Cancer, Hypertension Additional Past Medical History / Comment(s): Pulmonary adenocarcinoma. CLL-2019-no tx yet, just being monitored History of Any Multi-Drug Resistant Organisms: None Reported Past Surgical History: Hernia Repair, Joint Replacement Additional Past Surgical History / Comment(s): LEFT CATARACT SURGERY WITH IMPLANTS, HERNIA X2, total right knee, COLONOSCOPY, RUL resection 01/2023, Total left hip Past Anesthesia/Blood Transfusion Reactions: No Reported Reaction Additional Past Anesthesia/Blood Transfusion Reaction / Comment(s): had hiccups intermittently for a few weeks after carpal tunnel surg. Past Psychological History: No Psychological Hx Reported Smoking Status: Never smoker Past Alcohol Use History: None Reported Past Drug Use History: None Reported - Past Family History Father Family Medical History: Cancer Mother Family Medical History: Cancer Medications and Allergies Home Medications Medication Instructions Recorded Confirmed Type Fluticasone Nasal [place] [Flonase 2 spray EA NOSTRIL DAILY PRN 01/24/23 02/08/24 History Nasal [place]] Acetaminophen [Acetaminophen 8 hr] 650 mg PO Q8H PRN 01/03/24 02/08/24 History L.acidoph,Paracasei, B.lactis 1 cap PO DAILY 01/03/24 02/08/24 History [Probiotic] Atorvastatin [Lipitor] 10 mg PO DAILY 01/16/24 02/08/24 History Aspirin 325 mg PO BID #60 tab 01/23/24 02/08/24 Rx HYDROcodone/APAP 7.5-325MG [[place] 1 - 2 tab PO Q6H PRN #32 tab 01/23/24 02/08/24 Rx 7.5-325] Sennosides [Senokot] 2 tab PO DAILY PRN #60 tablet 01/23/24 02/08/24 Rx Cyclobenzaprine [Flexeril] 10 mg PO TID PRN 02/08/24 02/08/24 History Docusate [Colace] 300 mg PO DAILY 02/08/24 02/08/24 History Losartan [Cozaar] 25 mg PO DAILY 02/08/24 02/08/24 History Sulfamethox-Tmp 800-160Mg [Bactrim 1 tab PO Q12HR 02/08/24 02/08/24 History DS 800-160 mg] Allergies Allergy/AdvReac Type Severity Reaction Status Date / Time No Known Allergies Allergy Verified 02/08/24 13:10 Physical Exam Vitals: Vital Signs Temp Pulse Pulse Resp BP BP Pulse Ox 02/08/24 20:10 98.3 F 82 16 122/71 99 02/08/24 16:19 98.5 F 79 18 153/82 99 02/08/24 16:06 98.2 F 78 16 133/78 02/08/24 14:44 74 16 143/81 98 02/08/24 13:08 97.8 F 63 16 136/81 98 Intake and Output 02/08/24 02/08/24 02/08/24 06:59 14:59 22:59 Intake Total 148 Output Total 2999 600 Balance -2999 -452 Intake: IV 30 Invasive Line 1 20 Invasive Line 2 10 Oral 118 Output: Urine 2000 600 Post Void Residual 999 Other: Voiding Method Toilet Indwelling Catheter Weight 81.647 kg 81.647 kg Results CBC & Chem 7: 02/08/24 13:23 02/08/24 17:48 Labs: Abnormal Lab Results - Last 24 Hours (Table) 02/08/24 02/08/24 02/08/24 Range/Units 13:23 13:23 17:48 WBC 12.3 H (3.8-10.6) k/uL RBC 3.86 L (4.30-5.90) m/uL Hgb 11.4 L (13.0-17.5) gm/dL Hct 34.0 L (39.0-53.0) % Plt Count 455 H (150-450) k/uL Monocytes # (Manual) 1.35 H (0-1.0) k/uL Sodium 118 L* 120 L (137-145) mmol/L Chloride 87 L 88 L (98-107) mmol/L Creatinine 0.49 L 0.56 L (0.66-1.25) mg/dL Glucose 107 H 108 H (74-99) mg/dL Thrombosis Risk Factor Assmnt - Choose All That Apply Any of the Below Risk Factors Present?: Yes Each Factor Represents 1 point: History of prior major surgery (<1month), Obesity (BMI >25) Other Risk Factors: Yes Each Risk Factor Represents 2 Points: Age 61-74 years, Arthroscopic surgery Other congenital or acquired thrombophilia - If yes, enter type in comment: No Each Risk Factor Represents 5 Points: Elective major lower extremity arthoplasty Thrombosis Risk Factor Assessment Total Risk Factor Score: 11 Thrombosis Risk Factor Assessment Level: High Risk
[2024-02-08] MEDS: TAMSULOSIN 0.4 MG CAP.ER.24H PO SCH (21:26)
[2024-02-08] MEDS: ASPIRIN 325 MG TAB PO SCH (21:26)
[2024-02-08 23:09] LABS: African American GFR (CKD) >90 (>60 ml/min/1.73 sqM); Anion Gap 7 mmol/L; Blood Urea Nitrogen 11 mg/dL (9-20); Calcium 8.6 mg/dL (8.4-10.2); Carbon Dioxide 25 mmol/L (22-30); Chloride 88 mmol/L (98-107); Glucose 96 mg/dL (74-99); Non-African American GFR(CKD) >90 (>60 ml/min/1.73 sqM); Potassium 4.3 mmol/L (3.5-5.1); Sodium 120 mmol/L (137-145)
[2024-02-09 05:02] LABS: African American GFR (CKD) >90 (>60 ml/min/1.73 sqM); Anion Gap 3 mmol/L; Blood Urea Nitrogen 9 mg/dL (9-20); Calcium 8.4 mg/dL (8.4-10.2); Carbon Dioxide 26 mmol/L (22-30); Chloride 92 mmol/L (98-107); Glucose 98 mg/dL (74-99); Non-African American GFR(CKD) >90 (>60 ml/min/1.73 sqM); Potassium 4.3 mmol/L (3.5-5.1); Sodium 121 mmol/L (137-145)
[2024-02-09] MEDS: ASPIRIN 81 MG PO SCH (08:19)
[2024-02-09] MEDS: ATORVASTATIN 10 MG TAB PO SCH (08:19)
[2024-02-09] MEDS: LOSARTAN 25 MG TAB PO SCH (08:19)
[2024-02-09] MEDS: LACTOBACILLUS ACIDOPHILUS/PECT 1 EACH CAPSULE PO SCH (08:19)
--- NOTE | 2024-02-09 08:43 | P.GSCN ---
History of Present Illness Consult date: 02/09/24 History of present illness: 73 yo male admitted for hyponatremia, uti and urine retention. We were asked to see for the retention. The patient was catheterized for what appears to be 2000 mL. It is not totally clear. The patient does admit to notable urinary symptom s prior to the urine retention including frequency urgency, urgency to the point of incontinence. He had hip surgery a few weeks back. But he did have symptoms prior to that. His no history of infection or hematuria. There is no family history of prostate problems. He apparently has had a PSA that has been normal. There was a PSA on the chart at 3.8 in November 2022. The patient has no major bow el problems. He does have chronic back discomfort for which she sees a chiropractor. There is no obvious neuropathy Review of Systems All systems: negative - Constitutional Denies fever, Denies weight loss - EENT Eyes: denies blurred vision Ears, nose, mouth and throat: Denies dysphagia - Cardiovascular Denies chest pain, Denies shortness of breath - Respiratory Denies cough, Denies 7 - Gastrointestinal Reports as per HPI - Genitourinary Denies dysuria, Denies hematuria - Integumentary Denies rash, Denies unusual bruising - Neurological Denies headaches, Denies syncope - Hematologic/Lymphatic Denies easy bleeding, Denies easy bruising Past Medical History Past Medical History: Cancer, Hypertension Additional Past Medical History / Comment(s): Pulmonary adenocarcinoma. -2018-no tx yet, just being monitored History of Any Multi-Drug Resistant Organisms: None Reported Past Surgical History: Hernia Repair, Joint Replacement Additional Past Surgical History / Comment(s): LEFT CATARACT SURGERY WITH IMPLANTS, HERNIA X2, total right knee, COLONOSCOPY, RUL resection 01/2023, Total left hip Past Anesthesia/Blood Transfusion Reactions: No Reported Reaction Additional Past Anesthesia/Blood Transfusion Reaction / Comm: had hiccups intermittently for a few weeks after carpal tunnel surg. Past Psychological History: No Psychological Hx Reported Smoking Status: Never smoker Past Alcohol Use History: None Reported Past Drug Use History: None Reported - Past Family History Father Family Medical History: Cancer Mother Family Medical History: Cancer Medications and Allergies Home Medications Medication Instructions Recorded Confirmed Type Fluticasone Nasal [place] [Flonase 2 spray EA NOSTRIL DAILY PRN 01/24/23 02/08/24 History Nasal [place]] Acetaminophen [Acetaminophen 8 hr] 650 mg PO Q8H PRN 01/03/24 02/08/24 History L.acidoph,Paracasei, B.lactis 1 cap PO DAILY 01/03/24 02/08/24 History [Probiotic] Atorvastatin [Lipitor] 10 mg PO DAILY 01/16/24 02/08/24 History Aspirin 325 mg PO BID #60 tab 01/23/24 02/08/24 Rx HYDROcodone/APAP 7.5-325MG [[place] 1 - 2 tab PO Q6H PRN #32 tab 01/23/24 02/08/24 Rx 7.5-325] Sennosides [Senokot] 2 tab PO DAILY PRN #60 tablet 01/23/24 02/08/24 Rx Cyclobenzaprine [Flexeril] 10 mg PO TID PRN 02/08/24 02/08/24 History Docusate [Colace] 300 mg PO DAILY 02/08/24 02/08/24 History Losartan [Cozaar] 25 mg PO DAILY 02/08/24 02/08/24 History Sulfamethox-Tmp 800-160Mg [Bactrim 1 tab PO Q12HR 02/08/24 02/08/24 History DS 800-160 mg] Allergies Allergy/AdvReac Type Severity Reaction Status Date / Time No Known Allergies Allergy Verified 02/08/24 13:10 Surgical - Exam Vital Signs Temp Pulse Resp BP Pulse Ox 97.8 F 63 16 136/81 98 02/08/24 13:08 02/08/24 13:08 02/08/24 13:08 02/08/24 13:08 02/08/24 13:08 - Genitourinary Indwelling catheter. 30 g prostate without obvious nodules Results - Labs 02/08/24 13:23 02/09/24 04:20 Abnormal Lab Results - Last 24 Hours (Table) 02/08/24 02/08/24 02/08/24 Range/Units 13:23 13:23 17:48 WBC 12.3 H (3.8-10.6) k/uL RBC 3.86 L (4.30-5.90) m/uL Hgb 11.4 L (13.0-17.5) gm/dL Hct 34.0 L (39.0-53.0) % Plt Count 455 H (150-450) k/uL Monocytes # (Manual) 1.35 H (0-1.0) k/uL Sodium 118 L* 120 L (137-145) mmol/L Chloride 87 L 88 L (98-107) mmol/L Creatinine 0.49 L 0.56 L (0.66-1.25) mg/dL Glucose 107 H 108 H (74-99) mg/dL Urine Osmolality (400-1100) mOsm/kg Ur Random Sodium (40-220) mmol/L 02/08/24 02/08/24 02/08/24 Range/Units 21:00 21:00 22:27 WBC (3.8-10.6) k/uL RBC (4.30-5.90) m/uL Hgb (13.0-17.5) gm/dL Hct (39.0-53.0) % Plt Count (150-450) k/uL Monocytes # (Manual) (0-1.0) k/uL Sodium 120 L (137-145) mmol/L Chloride 88 L (98-107) mmol/L Creatinine 0.62 L (0.66-1.25) mg/dL Glucose (74-99) mg/dL Urine Osmolality 379 L (400-1100) mOsm/kg Ur Random Sodium 36 L (40-220) mmol/L 02/09/24 Range/Units 04:20 WBC (3.8-10.6) k/uL RBC (4.30-5.90) m/uL Hgb (13.0-17.5) gm/dL Hct (39.0-53.0) % Plt Count (150-450) k/uL Monocytes # (Manual) (0-1.0) k/uL Sodium 121 L (137-145) mmol/L Chloride 92 L (98-107) mmol/L Creatinine 0.53 L (0.66-1.25) mg/dL Glucose (74-99) mg/dL Urine Osmolality (400-1100) mOsm/kg Ur Random Sodium (40-220) mmol/L Diabetes panel 02/08/24 02/08/24 02/08/24 Range/Units 13:23 17:48 22:27 Sodium 118 L* 120 L 120 L (137-145) mmol/L Potassium 4.4 3.9 4.3 (3.5-5.1) mmol/L Chloride 87 L 88 L 88 L (98-107) mmol/L Carbon Dioxide 24 27 25 (22-30) mmol/L BUN 10 9 11 (9-20) mg/dL Creatinine 0.49 L 0.56 L 0.62 L (0.66-1.25) mg/dL Glucose 107 H 108 H 96 (74-99) mg/dL Calcium 8.9 8.5 8.6 (8.4-10.2) mg/dL 02/09/24 Range/Units 04:20 Sodium 121 L (137-145) mmol/L Potassium 4.3 (3.5-5.1) mmol/L Chloride 92 L (98-107) mmol/L Carbon Dioxide 26 (22-30) mmol/L BUN 9 (9-20) mg/dL Creatinine 0.53 L (0.66-1.25) mg/dL Glucose 98 (74-99) mg/dL Calcium 8.4 (8.4-10.2) mg/dL Calcium panel 02/08/24 02/08/24 02/08/24 Range/Units 13:23 17:48 22:27 Calcium 8.9 8.5 8.6 (8.4-10.2) mg/dL 02/09/24 Range/Units 04:20 Calcium 8.4 (8.4-10.2) mg/dL Pituitary panel 02/08/24 02/08/24 02/08/24 Range/Units 13:23 17:48 22:27 Sodium 118 L* 120 L 120 L (137-145) mmol/L Potassium 4.4 3.9 4.3 (3.5-5.1) mmol/L Chloride 87 L 88 L 88 L (98-107) mmol/L Carbon Dioxide 24 27 25 (22-30) mmol/L BUN 10 9 11 (9-20) mg/dL Creatinine 0.49 L 0.56 L 0.62 L (0.66-1.25) mg/dL Glucose 107 H 108 H 96 (74-99) mg/dL Calcium 8.9 8.5 8.6 (8.4-10.2) mg/dL 02/09/24 Range/Units 04:20 Sodium 121 L (137-145) mmol/L Potassium 4.3 (3.5-5.1) mmol/L Chloride 92 L (98-107) mmol/L Carbon Dioxide 26 (22-30) mmol/L BUN 9 (9-20) mg/dL Creatinine 0.53 L (0.66-1.25) mg/dL Glucose 98 (74-99) mg/dL Calcium 8.4 (8.4-10.2) mg/dL Adrenal panel 02/08/24 02/08/24 02/08/24 Range/Units 13:23 17:48 22:27 Sodium 118 L* 120 L 120 L (137-145) mmol/L Potassium 4.4 3.9 4.3 (3.5-5.1) mmol/L Chloride 87 L 88 L 88 L (98-107) mmol/L Carbon Dioxide 24 27 25 (22-30) mmol/L BUN 10 9 11 (9-20) mg/dL Creatinine 0.49 L 0.56 L 0.62 L (0.66-1.25) mg/dL Glucose 107 H 108 H 96 (74-99) mg/dL Calcium 8.9 8.5 8.6 (8.4-10.2) mg/dL 02/09/24 Range/Units 04:20 Sodium 121 L (137-145) mmol/L Potassium 4.3 (3.5-5.1) mmol/L Chloride 92 L (98-107) mmol/L Carbon Dioxide 26 (22-30) mmol/L BUN 9 (9-20) mg/dL Creatinine 0.53 L (0.66-1.25) mg/dL Glucose 98 (74-99) mg/dL Calcium 8.4 (8.4-10.2) mg/dL Assessment and Plan Assessment: Impression: urine retention with secondary uti. Hyponatremia. Pre-urine r etention symptoms of BPH Recommendations: The patient has an indwelling catheter. He feels much better. He's been started on Flomax. Due to the large volume of urine I recommend leaving the catheter in one week at minimum prior to a voiding trial. He should follow-up in our office for this. This has been discussed at length with the patient.
--- NOTE | 2024-02-09 14:37 | P.NPCON ---
History of Present Illness - Reason for Consult Consult date: 02/09/24 - History of Present Illness Patient is a 73-year-old male with past medical history significant for hypertension, hyperlipidemia, CLL, right upper lung lobe removed for pulmonary adenocarcinoma. On January 26 he was diagnosed with a UTI via urgent care and placed on antibiotics. He states that after surgery on January 22 he didn't feel like he was empty his bladder fully and was urinating more frequently at night. Patient denies history of nausea, vomiting, diarrhea. No significnat hypotension noted. He states that he regularly drinks a lot of water. He presented to the ED yesterday with urinary frequency and pelvic pain. He was found to have a distended bladder, a Shin catheter was placed, about 2000 cc of urine was obtained. His sodium was found to be 118 on admission yesterday. Improved to 121 today. Patient admits to previous history of low sodium with sodium around 128. Started normal saline. Started on Flomax. Maintained on home losartan. Past Medical History Past Medical History: Cancer, Hypertension Additional Past Medical History / Comment(s): Pulmonary adenocarcinoma. CLL-2018-no tx yet, just being monitored History of Any Multi-Drug Resistant Organisms: None Reported Past Surgical History: Hernia Repair, Joint Replacement Additional Past Surgical History / Comment(s): LEFT CATARACT SURGERY WITH IMPLANTS, HERNIA X2, total right knee, COLONOSCOPY, RUL resection 01/2023, Total left hip Past Anesthesia/Blood Transfusion Reactions: No Reported Reaction Additional Past Anesthesia/Blood Transfusion Reaction / Comment(s): had hiccups intermittently for a few weeks after carpal tunnel surg. Past Psychological History: No Psychological Hx Reported Smoking Status: Never smoker Past Alcohol Use History: None Reported Past Drug Use History: None Reported - Past Family History Father Family Medical History: Cancer Mother Family Medical History: Cancer Medications and Allergies Home Medications Medication Instructions Recorded Confirmed Type Fluticasone Nasal [place] [Flonase 2 spray EA NOSTRIL DAILY PRN 01/24/23 02/08/24 History Nasal [place]] Acetaminophen [Acetaminophen 8 hr] 650 mg PO Q8H PRN 01/03/24 02/08/24 History L.acidoph,Paracasei, B.lactis 1 cap PO DAILY 01/03/24 02/08/24 History [Probiotic] Atorvastatin [Lipitor] 10 mg PO DAILY 01/16/24 02/08/24 History Aspirin 325 mg PO BID #60 tab 01/23/24 02/08/24 Rx HYDROcodone/APAP 7.5-325MG [[place] 1 - 2 tab PO Q6H PRN #32 tab 01/23/24 02/08/24 Rx 7.5-325] Sennosides [Senokot] 2 tab PO DAILY PRN #60 tablet 01/23/24 02/08/24 Rx Cyclobenzaprine [Flexeril] 10 mg PO TID PRN 02/08/24 02/08/24 History Docusate [Colace] 300 mg PO DAILY 02/08/24 02/08/24 History Losartan [Cozaar] 25 mg PO DAILY 02/08/24 02/08/24 History Sulfamethox-Tmp 800-160Mg [Bactrim 1 tab PO Q12HR 02/08/24 02/08/24 History DS 800-160 mg] Allergies Allergy/AdvReac Type Severity Reaction Status Date / Time No Known Allergies Allergy Verified 02/08/24 13:10 Physical Exam Vitals: Vital Signs Temp Pulse Pulse Resp BP BP Pulse Ox 02/09/24 08:00 97.9 F 68 16 107/66 97 02/09/24 03:25 98 F 71 16 121/78 98 02/09/24 00:00 97.8 F 71 18 118/67 98 02/08/24 20:10 98.3 F 82 16 122/71 99 02/08/24 16:19 98.5 F 79 18 153/82 99 02/08/24 16:06 98.2 F 78 16 133/78 02/08/24 14:44 74 16 143/81 98 02/08/24 13:08 97.8 F 63 16 136/81 98 Intake and Output 02/08/24 02/09/24 02/09/24 22:59 06:59 14:59 Intake Total 385 20 140 Output Total 600 1200 Balance -215 -1180 140 Intake: IV 30 20 20 Invasive Line 1 20 10 10 Invasive Line 2 10 10 10 Oral 355 120 Output: Urine 600 1200 Other: Voiding Method Indwelling Catheter Indwelling Catheter Weight 81.647 kg 80.6 kg Vital signs are stable. General: No acute distress; currently with Shin catheter. HEENT: Head exam is unremarkable. Lungs: Bilateral breath sounds present; no rhonchi, wheezes, or rales. Heart: Rate and rhythm are regular. Abdomen: Nontender. Extremities: No edema present. Results - Lab Results Most recent lab results Calcium 8.4 mg/dL (8.4-10.2) 02/09/24 04:20 02/08/24 13:23 02/10/24 05:26 Assessment and Plan Assessment: 1. Hyponatremia. Acute on chronic. Appears euvolemic, possibly hypovolemic. Improving with normal with saline. Urinary retention most likely causing hyponatremia as well. On admission 02/08/2024 118. Improving 121 today. Urine osmolality 376; urine sodium 36. Patient has a history of lung cancer; improvement of sodium with normal saline goes against diagnosis of SIADH. Obtain TSH and cortisol to rule out adrenal insufficiency. 2. Urinary retention. Currently with Shin catheter - initial output 2000 cc. Maintained on Flomax. Monitor for post obstructive diuresis. Urine output 3.8 L for 24 hours. 3. Status post left hip arthroplasty. 4. Recent UTI? On antibiotics. Current UA is unremarkable. Plan: Maintain IV fluids at 75 cc/hour based off of last sodium. Need to avoid rapid increase of more than 8-10mmol in 24 hours. Maintain Flomax. Maintain antihypertensive medications. Continue to monitor serum sodium Q4-6H. Increase intake of protein. Obtain TSH and cortisol. Thank you for the consultation. We will continue to monitor him during his hospital stay. Agree with resident's findings, assessment and plan.
--- NOTE | 2024-02-09 17:08 | P.PN ---
Progress Note - Text Progress Note Date: 02/09/24 Chief Complaint: Week This is a pleasant 73-year-old patient who follows with Dr. Rachid Jerome. Chronic stable medical conditions include CLL, hypertension, hyperlipidemia, right upper lung lobe removed for pulmonary adenocarcinoma. Patient on January 26 was diagnosed with a UTI initially given an antibiotic for 4 days and switched over to Bactrim for the last 7 days. Patient on January 22 underwent hip surgery by Dr. Max. Patient been having small amounts of urine output frequently. Getting weak and tired. In the ER patient found to have a rather large distended bladder. Shin catheter was placed. About 2000 cc of urine was obtained. Denies any fever and chills. February 08: Patient seen this morning. Otherwise comfortable. Shin catheter in place. Seen by Dr. Escamilla from urology. Recommends to keep the cath in for at least a week. Follow-up outpatient. Fluid restriction. Sodium remains low. Serum osmolality came back low and urine sodium came back low. Getting saline at 75 cc an hour. Active Medications Acetaminophen (Acetaminophen Tab 325 Mg Tab) 650 mg PO Q8H PRN PRN Reason: Pain Last Admin: 02/08/24 17:37 Dose: 650 mg Aspirin (Aspirin 81 Mg) 81 mg PO DAILY [facility] Last Admin: 02/09/24 08:19 Dose: 81 mg Atorvastatin Calcium (Atorvastatin 10 Mg Tab) 10 mg PO DAILY [facility] Last Admin: 02/09/24 08:19 Dose: 10 mg Cyclobenzaprine HCl (Cyclobenzaprine 10 Mg Tab) 10 mg PO TID PRN PRN Reason: Muscle Spasm/RESTLESS LEGS Last Admin: 02/09/24 04:42 Dose: 10 mg Enoxaparin Sodium (Enoxaparin 40 Mg/0.4 Ml Syringe) 40 mg SQ DAILY [facility] Last Admin: 02/09/24 08:19 Dose: 40 mg Sodium Chloride (Saline 0.9%) 1,000 mls @ 75 mls/hr IV .[id number] [facility] Last Admin: 02/09/24 10:40 Dose: Not Given Lactobacillus Acidophilus (Lactobacillus Acidophilus/Pect 1 Each Capsule) 1 each PO DAILY [facility] Last Admin: 02/09/24 08:19 Dose: 1 each Losartan Potassium (Losartan 25 Mg Tab) 25 mg PO DAILY [facility] Last Admin: 02/09/24 08:19 Dose: 25 mg Naloxone HCl (Naloxone 0.4 Mg/Ml 1 Ml Vial) 0.2 mg IV Q2M PRN PRN Reason: Opioid Reversal Senna (Sennosides 8.6 Mg Tab) 8.6 mg PO DAILY PRN PRN Reason: Constipation Tamsulosin HCl (Tamsulosin 0.4 Mg Cap.Er.24h) 0.4 mg PO PC-SUPPER ERICKA Last Admin: 02/08/24 21:26 Dose: 0.4 mg Social history: Does not smoke or drink alcohol. Retired from [employer] Physical examination: VITAL SIGNS: 97.9, 68, 16, 107/66, 97% room air GENERAL: BMI 25.8, reclining bed awake comfortable. EYES: Pupils equal. Conjunctiva huang l. HEENT: External appearance of nose and ears normal, oral cavity grossly normal. NECK: JVD not raised; masses not palpable. HEART: First and second heart sounds are normal; no edema. LUNGS: Respiratory rate normal; clear to auscultation. ABDOMEN: Soft, nontender, liver spleen not palpable, no masses palpable. Shin catheter PSYCH: Alert and oriented x3; mood and affect huang l. MUSCULOSKELETAL:No Clubbing/cyanosis;muscles-grossly intact. OA INVESTIGATIONS, reviewed in the clinical context: February 08: Sodium 121 potassium 4.3 TSH 0.896 urine osmolality 379 urine random sodium 136 February 08, 2024: Sodium 118 potassium 4.4 BUN 10 creatinine 0.49 sodium 12.3 hemoglobin 11.4 platelets 455 UA: Negative Assessment and plan: -Severe hyponatremia, hypoosmolar-possible euvolemic from increased water intake: Slow to respond Fluid restriction. 1500 cc a day. Saline at 75 cc an hour Nephrology following -Acute severe urine retention from bladder outflow obstruction. Shin catheter was placed in the ER. About 2000 cc urine was obtained. Add Flomax 0.4 mg nightly. Seen by Dr. Escamilla. Follow-up outpatient 1 week -Primary osteoarthritis. Patient underwent hip surgery with Dr. Max on January 22. -Suspect BPH causing outflow obstruction -Essential hypertension Cozaar 25 mg a day. -Hyperlipidemia Lipitor 10 mg a day -Recent UTI. Patient received a course of antibiotic for 4 days then Bactrim for last 7 days. Currently UA is unremarkable. Will hold off antibiotics -Full code Discussed with patient. Continue fluid restriction. Avoid free water. Past Medical History Past Medical History: Cancer, Hypertension Additional Past Medical History / Comment(s): Pulmonary adenocarcinoma. CLL-2019-no tx yet, just being monitored History of Any Multi-Drug Resistant Organisms: None Reported Past Surgical History: Hernia Repair, Joint Replacement Additional Past Surgical History / Comment(s): LEFT CATARACT SURGERY WITH IMPLANTS, HERNIA X2, total right knee, COLONOSCOPY, RUL resection 01/2023, Total left hip Past Anesthesia/Blood Transfusion Reactions: No Reported Reaction Additional Past Anesthesia/Blood Transfusion Reaction / Comment(s): had hiccups intermittently for a few weeks after carpal tunnel surg. Past Psychological History: No Psychological Hx Reported Smoking Status: Never smoker Past Alcohol Use History: None Reported Past Drug Use History: None Reported
[2024-02-10] MEDS: SODIUM CHLORIDE TAB 1 GM TAB PO SCH ×2 (11:52→15:43)
--- NOTE | 2024-02-10 12:51 | P.PN ---
Subjective Patient is seen for follow-up for hyponatremia. Status post normal saline with improvement in serum sodium from 118-122. Sodium has not improved further and normal saline was discontinued last night. No nausea vomiting or diarrhea. Patient feels well. Fluid restriction added. Objective - Vital Signs Vital signs: Vital Signs Temp 98.5 F 02/10/24 07:58 Pulse 79 02/10/24 11:50 Resp 16 02/10/24 11:50 BP 104/68 02/10/24 11:50 Pulse Ox 98 02/10/24 11:50 FiO2 Intake & Output 02/09/24 02/10/24 02/10/24 18:59 06:59 18:59 Intake Total 160 40 238 Output Total 2350 1100 Balance -2190 40 -862 Weight 67.5 kg Intake: IV 40 40 Invasive Line 1 20 20 Invasive Line 2 20 20 Oral 120 238 Output: Urine 2350 1100 Other: Voiding Method Indwelling Catheter Indwelling Catheter Indwelling Catheter # Voids 0 1 # Bowel Movements 0 - Exam patient is awake, comfortable, no acute distress. Examination of the heart S1 and S2 Examination of the lungs bilateral breath sounds are heard Abdomen is soft nontender Examination of lower extremities shows no significant edema PROCESS ENG exam grossly intact - Labs CBC & Chem 7: 02/08/24 13:23 02/10/24 05:26 Labs: Abnormal Lab Results - Last 24 Hours (Table) 02/09/24 02/09/24 02/09/24 Range/Units 14:31 18:18 22:32 Sodium 123 L 124 L 122 L (137-145) mmol/L 02/10/24 Range/Units 05:26 Sodium 122 L (137-145) mmol/L Assessment and Plan Assessment: 1. Hyponatremia. Acute on chronic. Appears euvolemic, possibly hypovolemic. Improved with normal saline with no further improvement in sodium after hypovolemic component was corrected. Urinary retention most likely adding to hyponatremia as well. sodium improved from 118-122 and has not improved further. Saline is now discontinued.. Urine osmolality 376; urine sodium 36. 2. Urinary retention. Currently with Shin catheter - initial output 2000 cc. Maintained on Flomax. Monitor for post obstructive diuresis. Urine output 2.3 L for 24 hours. 3. Status post left hip arthroplasty. 4. Recent UTI? On antibiotics. Current UA is unremarkable. Plan: continue off of IV fluids. Add sodium chloride tabs 1 g 3 times a day, blood pressure has been on the lower side. Maintain Flomax. Maintain antihypertensive medications. Continue to monitor serum sodium Increase intake of protein. Continue with fluid restriction.
[2024-02-10] MEDS: TOLVAPTAN 15 MG TABLET PO ONE (16:23)
--- NOTE | 2024-02-10 18:11 | P.PN ---
Progress Note - Text Progress Note Date: 02/10/24 Chief Complaint: Week This is a pleasant 73-year-old patient who follows with Dr. Rachid Jerome. Chronic stable medical conditions include CLL, hypertension, hyperlipidemia, right upper lung lobe removed for pulmonary adenocarcinoma. Patient on January 26 was diagnosed with a UTI initially given an antibiotic for 4 days and switched over to Bactrim for the last 7 days. Patient on January 22 underwent hip surgery by Dr. Max. Patient been having small amounts of urine output frequently. Getting weak and tired. In the ER patient found to have a rather large distended bladder. Shin catheter was placed. About 2000 cc of urine was obtained. Denies any fever and chills. February 08: Patient seen this morning. Otherwise comfortable. Shin catheter in place. Seen by Dr. Escamilla from urology. Recommends to keep the cath in for at least a week. Follow-up outpatient. Fluid restriction. Sodium remains low. Serum osmolality came back low and urine sodium came back low. Getting saline at 75 cc an hour. February 09: Sitting up in a chair. Fluid restriction. Sodium tablets added. Sodium remains low at 122. Patient told to cut back on free fluids. He is eating better. Given 1 dose of Samsca by nephrology. Active Medications Acetaminophen (Acetaminophen Tab 325 Mg Tab) 650 mg PO Q8H PRN PRN Reason: Pain Last Admin: 02/08/24 17:37 Dose: 650 mg Aspirin (Aspirin 81 Mg) 81 mg PO DAILY [facility] Last Admin: 02/10/24 08:04 Dose: 81 mg Atorvastatin Calcium (Atorvastatin 10 Mg Tab) 10 mg PO DAILY [facility] Last Admin: 02/10/24 08:04 Dose: 10 mg Cyclobenzaprine HCl (Cyclobenzaprine 10 Mg Tab) 10 mg PO TID PRN PRN Reason: Muscle Spasm/RESTLESS LEGS Last Admin: 02/09/24 21:00 Dose: 10 mg Enoxaparin Sodium (Enoxaparin 40 Mg/0.4 Ml Syringe) 40 mg SQ DAILY [facility] Last Admin: 02/10/24 08:04 Dose: 40 mg Lactobacillus Acidophilus (Lactobacillus Acidophilus/Pect 1 Each Capsule) 1 each PO DAILY [facility] Last Admin: 02/10/24 08:04 Dose: 1 each Losartan Potassium (Losartan 25 Mg Tab) 25 mg PO DAILY [facility] Last Admin: 02/10/24 08:04 Dose: 25 mg Naloxone HCl (Naloxone 0.4 Mg/Ml 1 Ml Vial) 0.2 mg IV Q2M PRN PRN Reason: Opioid Reversal Senna (Sennosides 8.6 Mg Tab) 8.6 mg PO DAILY PRN PRN Reason: Constipation Sodium Chloride (Sodium Chloride Tab 1 Gm Tab) 1 gm PO TID [facility] Last Admin: 02/10/24 15:43 Dose: 1 gm Tamsulosin HCl (Tamsulosin 0.4 Mg Cap.Er.24h) 0.4 mg PO PC-SUPPER [facility] Last Admin: 02/10/24 17:10 Dose: 0.4 mg Social history: Does not smoke or drink alcohol. Retired from [employer] Physical examination: VITAL SIGNS: 98.7, 82, 16, 103 x 66, 95% room air GENERAL: Up in a recliner EYES: Pupils equal. Conjunctiva huang l. HEENT: External appearance of nose and ears normal, oral cavity grossly normal. NECK: JVD not raised; masses not palpable. HEART: First and second heart sounds are normal; no edema. LUNGS: Respiratory rate normal; clear to auscultation. ABDOMEN: Soft, nontender, liver spleen not palpable, no masses palpable. Shin catheter PSYCH: Alert and oriented x3; mood and affect huang l. MUSCULOSKELETAL:No Clubbing/cyanosis;muscles-grossly intact. OA INVESTIGATIONS, reviewed in the clinical context: February 09: Sodium 122 February 08: Sodium 121 potassium 4.3 TSH 0.896 urine osmolality 379 urine random sodium 136 February 08, 2024: Sodium 118 potassium 4.4 BUN 10 creatinine 0.49 sodium 12.3 hemoglobin 11.4 platelets 455 UA: Negative Assessment and plan: -Severe hyponatremia, hypoosmolar-possible euvolemic from increased water intake: Slow to respond Fluid restriction. 1500 cc a day. Saline discontinued Sodium chloride tablets 1 tablet 3 times daily 1 dose of Samsca ordered Nephrology following -Acute severe urine retention from bladder outflow obstruction. Shin catheter was placed in the ER. About 2000 cc urine was obtained. Add Flomax 0.4 mg nightly. Seen by Dr. Escamilla. Follow-up outpatient 1 week -Primary osteoarthritis. Patient underwent hip surgery with Dr. Max on January 22. -Suspect BPH causing outflow obstruction -Essential hypertension Cozaar 25 mg a day. -Hyperlipidemia Lipitor 10 mg a day -Recent UTI. Patient received a course of antibiotic for 4 days then Bactrim for last 7 days. Currently UA is unremarkable. Will hold off antibiotics -Full code Discussed. Sodium remains low. Follow Past Medical History Past Medical History: Cancer, Hypertension Additional Past Medical History / Comment(s): Pulmonary adenocarcinoma. CLL-2019-no tx yet, just being monitored History of Any Multi-Drug Resistant Organisms: None Reported Past Surgical History: Hernia Repair, Joint Replacement Additional Past Surgical History / Comment(s): LEFT CATARACT SURGERY WITH IMPLANTS, HERNIA X2, total right knee, COLONOSCOPY, RUL resection 01/2023, Total left hip Past Anesthesia/Blood Transfusion Reactions: No Reported Reaction Additional Past Anesthesia/Blood Transfusion Reaction / Comment(s): had hiccups intermittently for a few weeks after carpal tunnel surg. Past Psychological History: No Psychological Hx Reported Smoking Status: Never smoker Past Alcohol Use History: None Reported Past Drug Use History: None Reported
--- NOTE | 2024-02-11 12:11 | P.PN ---
Progress Note - Text Progress Note Date: 02/11/24 Chief Complaint: Week This is a pleasant 73-year-old patient who follows with Dr. Rachid Jerome. Chronic stable medical conditions include CLL, hypertension, hyperlipidemia, right upper lung lobe removed for pulmonary adenocarcinoma. Patient on January 26 was diagnosed with a UTI initially given an antibiotic for 4 days and switched over to Bactrim for the last 7 days. Patient on January 22 underwent hip surgery by Dr. Max. Patient been having small amounts of urine output frequently. Getting weak and tired. In the ER patient found to have a rather large distended bladder. Shin catheter was placed. About 2000 cc of urine was obtained. Denies any fever and chills. February 08: Patient seen this morning. Otherwise comfortable. Shin catheter in place. Seen by Dr. Escamilla from urology. Recommends to keep the cath in for at least a week. Follow-up outpatient. Fluid restriction. Sodium remains low. Serum osmolality came back low and urine sodium came back low. Getting saline at 75 cc an hour. February 09: Sitting up in a chair. Fluid restriction. Sodium tablets added. Sodium remains low at 122. Patient told to cut back on free fluids. He is eating better. Given 1 dose of Samsca by nephrology. February 10: Remains on fluid restriction. Salt tablets added yesterday. Sodium 128 today. Eating fair. Active Medications Acetaminophen (Acetaminophen Tab 325 Mg Tab) 650 mg PO Q8H PRN PRN Reason: Pain Last Admin: 02/08/24 17:37 Dose: 650 mg Aspirin (Aspirin 81 Mg) 81 mg PO DAILY [facility] Last Admin: 02/11/24 08:01 Dose: 81 mg Atorvastatin Calcium (Atorvastatin 10 Mg Tab) 10 mg PO DAILY [facility] Last Admin: 02/11/24 08:01 Dose: 10 mg Cyclobenzaprine HCl (Cyclobenzaprine 10 Mg Tab) 10 mg PO TID PRN PRN Reason: Muscle Spasm/RESTLESS LEGS Last Admin: 02/10/24 20:04 Dose: 10 mg Enoxaparin Sodium (Enoxaparin 40 Mg/0.4 Ml Syringe) 40 mg SQ DAILY [facility] Last Admin: 02/11/24 08:01 Dose: 40 mg Lactobacillus Acidophilus (Lactobacillus Acidophilus/Pect 1 Each Capsule) 1 each PO DAILY [facility] Last Admin: 02/11/24 08:01 Dose: 1 each Losartan Potassium (Losartan 25 Mg Tab) 25 mg PO DAILY [facility] Last Admin: 02/11/24 08:01 Dose: 25 mg Naloxone HCl (Naloxone 0.4 Mg/Ml 1 Ml Vial) 0.2 mg IV Q2M PRN PRN Reason: Opioid Reversal Senna (Sennosides 8.6 Mg Tab) 8.6 mg PO DAILY PRN PRN Reason: Constipation Sodium Chloride (Sodium Chloride Tab 1 Gm Tab) 1 gm PO TID [facility] Last Admin: 02/11/24 07:47 Dose: Not Given Tamsulosin HCl (Tamsulosin 0.4 Mg Cap.Er.24h) 0.4 mg PO PC-SUPPER [facility] Last Admin: 02/10/24 17:10 Dose: 0.4 mg Social history: Does not smoke or drink alcohol. Retired from [employer] Physical examination: VITAL SIGNS: 98.2, 96, 16, 107/68, 98% room air GENERAL: Resting in bed, comfortable EYES: Pupils equal. Conjunctiva huang l. HEENT: External appearance of nose and ears normal, oral cavity grossly normal. NECK: JVD not raised; masses not palpable. HEART: First and second heart sounds are normal; no edema. LUNGS: Respiratory rate normal; clear to auscultation. ABDOMEN: Soft, nontender, liver spleen not palpable, no masses palpable. Shin catheter PSYCH: Alert and oriented x3; mood and affect huang l. MUSCULOSKELETAL:No Clubbing/cyanosis;muscles-grossly intact. OA INVESTIGATIONS, reviewed in the clinical context: February 10: Sodium 128 February 09: Sodium 122 February 08: Sodium 121 potassium 4.3 TSH 0.896 urine osmolality 379 urine random sodium 136 February 08, 2024: Sodium 118 potassium 4.4 BUN 10 creatinine 0.49 sodium 12.3 hemoglobin 11.4 platelets 455 UA: Negative Assessment and plan: -Severe hyponatremia, hypoosmolar-possible euvolemic from increased water intake: Improving Fluid restriction. 1500 cc a day. Saline discontinued Sodium chloride tablets 1 tablet 3 times daily 1 dose of Samsca ordered Nephrology following -Acute severe urine retention from bladder outflow obstruction. Shin catheter was placed in the ER. About 2000 cc urine was obtained. Add Flomax 0.4 mg nightly. Seen by Dr. Escamilla. Follow-up outpatient 1 week -Primary osteoarthritis. Patient underwent hip surgery with Dr. Max on January 22. -Suspect BPH causing outflow obstruction -Essential hypertension Cozaar 25 mg a day. -Hyperlipidemia Lipitor 10 mg a day -Recent UTI. Patient received a course of antibiotic for 4 days then Bactrim for last 7 days. Currently UA is unremarkable. Will hold off antibiotics -Full code Current to current treatment plan. Past Medical History Past Medical History: Cancer, Hypertension Additional Past Medical History / Comment(s): Pulmonary adenocarcinoma. CLL-2019-no tx yet, just being monitored History of Any Multi-Drug Resistant Organisms: None Reported Past Surgical History: Hernia Repair, Joint Replacement Additional Past Surgical History / Comment(s): LEFT CATARACT SURGERY WITH IMPLANTS, HERNIA X2, total right knee, COLONOSCOPY, RUL resection 01/2023, Total left hip Past Anesthesia/Blood Transfusion Reactions: No Reported Reaction Additional Past Anesthesia/Blood Transfusion Reaction / Comment(s): had hiccups intermittently for a few weeks after carpal tunnel surg. Past Psychological History: No Psychological Hx Reported Smoking Status: Never smoker Past Alcohol Use History: None Reported Past Drug Use History: None Reported
--- NOTE | 2024-02-11 13:00 | P.PN ---
Subjective Patient is seen for follow-up for hyponatremia. Status post normal saline with initial improvement in serum sodium from 118-122. Sodium did not not improve further and normal saline was discontinued. sodium improved to 128 today. Status post Samsca last night. No significant complaints today. Tolerating oral intake. Objective - Vital Signs Vital signs: Vital Signs Temp 98.2 F 02/11/24 07:56 Pulse 75 02/11/24 11:02 Resp 16 02/11/24 11:02 BP 111/72 02/11/24 11:02 Pulse Ox 97 02/11/24 11:02 FiO2 Intake & Output 02/10/24 02/11/24 02/11/24 18:59 06:59 18:59 Intake Total 1318 120 Output Total 1450 3100 325 Balance -132 -3100 -205 Weight 78.6 kg Intake: Oral 1318 120 Output: Urine 1450 3100 325 Other: Voiding Method Indwelling Catheter Indwelling Catheter Indwelling Catheter - Exam patient is awake, comfortable, no acute distress. Examination of the heart S1 and S2 Examination of the lungs bilateral breath sounds are heard Abdomen is soft nontender Examination of lower extremities shows no significant edema [employer] exam grossly intact - Labs CBC & Chem 7: 02/08/24 13:23 02/11/24 06:27 Labs: Abnormal Lab Results - Last 24 Hours (Table) 02/10/24 02/11/24 Range/Units 14:48 06:27 Sodium 122 L 128 L (137-145) mmol/L Assessment and Plan Assessment: 1. Hyponatremia. Acute on chronic. Appears euvolemic, possibly hypovolemic on initial admission. Improved with normal saline with no further improvement in sodium after hypovolemic component was corrected. Urinary retention most likely adding to hyponatremia as well. sodium improved from 118-122 and did not not improve further. Saline is now discontinued. Urine osmolality 376; urine sodium 36. sodium improved to 128 post Samsca last night. 2. Urinary retention. Currently with Shin catheter - initial output 2000 cc. Maintained on Flomax. Monitor for post obstructive diuresis. Urine output 2.3 L for 24 hours. 3. Status post left hip arthroplasty. 4. Recent UTI? On antibiotics. Current UA is unremarkable. Plan: continue off of IV fluids. continue Flomax Repeat sodium this afternoon Hold sodium chloride tabs for now. Continue with fluid restriction.
[2024-02-11 16:09] LABS: African American GFR (CKD) >90 (>60 ml/min/1.73 sqM); Anion Gap 4 mmol/L; Blood Urea Nitrogen 14 mg/dL (9-20); Calcium 9.1 mg/dL (8.4-10.2); Carbon Dioxide 31 mmol/L (22-30); Chloride 93 mmol/L (98-107); Glucose 121 mg/dL (74-99); Non-African American GFR(CKD) >90 (>60 ml/min/1.73 sqM); Potassium 4.6 mmol/L (3.5-5.1); Sodium 128 mmol/L (137-145)
[2024-02-11 22:24] VITALS: TEMP 98.2
[2024-02-12 07:59] LABS: African American GFR (CKD) >90 (>60 ml/min/1.73 sqM); Anion Gap 4 mmol/L; Blood Urea Nitrogen 14 mg/dL (9-20); Calcium 9.2 mg/dL (8.4-10.2); Carbon Dioxide 31 mmol/L (22-30); Chloride 93 mmol/L (98-107); Glucose 98 mg/dL (74-99); Non-African American GFR(CKD) >90 (>60 ml/min/1.73 sqM); Potassium 4.4 mmol/L (3.5-5.1); Sodium 128 mmol/L (137-145)
[2024-02-12] MEDS: TOLVAPTAN 15 MG TABLET PO ONE (11:19)
--- NOTE | 2024-02-12 12:20 | P.PN ---
Subjective Progress Note Date: 02/12/24 Patient is seen for follow-up for hyponatremia. Status post normal saline with initial improvement in serum sodium from 118-122. Sodium did not not improve further and normal saline was discontinued. Sodium chloride tablets were discontinued. Samsca was given and sodium improved to 128. Sodium remains at 128 today. No significant complaints today. Tolerating oral intake. Objective - Vital Signs Vital signs: Vital Signs Temp 98.2 F 02/11/24 20:50 Pulse 74 02/12/24 04:45 Resp 16 02/12/24 04:45 BP 121/66 02/12/24 04:45 Pulse Ox 99 02/12/24 04:45 FiO2 Intake & Output 02/11/24 02/12/24 02/12/24 18:59 06:59 18:59 Intake Total 480 Output Total 325 900 Balance 155 -900 Weight 78.6 kg Intake: Oral 480 Output: Gastric Drainage 0 Urine 325 900 Stool 0 Urine/Stool Mix 0 Emesis 0 Oral Regurgitation 0 Other 0 Other: Voiding Method Indwelling Catheter Indwelling Catheter # Voids 0 # Bowel Movements 0 - Exam Vital signs are stable. General: No acute distress. HEENT: Head exam is unremarkable. Lungs: Bilateral breath sounds present; no rhonchi, wheezes, or rales. Heart: Rate and rhythm are regular. Abdomen: Nontender. Extremities: No edema present. - Labs CBC & Chem 7: 02/08/24 13:23 02/12/24 07:07 Labs: Abnormal Lab Results - Last 24 Hours (Table) 02/11/24 02/12/24 Range/Units 15:11 07:07 Sodium 128 L 128 L (137-145) mmol/L Chloride 93 L 93 L (98-107) mmol/L Carbon Dioxide 31 H 31 H (22-30) mmol/L Creatinine 0.50 L 0.42 L (0.66-1.25) mg/dL Glucose 121 H (74-99) mg/dL Assessment and Plan Assessment: 1. Hyponatremia. Acute on chronic. Appears euvolemic, possibly hypovolemic. Improved with normal saline with no further improvement in sodium after hypovolemic component was corrected. Urinary retention most likely adding to hyponatremia as well. Sodium improved from 118-122 and did not not improve further. Saline is now discontinued. Urine osmolality 376; urine sodium 36. sodium improved to 128 post Samsca. 2. Urinary retention. Currently with Shin catheter - initial output 2000 cc. Maintained on Flomax. Monitor for post obstructive diuresis. Urine output 1.2 L for 24 hours. 3. Status post left hip arthroplasty. 4. Recent UTI? On antibiotics. Current UA is unremarkable. Plan: Continue off of IV fluids. Repeat Samsca today. Continue Flomax. Repeat labs. Continue with fluid restriction. possible discharge today based on repeat sodium. Patient is seen and examined. Agree with resident's findings, assessment and plan
[2024-02-12 15:53] VITALS: RESP 16
[2024-02-12 16:49] VITALS: BP 100/61; PULSE 78
--- NOTE | 2024-02-12 18:26 | P.DS ---
Providers Date of admission: 02/08/24 14:35 Expected date of discharge: 02/12/24 Attending physician: Harish Dasilva Consults: 02/08/24 14:34 Consult Physician Routine Consulting Provider: Lisa Whittaker Consult Reason/Comments: hyponatremia Do you want consulting provider notified?: Yes 02/08/24 14:37 Consult Physician Routine Consulting Provider: Lenny Escamilla Consult Reason/Comments: urinary reten Do you want consulting provider notified?: Yes Primary care physician: Luis Carlos Jerome [facility] Course: Chief Complaint: Week This is a pleasant 73-year-old patient who follows with Dr. Rachid Jerome. Chronic stable medical conditions include CLL, hypertension, hyperlipidemia, right upper lung lobe removed for pulmonary adenocarcinoma. Patient on January 26 was diagnosed with a UTI initially given an antibiotic for 4 days and switched over to Bactrim for the last 7 days. Patient on January 22 underwent hip surgery by Dr. Max. Patient been having small amounts of urine output frequently. Getting weak and tired. In the ER patient found to have a rather large distended bladder. Shin catheter was placed. About 2000 cc of urine was obtained. Denies any fever and chills. February 08: Patient seen this morning. Otherwise comfortable. Shin catheter in place. Seen by Dr. Escamilla from urology. Recommends to keep the cath in for at least a week. Follow-up outpatient. Fluid restriction. Sodium remains low. Serum osmolality came back low and urine sodium came back low. Getting saline at 75 cc an hour. February 09: Sitting up in a chair. Fluid restriction. Sodium tablets added. Sodium remains low at 122. Patient told to cut back on free fluids. He is eating better. Given 1 dose of Samsca by nephrology. February 10: Remains on fluid restriction. Salt tablets added yesterday. Sodium 128 today. Eating fair. February 11: Repeat sodium up to 131. Will be discharged. On fluid restriction. Follow-up with Dr. Whittaker outpatient. Discussed. Also follow-up with urology outpatient. Keep Shin in. Social history: Does not smoke or drink alcohol. Retired from [employer] Physical examination: VITAL SIGNS: 78, 16, 100/61, 96% room air GENERAL: Resting in bed, comfortable EYES: Pupils equal. Conjunctiva huang l. HEENT: External appearance of nose and ears normal, oral cavity grossly normal. NECK: JVD not raised; masses not palpable. HEART: First and second heart sounds are normal; no edema. LUNGS: Respiratory rate normal; clear to auscultation. ABDOMEN: Soft, nontender, liver spleen not palpable, no masses palpable. Shin catheter PSYCH: Alert and oriented x3; mood and affect huang l. MUSCULOSKELETAL:No Clubbing/cyanosis;muscles-grossly intact. OA INVESTIGATIONS, reviewed in the clinical context: February 10: Sodium 128 February 09: Sodium 122 February 08: Sodium 121 potassium 4.3 TSH 0.896 urine osmolality 379 urine random sodium 136 February 08, 2024: Sodium 118 potassium 4.4 BUN 10 creatinine 0.49 sodium 12.3 hemoglobin 11.4 platelets 455 UA: Negative Assessment and plan: -Severe hyponatremia, hypoosmolar-possible euvolemic from increased water intake: Improving Received Samsca and sodium tablets. Follow-up with Dr. Whittaker outpatient. Fluid restriction to continue -Acute severe urine retention from bladder outflow obstruction. Shin catheter was placed in the ER. About 2000 cc urine was obtained. Flomax 0.4 mg nightly. Seen by Dr. Escamilla. Follow-up outpatient 1 week -Primary osteoarthritis. Patient underwent hip surgery with Dr. Max on January 22. -Suspect BPH causing outflow obstruction -Essential hypertension Cozaar 25 mg a day. -Hyperlipidemia Lipitor 10 mg a day -Recent UTI. Patient received a course of antibiotic for 4 days then Bactrim for last 7 days. Currently UA is unremarkable. Will hold off antibiotics -Full code Disposition: Home Past Medical History Past Medical History: Cancer, Hypertension Additional Past Medical History / Comment(s): Pulmonary adenocarcinoma. -2019-no tx yet, just being monitored History of Any Multi-Drug Resistant Organisms: None Reported Past Surgical History: Hernia Repair, Joint Replacement Additional Past Surgical History / Comment(s): LEFT CATARACT SURGERY WITH I MPLANTS, HERNIA X2, total right knee, COLONOSCOPY, RUL resection 01/2023, Total left hip Past Anesthesia/Blood Transfusion Reactions: No Reported Reaction Additional Past Anesthesia/Blood Transfusion Reaction / Comment(s): had hiccups intermittently for a few weeks after carpal tunnel surg. Past Psychological History: No Psychological Hx Reported Smoking Status: Never smoker Past Alcohol Use History: None Reported Past Drug Use History: None Reported Plan - Discharge Summary Discharge Rx Participant: No New Discharge Prescriptions: New Aspirin 81 mg PO DAILY tab Tamsulosin [Flomax] 0.4 mg PO PC-SUPPER #30 cap Continue Atorvastatin [Lipitor] 10 mg PO DAILY HYDROcodone/APAP 7.5-325MG [[place]ilo 7.5-325] 1 - 2 tab PO Q6H PRN #32 tab PRN Reason: Pain Sennosides [Senokot] 2 tab PO DAILY PRN #60 tablet PRN Reason: Constipation Losartan [Cozaar] 25 mg PO DAILY Cyclobenzaprine [Flexeril] 10 mg PO TID PRN PRN Reason: Muscle Spasm/RESTLESS LEGS Fluticasone Nasal [place] [Flonase Nasal [place]] 2 spray EA NOSTRIL DAILY PRN PRN Reason: allergies L.acidoph,Paracasei, B.lactis [Probiotic] 1 cap PO DAILY Acetaminophen [Acetaminophen 8 hr] 650 mg PO Q8H PRN PRN Reason: Pain Discontinued Aspirin 325 mg PO BID #60 tab Docusate [Colace] 300 mg PO DAILY Sulfamethox-Tmp 800-160Mg [Bactrim DS 800-160 mg] 1 tab PO Q12HR Discharge Medication List Fluticasone Nasal [place] [Flonase Nasal [place]] 2 spray EA NOSTRIL DAILY PRN 01/24/23 [History] Acetaminophen [Acetaminophen 8 hr] 650 mg PO Q8H PRN 01/03/24 [History] L.acidoph,Paracasei, B.lactis [Probiotic] 1 cap PO DAILY 01/03/24 [History] Atorvastatin [Lipitor] 10 mg PO DAILY 01/16/24 [History] HYDROcodone/APAP 7.5-325MG [[place]ilo 7.5-325] 1 - 2 tab PO Q6H PRN #32 tab 01/23/24 [Rx] Sennosides [Senokot] 2 tab PO DAILY PRN #60 tablet 01/23/24 [Rx] Cyclobenzaprine [Flexeril] 10 mg PO TID PRN 02/08/24 [History] Losartan [Cozaar] 25 mg PO DAILY 02/08/24 [History] Aspirin 81 mg PO DAILY tab 02/12/24 [Rx] Tamsulosin [Flomax] 0.4 mg PO PC-SUPPER #30 cap 02/12/24 [Rx] Follow up Appointment(s)/Referral(s): Lisa Whittaker MD [STAFF PHYSICIAN] - 2 Weeks [facility], [NON-STAFF] - 1-2 Days (home care will call to set up scheudle any questions please call agency) Luis Carlos Jerome MD [Primary Care Provider] - 1-2 days Lenny Escamilla MD [STAFF PHYSICIAN] - 1 Week Activity/Diet/Wound Care/Special Instructions: follow up labs 3-4 days fluid restrict 1800 cc/day
== END 2024-02-12 19:21 | disposition home or self-care (01) | DRG 641 ==
LOC: EC 13:02 → 3SCARD 14:35
PROVIDERS: ADMIT Hospitalist; ATTEND Hospitalist
DX: E87.1 Hypo-osmolality and hyponatremia (principal); C91.10 Chronic lymphocytic leukemia of B-cell type not having achieved remission; N39.0 Urinary tract infection, site not specified; E78.5 Hyperlipidemia, unspecified; I10 Essential (primary) hypertension; N40.0 Benign prostatic hyperplasia without lower urinary tract symptoms; M19.91 Primary osteoarthritis, unspecified site; N32.0 Bladder-neck obstruction; Z96.642 Presence of left artificial hip joint; Z79.82 Long term (current) use of aspirin; Z79.899 Other long term (current) drug therapy; Z85.118 Personal history of other malignant neoplasm of bronchus and lung; Z87.440 Personal history of urinary (tract) infections; Z98.42 Cataract extraction status, left eye
CPT/HCPCS: 36415; 51702; 80048; 81003; 82533; 83935; 84295; 84300; 84443; 85025; 99285

== ENCOUNTER 2024-02-28 19:30 | Outpatient (CLI) | payer MEDICARE ==
--- NOTE | 2024-04-03 12:13 | SLS ---
SLEEP STUDY STUDY: CPAP titration report. HISTORY: A 73-year-old male patient, known history of lung cancer, previous history of CLL and hypertension, was also diagnosed having obstructive sleep apnea severe with an AHI of 38.4. The patient is coming in for a CPAP titration study. PERTINENT PHYSICAL FINDINGS: Height is 5 feet and 10 inches, weight is 179 pounds with a body mass index of 25.7. TECHNICAL DESCRIPTION: The patient underwent the usual polysomnography. In addition, CPAP titration was performed where the pressure was gradually increased by increments of 1 cm to eliminate the obstructive respiratory events. SLEEP CHARACTERISTICS: The total recording duration was 432.5 minutes. The total sleep time was 305 minutes. Overall sleep efficiency was 70%. Latency to sleep onset was 9 minutes. Latency to REM sleep was 100 minutes. The sleep architecture was characterized by 14.3% stage I, 55.9% stage II, 3.8% stage III, 26.1% REM sleep. CPAP TITRATION STUDY: CPAP titration was initiated. Initially, at the pressure of 5 cm of water and pressure was increased by increments of 1 cm to reach a maximum CPAP pressure of 12 cm of water. The patient was also trialed on BiPAP at a pressure of 14/10 and 15/11 cm of water. I carefully reviewed the CPAP titration taking into account the patient's sleep stage and body position. Note that the patient was still having obstructive apneas at the various CPAP pressures used. Obstructive respiratory events improved while being on a BiPAP and the target BiPAP pressures that was achieved was 15/11 cm of water. There was improvement in oxygenation without any major desaturations and a target BiPAP pressure of 15/11 cm of water. PERIODIC LIMB MOVEMENT ACTIVITY: No significant periodic limb movement activity was noted. CARDIAC SUMMARY: Average heart rate was 69 with a minimum heart rate of 39 and a maximum heart rate 119. The cardiac rhythm was sinus. ASSESSMENT: 1. Severe obstructive sleep apnea with an AHI of 38.4. The patient underwent a titration, failed CPAP therapy due to residual obstructive events and subsequently switched to a BiPAP. Treatment and titration were successful. All sleep stages were encountered. 2. Stage 3 pulmonary adenocarcinoma. 3. CLL. 4. Hypertension. PLAN: Initiate BiPAP therapy at a pressure of 15/11 cm of water. The patient will be offered a medium-size AirFit F20 full-face mask. The patient will see me back in the office in 30 to 90 days to assess clinical response and compliancy. We will continue to follow. MMODL / IJN: [id number] /
== END 2024-02-29 06:00 | disposition home or self-care (01) ==
LOC: 3 N SLEEP 19:30
PROVIDERS: ATTEND Internal Medicine Critical Care Medicine
CPT/HCPCS: 95811

== ENCOUNTER 2024-03-13 07:29 | Day surgery (SDC) | payer MEDICARE ==
[2024-03-13] MEDS ORDERED: LIDOCAINE 1% (10MG/ML) FOR IV START INTRADERMA PRN (07:58)
[2024-03-13 08:09] VITALS: TEMP 97.7
[2024-03-13] MEDS: IV FLUID CONTINUATION 1,000 ML IV ONE ×2 (08:22→08:28)
[2024-03-13] MEDS: LACTATED RINGERS 1,000 ML IV SCH (08:22)
[2024-03-13] MEDS ORDERED: LIDOCAINE 2% (PF) 20 MG/ML 5 ML VIAL ONE (08:30)
[2024-03-13] MEDS ORDERED: PROPOFOL 10 MG/ML 20 ML VIAL IV ONE (08:30)
--- NOTE | 2024-03-13 09:02 | P.PCN ---
Date of Procedure: 03/13/24 Procedure(s) Performed: Brief history: Patient is a 74-year-old pleasant white male scheduled for an elective upper endoscopy as well as colonoscopy as a part of evaluation of chronic cough for the last 3 years duration. Scheduled for a colonoscopy as a part of screening for colorectal neoplasia and family history of colon cancer. His mother was diagnosed with colon cancer at age 60 Procedure performed: Esophagogastroduodenoscopy biopsy Colonoscopy with snare polypectomy Preoperative diagnosis: GERD/chronic cough Screening for colon cancer/family history of colon cancer Anesthesia: MAC Procedure: After informed consent was obtained from the patient was brought into the endoscopy unit and IV sedation was administered by anesthesia under continuous monitoring. Initially upper endoscopy was done. The Olympus GF 160 video endoscope was inserted inserted into the mouth and esophagus intubated without any difficulty and was gradually advanced into the stomach and duodenum and carefully examined. The bulb and second part of the duodenum had multiple superficial erosions and ulcerations and biopsies were done from this area. The scope was then withdrawn into the stomach adequately insufflated with air and upon careful examination the antrum diffuse gastritis and biopsies were done f rom this area. Mucosa of the body, cardia and fundus appeared normal. Along the lesser curvature there was a 6 to 7 mm polyp/submucosal nodule that was biopsied. The scope was then withdrawn into the esophagus. The GE junction was located at 40 cm to the incisors. It appeared regular with no erythema erosions or ulcerations. Rest of the esophagus appeared normal. Patient tolerated the procedure well. At this time the patient continued to remain sedation. Initial digital rectal examination was normal. Olympus CF 160 video colonoscope was then inserted into the rectum and gradually advanced to the cecum without any difficulty. Careful examination was performed as the scope was gradually being withdrawn. The prep was poor in several areas of the colon. In the base of the cecum there was a 1 cm flat polyp removed by snare polypectomy.. The cecum, ascending colon, transverse colon, descending colon, sigmoid colon and rectum appeared normal. Prep of poor in several areas of the colon but thyroidization was performed. Retroflexion was performed in the rectum and no lesions were noted. Patient tolerated the procedure well. Impression: 1. Upper endoscopy revealed multiple superficial duodenal erosions and superficial ulcerations, antral gastritis and LA grade a reflux esophagitis. 5 mm gastric polyp along the lesser curvature s/p biopsy 2. Colonoscopy revealed 1 cm flat cecal polyp status post snare polypectomy and the rest of the colon appeared normal Recommendations: Findings of this examination were discussed with the patient as well as his family. He was advised to follow-up with the biopsy results. If biopsy of the colon polyp reveals adenoma he can have repeat colonoscopy in 3 years. Recommend Prilosec 20 mg daily and he was briefly dictated about antireflux measures.
[2024-03-13 09:29] VITALS: BP 124/83; PULSE 68; RESP 16
== END 2024-03-13 09:57 | disposition home or self-care (01) ==
LOC: ORWHC2ENDO 07:29
PROVIDERS: ATTEND Internal Medicine Gastroenterology
DX: Z12.11 Encounter for screening for malignant neoplasm of colon (principal); D12.0 Benign neoplasm of cecum; K21.00 Gastro-esophageal reflux disease with esophagitis, without bleeding; K26.9 Duodenal ulcer, unspecified as acute or chronic, without hemorrhage or perforation; K29.50 Unspecified chronic gastritis without bleeding; K29.80 Duodenitis without bleeding; K31.7 Polyp of stomach and duodenum; I10 Essential (primary) hypertension; E78.5 Hyperlipidemia, unspecified; Z85.118 Personal history of other malignant neoplasm of bronchus and lung; Z79.899 Other long term (current) drug therapy; Z80.0 Family history of malignant neoplasm of digestive organs; Z79.82 Long term (current) use of aspirin; Z98.890 Other specified postprocedural states
CPT/HCPCS: 43239; 45385; 88305; 88341; 88342

== ENCOUNTER → 2024-04-29 | Outpatient (CLI) | payer MEDICARE ==
[2024-04-29 09:01] VITALS: BP 111/72; PULSE 67; RESP 18
--- NOTE | 2024-04-29 09:49 | XR ---
EXAM TYPE: LUMBAR SPINE X RAY SERIES COMPARISON: NONE HISTORY: Pain TECHNIQUE: 4 views are submitted. FINDINGS: Diffuse demineralization multilevel severe degenerative disc disease. Multilevel compression deformit ies of lower thoracic spine and lower lumbar spine. Grade 1 anterolisthesis L4-L5 and L5-S1. Multilevel facet arthropathy and foraminal protrusion. Multilevel severe degenerative disc disease. N onspecific soft tissue calcifications are noted. Nonspecific sclerosis of the L3 vertebral segment. IMPRESSION: 1. Severe osteopenia with multilevel vertebral compression deformities/fractures of indeterminate age . Recommend follow-up bone scan or MRI. 2. Multilevel severe degenerative disc disease, facet arthropathy and suspected foraminal encroachmen t. [facility], , 04/29/2024 9:47 AM
--- NOTE | 2024-04-29 14:49 | P.PAINPG ---
PQRS Measure Charge Sheet Comment: HISTORY OF PRESENT ILLNESS: A 74 yr old male w female rn obgyn at side as a referral from Dr Jerome presents today w severe and chronic LBP > 1 yr secondary to radiculopathy, spondylosis and facet arthropathy without myelopathy for evaluation. Pt states pain level is provoked at 6 /10 in intensity, constant, localized in the lower lumbar spine, predominantly axial, dull in character w occasional shooting pain towards the L hip. Pain is provoked by over activity. Pain is alleviated by PT x 6 wks which ended in Mar 2024, physician guided home stretches daily since Mar 2024, heat, ice, medications (Tyl Arth), use of a cane for ambulatory assistance, repositioning and rest . PMH: OA, HTN, GERD, Pulmonary Adenocarcinoma, CLL (2018), BPH, Vitamin D Deficiency PSH: Hernia Repair x2 (2006, 2015), R Total Knee Replacement, L Total Hip Replacement (2023), L Cataract Extraction w Implants, Colonoscopy, RUL Lobectomy (2022) SH: Negative x3 FH: Fa- Ca. Mo- CA All: See list Meds: See list REVIEW OF ORGAN SYSTEMS: CONSTITUTIONAL: No fevers or chills. No recent weight loss. NEUROLOGICAL: + numbness and tingling along the distal extremities. No seizure disorders or headaches. MUSCULOSKELETAL: + pain PSYCHIATRIC: Denies current depression or suicidal thoughts. Physical Examinations : Constitutional : Cooperative , not in acute distress . Neurologic : Cranial nerve II to XII intact. No focal neurological deficits. Psychiatric : alert & oriented x 3. Matching mood & appropriate affect. Judgment & insight intact. Musculoskeletal : Cervical Spine Motor strength in the deltoid and biceps: Normal right side. Normal Left side Motor strength biceps and the wrist extensors: Normal right side . Normal left side Motor strength in the triceps muscle: Normal right side. Normal left side Deep tendon reflexes: Normal at the biceps. Normal at Brachioradialis. Normal at triceps Vertebral body tenderness to deep palpation over Cervical facet loading test: positive bilaterally Spurling test: positive bilaterally Neck distraction test: positive bilaterally Ari sign: positive bilaterally Lumbar spine Motor strength lower extremities ,thigh and legs 5/5 Right side , 5/5 Left side Deep tendon reflexes : Normal Knee Jerk. Normal Ankle Jerk Vertebral body tenderness over L5 Kessler Test positive L L5 Lumbar facet Loading Test: positive Right / positive Left Range of motion of the lumbar spine Flexion 30 degrees, extension 10 degrees Straight Leg Raise test: Left/ Right positive at degrees Sirena test: positive right / positive left. Severe tenderness over the Sacroiliac joint on the Right / Left sides Gaenslen test: positive bilaterally Seated flexion test: positive bilaterally. Sacral spine : Severe tenderness over the Sacroiliac joint: right side / left side Range of motion: Flexion of the lumbar spine <60 degrees Range of motion: Extension of the lumbar spine <20 degrees Gaenslen's Test positive Sirena test: positive right side / left side Thigh Thrust Test Sacral Thrust Test Imaging: MRI non contrast lumbar spine from 06/04/2019 reviewed Assessment/ Plan : Lumbar radiculopathy Recommendation of lumbar x ray M54.16. All questions answered. I have spent greater than 30 minutes on patient care today. Dr Jackson was available by phone for the evaluation of this patient. The time was used to review the medical records including relevant urine studies and Prescription history (MAPs), review of the available imaging, evaluation and examination of the patient, coordination of care with the medical staff and if applicable referring physicians, as well as creation of the medical record PQRS Narrative: Smoking Status Never smoker Home Medications: Ambulatory Orders Fluticasone Nasal [place] [Flonase Nasal [place]] 2 spray EA NOSTRIL DAILY PRN 01/24/23 Acetaminophen [Acetaminophen 8 hr] 650 mg PO Q8H PRN 01/03/24 L.acidoph,Paracasei, B.lactis [Probiotic] 1 cap PO DAILY 01/03/24 Atorvastatin [Lipitor] 10 mg PO DAILY 01/16/24 HYDROcodone/APAP 7.5-325MG [[place] 7.5-325] 1 - 2 tab PO Q6H PRN #32 tab 01/23/24 Sennosides [Senokot] 2 tab PO DAILY PRN #60 tablet 01/23/24 Cyclobenzaprine [Flexeril] 10 mg PO TID PRN 02/08/24 Losartan [Cozaar] 25 mg PO DAILY 02/08/24 Aspirin 81 mg PO DAILY tab 02/12/24 Tamsulosin [Flomax] 0.4 mg PO PC-SUPPER #30 cap 02/12/24 Sodium Bicarbonate Tab 1 gm PO BID 03/13/24 Controlled Substance Measures - Controlled Substance Measures Is patient prescribed a controlled substance at discharge?: No
== END ==
LOC: PNWHC3 08:18
PROVIDERS: ATTEND Specialist
DX: M54.50 Low back pain, unspecified
CPT/HCPCS: 72100; 99202

== ENCOUNTER → 2024-05-03 | Outpatient (CLI) | payer MEDICARE ==
--- NOTE | 2024-05-03 23:30 | MR ---
EXAMINATION TYPE: MR lumbar spine wo con DATE OF EXAM: 05/03/2024 COMPARISON: None HISTORY: Low back pain that radiates into left buttock. CONTRAST: 0 mL intravenous Gadavist. TECHNIQUE: Multiplanar, multisequence images of the lumbar spine were acquired. FINDINGS: Cord ends at the L1-L2 level. L5-S1: Minimal grade 1 spondylolisthesis is present. Disc uncovering is present with minimal anterior thecal sac contact. No AP spinal canal stenosis is present. Facet hypertrophy is present. Moderate t o severe bilateral foraminal narrowing is present. L4-L5: No significant disc bulge or disc herniation. No spinal canal stenosis is present. Severe bila teral foraminal narrowing is present. Facet hypertrophy and ligamentum flavum laxity is present. L3-L4: No focal disc herniation or significant disc bulge. No spinal canal stenosis present. Moderate right and severe left foraminal stenosis is present. L2-L3: Subtle retrolisthesis of L2 on L3 is present. Disc uncovering is mild anterior thecal sac comp ression. Facet hypertrophy and ligamentum flavum laxity of posterior lateral thecal sac compression. Mild canal narrowing may be present to the level. Severe left and moderate to severe right foraminal narrowing is present L1-L2: Broad-based disc bulge is present with anterior thecal sac compression. This may be minimally greater in the left paracentral region. No AP spinal canal stenosis present. Facet hypertrophy is pre sent. Severe right and moderate to severe left foraminal narrowing is present T12-L1: No significant disc bulge or disc herniation. No spinal canal stenosis. Neural foramen are patent. T11-T12: No significant disc bulge or disc herniation. No spinal canal stenosis. Neural foramen are patent. There is heterogenous signal through the T12 vertebral body. Correlate for metastatic disease. Some m ild endplate changes may be present. Some mild posterior superior endplate displacement into the spin al canal may be present. Compression deformity of L3 is evident. Limbus vertebra may be present no retropulsion evident. Some compression deformity of L5 and possibly L4 is present no retropulsion evident. IMPRESSION: 1. Heterogenous signal with compression changes. Correlate for metastatic disease. There is some mild retropulsion without spinal canal stenosis from the superior endplate. 2. Additional compression deformities L3 L5 and along the superior endplate of L4 without retropulsio n. 3. Multilevel severe foraminal stenosis is maybe greatest bilaterally at L4-5 and on the left L3-4 an d on the right at L2-3 [facility], Workstation: [email or web address], 05/03/2024 11:28 PM
== END | disposition home or self-care (01) ==
LOC: RADMRIMAIN 16:26
PROVIDERS: ATTEND Specialist
CPT/HCPCS: 72148

== ENCOUNTER → 2024-05-13 | Outpatient (CLI) | payer MEDICARE ==
[2024-05-13 09:17] VITALS: BP 132/81; PULSE 68; RESP 17; TEMP 98
--- NOTE | 2024-05-15 07:52 | P.PAINPG ---
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 Pt states pain level is provoked at 5-6 /10 in intensity, constant, localized in the lower lumbar spine, predominantly axial, throbbing in character w occasional shooting pain towards the L hip. Pain is provoked by over activity. Pain is alleviated by PT x 6 wks which ended in Mar 2024, physician guided home stretches daily since Mar 2024, heat, ice, medications, use of a cane for ambulatory assistance, repositioning and rest . Interventional procedures include Medications include Tyl Arth REVIEW OF ORGAN SYSTEMS: CONSTITUTIONAL: No fevers or chills. No recent weight loss. NEUROLOGICAL: + numbness and tingling along the distal extremities. No seizure disorders or headaches. MUSCULOSKELETAL: + pain PSYCHIATRIC: Denies current depression or suicidal thoughts. Physical Examinations : Constitutional : Cooperative , not in acute distress . Neurologic : Cranial nerve II to XII intact. No focal neurological deficits. Psychiatric : alert & oriented x 3. Matching mood & appropriate affect. Judgment & insight intact. Musculoskeletal : Cervical Spine Motor strength in the deltoid and biceps: Normal right side. Normal Left side Motor strength biceps and the wrist extensors: Normal right side . Normal left side Motor strength in the triceps muscle: Normal right side. Normal left side Deep tendon reflexes: Normal at the biceps. Normal at Brachioradialis. Normal at triceps Vertebral body tenderness to deep palpation over Cervical facet loading test: positive bilaterally Spurling test: positive bilaterally Neck distraction test: positive bilaterally Ari sign: positive bilaterally Lumbar spine Motor strength lower extremities ,thigh and legs 5/5 Right side , 5/5 Left side Deep tendon reflexes : Normal Knee Jerk. Normal Ankle Jerk Vertebral body tenderness over L5 Kessler Test positive L L5 Lumbar facet Loading Test: positive Right / positive Left L3-L4/ L4-L5 Range of motion of the lumbar spine Flexion 30 degrees, extension 10 degrees Straight Leg Raise test: Left/ Right positive at degrees Sirena test: positive right / positive left. Severe tenderness over the Sacroiliac joint on the Right / Left sides Gaenslen test: positive bilaterally Seated flexion test: positive bilaterally. Sacral spine : Severe tenderness over the Sacroiliac joint: right side / left side Range of motion: Flexion of the lumbar spine <60 degrees Range of motion: Extension of the lumbar spine <20 degrees Gaenslen's Test positive Sirena test: positive right side / left side Thigh Thrust Test Sacral Thrust Test Imaging: MRI non contrast lumbar spine from 05/03/24 reviewed Assessment/ Plan : Lumbar radiculopathy, R L2-L3/ L L3-L4/ BL L4-L5 neuroforaminal stenoses Recommendation of BL MBB L3-L4/ L4-L5 #1. Risks, benefits of procedure discussed and pt verbalized understanding. Protocol for discontinuation/ continuation of medications yanely procedure discussed. Minimal anesthesia including Fentanyl and Versed if clinically indicated. All questions answered. I have spent greater than 30 minutes on patient care today. Dr Jackson was available by phone for the evaluation of this patient. The time was used to review the medical records including relevant urine studies and Prescription history (MAPs), review of the available imaging, evaluation and examination of the patient, coordination of care with the medical staff and if applicable referring physicians, as well as creation of the medical record PQRS Narrative: Smoking Status Never smoker Narcotic Agreement Date Signed 04/29/24 Hx Alcohol Use (MH) No Home Medications: Ambulatory Orders Fluticasone Nasal [place] [Flonase Nasal [place]] 2 spray EA NOSTRIL DAILY PRN 01/24/23 Acetaminophen [Acetaminophen 8 hr] 650 mg PO Q8H PRN 01/03/24 L.acidoph,Paracasei, B.lactis [Probiotic] 1 cap PO DAILY 01/03/24 Atorvastatin [Lipitor] 10 mg PO DAILY 01/16/24 HYDROcodone/APAP 7.5-325MG [[place] 7.5-325] 1 - 2 tab PO Q6H PRN #32 tab 01/23/24 Sennosides [Senokot] 2 tab PO DAILY PRN #60 tablet 01/23/24 Cyclobenzaprine [Flexeril] 10 mg PO TID PRN 02/08/24 Losartan [Cozaar] 25 mg PO DAILY 02/08/24 Aspirin 81 mg PO DAILY tab 02/12/24 Tamsulosin [Flomax] 0.4 mg PO PC-SUPPER #30 cap 02/12/24 Sodium Bicarbonate Tab 1 gm PO BID 03/13/24 Controlled Substance Measures - Controlled Substance Measures Is patient prescribed a controlled substance at discharge?: No
== END ==
LOC: PNWHC3 08:58
PROVIDERS: ATTEND Specialist
DX: M47.26 Other spondylosis with radiculopathy, lumbar region (principal); M48.061 Spinal stenosis, lumbar region without neurogenic claudication
CPT/HCPCS: 99211

== ENCOUNTER 2024-06-04 07:00 | Day surgery (SDC) | payer MEDICARE ==
[2024-06-04] MEDS: IV FLUID CONTINUATION 1,000 ML IV ONE ×2 (07:15→08:47)
[2024-06-04 07:18] VITALS: RESP 16; TEMP 97.2
[2024-06-04] MEDS: LACTATED RINGERS 1,000 ML IV SCH (07:29)
[2024-06-04] MEDS ORDERED: MIDAZOLAM 2 MG/2 ML VIAL ONE (08:25)
[2024-06-04] MEDS ORDERED: ROPIVACAINE 5MG/ML 20ML VIAL ONE (08:25)
[2024-06-04] MEDS ORDERED: fentaNYL (PF) 50 MCG/ML 2 ML AMP ONE (08:25)
--- NOTE | 2024-06-04 08:44 | P.PCN ---
Date of Procedure: 06/04/24 Procedure(s) Performed: PREOPERATIVE DIAGNOSIS : 1- Lumbar spondylosis with Facet Arthropathy without myelopathy . 2- Lumber degenerative disc disease POSTOPERATIVE DIAGNOSIS: 1- Lumbar spondylosis with Facet Arthropathy without myelopathy . 2- Lumber degenerative disc disease PROCEDURE: Diagnostic bilateral L2 , L3 , L4 , medial branch block under fluoroscopy guidance(fluoroscopy images available in the radiology Department ) ( To target the facet joint between Bilateral L3-4 , L4-5 ) #1st ANESTHESIA: moderate sedation with intravenous Versed 1 mg and Fentanyl 50 mcg.(Sedation start at 08:25, ende at 08:40 ) EBL: Minimal COMPLICATION: None PROCEDURE INDICATION: Chronic low back pain secondary to Facet arthropathy unresponsive to conservative treatment. PROCEDURE DESCRIPTION: the patient was seen and identified in the preop holding area , risks and benefits and possible complications of the procedure and alternative were discussed with the patient, and the patient agreed to proceed with the procedure and signed the consent and vital signs monitored during the procedure and fluoroscopy was used to maximize the benefit and accuracy of the needle placement, and sedation was given to decrease patient an xiety, patient was taken to the procedure room and placed in prone position vital signs monitored in the back prepped with chlorhexidine X3 then under strict sterile technique using a right oblique fluoroscopy ,the junction of the transverse process and the superior articulating process of the right L2 , L3 , L4 vertebra which corresponding to the fluoroscopy image of the eye of the Mariano dog on the block side for the medial branches and subsequently , after local infiltration of skin and subcu tissuies with Ropivacaine 0.5 % , one mL at each level ,then 22-gauge Quincke-type needles , 3 needle was used , each one of them placed at the junction of the base of the transverse process and the superior articular process at the appropriate level, and the needle was advanced until the periosteum contacted, needle placement confirmed with AP oblique and lateral view and after appropriate needle placement confirmed, and after negative aspiration for heme and CSF and there was no paresthesia 1-1/2 mL of Ropivacaine 0.5% , then half mL injected at each level after negative aspiration the needle subsequently removed and the same procedure repeated for the left side at left side at L2, L3 , L4 levels. At the end of the procedure and the needles removed and a bandage applied after the skin was cleaned the cleaning solution patient taken to recovery room in stable condition and monitors in the recovery room for 20-30 minutes and discharged home in stable condition after discharge criteria met and patient will follow up with the pain clinic in 2-4 weeks
[2024-06-04 09:05] VITALS: BP 123/73; PULSE 61
--- NOTE | 2024-06-04 10:33 | FL ---
EXAMINATION TYPE: FL guided pain mgmt statistic DATE OF EXAM: 06/04/2024 8:52 AM COMPARISON: Pre Operative Images if available both CT/MRI or plain film CLINICAL INDICATION: Male, 74 years old with history of PAIN; TECHNIQUE: FL guided pain mgmt statistic, multiple fluoroscopic images provided for procedure. Total fluoroscopy time: 45.2 seconds Total submitted images to PACS: 4 DAP: 0.66051 mGym2 Gycm2 uGym2 cGycm2 or equivalent. FINDINGS: Fluoroscopic images during injection for pain management demonstrate multilevel degeneration changes throughout the spine. No evidence for fracture. No acute process identified. IMPRESSION: 1. No evidence for intraoperative complication. 2. Please see the operative/procedural note for further details. [facility], , 06/04/2024 10:31 AM
== END 2024-06-04 09:29 | disposition home or self-care (01) ==
LOC: ORPAIN 07:00
PROVIDERS: ATTEND Specialist
DX: M47.816 Spondylosis without myelopathy or radiculopathy, lumbar region (principal)
CPT/HCPCS: 64493; 64494 ×2; J2250; J3010; J2795; 99152

== ENCOUNTER → 2024-06-18 | Outpatient (CLI) | payer MEDICARE ==
[2024-06-18 10:41] LABS: African American GFR (CKD) >90 (>60 ml/min/1.73 sqM); Blood Urea Nitrogen 17 mg/dL (9-20); Non-African American GFR(CKD) >90 (>60 ml/min/1.73 sqM)
--- NOTE | 2024-06-18 11:38 | CT ---
EXAMINATION TYPE: CT chest w con CT DLP: 373.6 mGycm, Automated exposure control for dose reduction was used. 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 . Coronal and sagittal reformats reviewed. FINDINGS: LUNGS/ PLEURA: Postsurgical change from right upper lobectomy appears similar. No pleural effusion o r pneumothorax. There are 2 adjacent pulmonary nodules within the medial aspect of the right upper colton ng measuring 6 and 4 mm (series 4, image 16 and 17 respectively). Stable nodular opacity within the p osterior upper lung measuring up to 4 mm (series 4, image 11). AIRWAY: Patent and unremarkable.. HEART: Size within normal limits.No pericardial effusion. Scattered three-vessel coronary artery calc ifications are present. MEDIASTINUM: No evidence of adenopathy. Shifted to the right due to right upper lobectomy volume loss . VASCULATURE: No aortic aneurysm. Stable ectasia of the ascending thoracic aorta measuring up to 3.9 cm. MUSCULOSKELETAL: No acute osseous abnormalities. Levoconvex scoliosis of the thoracolumbar junction. Accentuated thoracic kyphosis. Chronic vertebral compression deformities especially at T5. Interbody ankylosis of the lower thoracic spine. No aggressive osseous lesion. Multilevel degenerative disc dis ease. SOFT TISSUES/LYMPH NODES: Bilateral gynecomastia. LOWER NECK: No significant findings. UPPER ABDOMEN: Small hiatal hernia. Stable right hepatic dome 2.9 cm cyst. IMPRESSION: Post surgical changes from right upper lobectomy with 2 new medial right upper lobe adjacent pulmonar y nodules measuring up to 6 mm. Raises possibility of recurrence/metastasis. Follow-up CT chest in 3 months is recommended. [facility], , 06/18/2024 11:35 AM
== END | disposition home or self-care (01) ==
LOC: RADCTMAIN 09:53
PROVIDERS: ATTEND Internal Medicine Hematology & Oncology
DX: C91.10 Chronic lymphocytic leukemia of B-cell type not having achieved remission (principal); C34.11 Malignant neoplasm of upper lobe, right bronchus or lung; Z71.3 Dietary counseling and surveillance; R91.8 Other nonspecific abnormal finding of lung field
CPT/HCPCS: 82565; 84520; 71260; Q9967

== ENCOUNTER → 2024-06-19 | Outpatient (CLI) | payer MEDICARE ==
[2024-06-19 09:00] VITALS: BP 116/67; PULSE 83; RESP 16
--- NOTE | 2024-06-19 15:03 | P.PAINPG ---
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 Pt states he experienced 80 % pain relief x 48 hrs s/p procedure. Pt states pain level is provoked at 5- 6 /10 in intensity, constant, localized in the lower lumbar spine, predominantly axial, throbbing in character w occasional shooting pain towards the L hip. Pain is provoked by over activity. Pain is alleviated by PT x 6 wks which ended in Mar 2024, physician guided home stretches daily since Mar 2024, heat, ice, medications, use of a cane for ambulatory assistance, repositioning and rest . Interventional procedures include BL MBB L3-L5 x1 Medications include Tyl Arth REVIEW OF ORGAN SYSTEMS: CONSTITUTIONAL: No fevers or chills. No recent weight loss. NEUROLOGICAL: + numbness and tingling along the distal extremities. No seizure disorders or headaches. MUSCULOSKELETAL: + pain PSYCHIATRIC: Denies current depression or suicidal thoughts. Physical Examinations : Constitutional : Cooperative , not in acute distress . Neurologic : Cranial nerve II to XII intact. No focal neurological deficits. Psychiatric : alert & oriented x 3. Matching mood & appropriate affect. Judgment & insight intact. Musculoskeletal : Cervical Spine Motor strength in the deltoid and biceps: Normal right side. Normal Left side Motor strength biceps and the wrist extensors: Normal right side . Normal left side Motor strength in the triceps muscle: Normal right side. Normal left side Deep tendon reflexes: Normal at the biceps. Normal at Brachioradialis. Normal at triceps Vertebral body tenderness to deep palpation over Cervical facet loading test: positive bilaterally Spurling test: positive bilaterally Neck distraction test: positive bilaterally Ari sign: positive bilaterally Lumbar spine Motor strength lower extremities ,thigh and legs 5/5 Right side , 5/5 Left side Deep tendon reflexes : Normal Knee Jerk. Normal Ankle Jerk Vertebral body tenderness over L5 Kessler Test positive L L5 Lumbar facet Loading Test: positive Right / positive Left L3-L4/ L4-L5 Range of motion of the lumbar spine Flexion 30 degrees, extension 10 degrees Straight Leg Raise test: Left/ Right positive at degrees Sirena test: positive right / positive left. Severe tenderness over the Sacroiliac joint on the Right / Left sides Gaenslen test: positive bilaterally Seated flexion test: positive bilaterally. Sacral spine : Severe tenderness over the Sacroiliac joint: right side / left side Range of motion: Flexion of the lumbar spine <60 degrees Range of motion: Extension of the lumbar spine <20 degrees Gaenslen's Test positive Sirena test: positive right side / left side Thigh Thrust Test Sacral Thrust Test Imaging: MRI non contrast lumbar spine from 05/03/24 reviewed Assessment/ Plan : Lumbar radiculopathy, R L2-L3/ L L3-L4/ BL L4-L5 neuroforaminal stenoses Recommendation of BL MBB L3-L4/ L4-L5 #2. Risks, benefits of procedure discussed and pt verbalized understanding. Protocol for discontinuation/ continuation of medications yanely procedure discussed. Minimal anesthesia including Fentanyl and Versed if clinically indicated. All questions answered. I have spent greater than 30 minutes on patient care today. Dr Jackson was available by phone for the evaluation of this patient. The time was used to review the medical records including relevant urine studies and Prescription his tory (MAPs), review of the available imaging, evaluation and examination of the patient, coordination of care with the medical staff and if applicable referring physicians, as well as creation of the medical record PQRS Narrative: Smoking Status Never smoker Narcotic Agreement Date Signed 05/13/24 Hx Alcohol Use (MH) No Home Medications: Ambulatory Orders Fluticasone Nasal [place] [Flonase Nasal [place]] 2 spray EA NOSTRIL DAILY PRN 01/24/23 Acetaminophen [Acetaminophen 8 hr] 650 mg PO Q8H PRN 01/03/24 L.acidoph,Paracasei, B.lactis [Probiotic] 1 cap PO DAILY 01/03/24 Atorvastatin [Lipitor] 10 mg PO DAILY 01/16/24 Losartan [Cozaar] 25 mg PO DAILY 02/08/24 Aspirin 81 mg PO DAILY tab 02/12/24 Tamsulosin [Flomax] 0.4 mg PO PC-SUPPER #30 cap 02/12/24 Omeprazole 40 mg PO HS 05/30/24 Probiotic Fiber Supplement 1 tbsp PO DAILY 05/30/24 Sodium Chloride Tab 1 gm PO Q48H 05/30/24 Unk Orgain Protein Drink 0.5 scoop PO DAILY 05/30/24 Controlled Substance Measures - Controlled Substance Measures Is patient prescribed a controlled substance at discharge?: No
== END ==
LOC: PNWHC3 08:29
PROVIDERS: ATTEND Specialist
DX: M48.061 Spinal stenosis, lumbar region without neurogenic claudication (principal); M54.16 Radiculopathy, lumbar region
CPT/HCPCS: 99211

== ENCOUNTER 2024-06-27 07:06 | Day surgery (SDC) | payer MEDICARE ==
[2024-06-26 12:21] VITALS: BMI 24.8
[2024-06-27 07:29] VITALS: TEMP 97.5
[2024-06-27] MEDS: LACTATED RINGERS 1,000 ML IV SCH (07:40)
[2024-06-27] MEDS: IV FLUID CONTINUATION 1,000 ML IV ONE ×2 (07:41→08:43)
[2024-06-27] MEDS ORDERED: ROPIVACAINE 5MG/ML 20ML VIAL ONE (08:24)
[2024-06-27] MEDS ORDERED: fentaNYL (PF) 50 MCG/ML 2 ML AMP ONE (08:24)
[2024-06-27] MEDS ORDERED: MIDAZOLAM 2 MG/2 ML VIAL ONE (08:24)
--- NOTE | 2024-06-27 08:36 | P.PCN ---
Date of Procedure: 06/27/24 Procedure(s) Performed: PREOPERATIVE DIAGNOSIS : 1- Lumbar spondylosis with Facet Arthropathy without myelopathy . 2- Lumber degenerative disc disease POSTOPERATIVE DIAGNOSIS: 1- Lumbar spondylosis with Facet Arthropathy without myelopathy . 2- Lumber degenerative disc disease PROCEDURE: Diagnostic bilateral L2 , L3 , L4 , medial branch block under fluoroscopy guidance(fluoroscopy images available in the radiology Department ) ( To target the facet joint between Bilateral L3-4 , L4-5 ) #2nd ANESTHESIA: moderate sedation with intravenous Versed 1 mg and Fentanyl 50 mcg.(Sedation start at 08:24, ende at 08:33 ) EBL: Minimal COMPLICATION: None PROCEDURE INDICATION: Chronic low back pain secondary to Facet arthropathy unresponsive to conservative treatment. PROCEDURE DESCRIPTION: the patient was seen and identified in the preop holding area , risks and benefits and possible complications of the procedure and alternative were discussed with the patient, and the patient agreed to proceed with the procedure and signed the consent and vital signs monitored during the procedure and fluoroscopy was used to maximize the benefit and accuracy of the needle placement, and sedation was given to decrease patient a nxiety, patient was taken to the procedure room and placed in prone position vital signs monitored in the back prepped with chlorhexidine X3 then under strict sterile technique using a right oblique fluoroscopy ,the junction of the transverse process and the superior articulating process of the right L2 , L3 , L4 vertebra which corresponding to the fluoroscopy image of the eye of the Mariano dog on the block side for the medial branches and subsequently , after local infiltration of skin and subcu tissuies with Ropivacaine 0.5 % , one mL at each level ,then 22-gauge Quincke-type needles , 3 needle was used , each one of them placed at the junction of the base of the transverse process and the superior articular process at the appropriate level, and the needle was advanced until the periosteum contacted, needle placement confirmed with AP oblique and lateral view and after appropriate needle placement confirmed, and after negative aspiration for heme and CSF and there was no paresthesia 1-1/2 mL of Ropivacaine 0.5% , then half mL injected at each level after negative aspiration the needle subsequently removed and the same procedure repeated for the left side at left side at L2, L3 , L4 levels. At the end of the procedure and the needles removed and a bandage applied after the skin was cleaned the cleaning solution patient taken to recovery room in stable condition and monitors in the recovery room for 20-30 minutes and discharged home in stable condition after discharge criteria met and patient will follow up with the pain clinic in 2-4 weeks
[2024-06-27 08:45] VITALS: RESP 16
[2024-06-27 08:59] VITALS: BP 122/75; PULSE 73
--- NOTE | 2024-06-27 09:35 | FL ---
EXAMINATION TYPE: FL guided pain mgmt statistic DATE OF EXAM: 06/27/2024 9:22 AM COMPARISON: Pre Operative Images if available both CT/MRI or plain film CLINICAL INDICATION: Male, 74 years old with history of FACET BLOCK; TECHNIQUE: FL guided pain mgmt statistic, multiple fluoroscopic images provided for procedure. Total fluoroscopy time: 17.7 seconds Total submitted images to PACS: 4 DAP: 0.09521 mGym2 Gycm2 uGym2 cGycm2 or equivalent. FINDINGS: Fluoroscopic images during injection for pain management demonstrate multilevel degeneration changes throughout the spine. No evidence for fracture. No acute process identified. IMPRESSION: 1. No evidence for intraoperative complication. 2. Please see the operative/procedural note for further details. [facility], , 06/27/2024 9:33 AM
== END 2024-06-27 09:15 | disposition home or self-care (01) ==
LOC: ORPAIN 07:06
PROVIDERS: ATTEND Specialist
DX: M47.816 Spondylosis without myelopathy or radiculopathy, lumbar region (principal); M51.369 Other intervertebral disc degeneration, lumbar region without mention of lumbar back pain or lower extremity pain; G89.29 Other chronic pain; Z79.899 Other long term (current) drug therapy; Z79.82 Long term (current) use of aspirin
CPT/HCPCS: 64493; 64494 ×2; 99152; J2250; J3010; J2795

== ENCOUNTER → 2024-07-02 | Outpatient (CLI) | payer MEDICARE ==
[2024-07-02 12:56] VITALS: BP 137/85; PULSE 68; RESP 16
--- NOTE | 2024-07-02 14:53 | P.PAINPG ---
PQRS Measure Charge Sheet Comment: Correction: MBB levels worked on on 06/04/24 were BL L3-L4 & L4-L5 where pt experienced 80% pain relief x 48 hrs s/p procedure. 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 Pt states he experienced 95 % pain relief x 24 hrs s/p procedure. Pt states pain level is provoked at 5- 6 /10 in intensity, constant, localized in the lower lumbar spine, predominantly axial, throbbing in character w occasional shooting pain towards the L hip. P ain is provoked by over activity. Pain is alleviated by PT x 6 wks which ended in Mar 2024, physician guided home stretches daily since Mar 2024, heat, ice, medications, use of a cane for ambulatory assistance, repositioning and rest . Interventional procedures include BL MBB L2-L2 x2 Medications include Tyl Arth REVIEW OF ORGAN SYSTEMS: CONSTITUTIONAL: No fevers or chills. No recent weight loss. NEUROLOGICAL: + numbness and tingling along the distal extremities. No seizure disorders or headaches. MUSCULOSKELETAL: + pain PSYCHIATRIC: Denies current depression or suicidal thoughts. Physical Examinations : Constitutional : Cooperative , not in acute distress . Neurologic : Cranial nerve II to XII intact. No focal ne urological deficits. Psychiatric : alert & oriented x 3. Matching mood & appropriate affect. Judgment & insight intact. Musculoskeletal : Cervical Spine Motor strength in the deltoid and biceps: Normal right side. Normal Left side Motor strength biceps and the wrist extensors: Normal right side . Normal left side Motor strength in the triceps muscle: Normal right side. Normal left side Deep tendon reflexes: Normal at the biceps. Normal at Brachioradialis. Normal at triceps Vertebral body tenderness to deep pa lpation over Cervical facet loading test: positive bilaterally Spurling test: positive bilaterally Neck distraction test: positive bilaterally Ari sign: positive bilaterally Lumbar spine Motor strength lower extremities ,thigh and legs 5/5 Right side , 5/5 Left side Deep tendon reflexes : Normal Knee Jerk. Normal Ankle Jerk Vertebral body tenderness over L5 Kessler Test positive L L5 Lumbar facet Loading Test: positive Right / positive Left L3-L4/ L4-L5 Range of motion of the lumbar spine Flexion 30 degrees, extension 10 degrees Straight Leg Raise test: Left/ Right positive at degrees Sirena test: positive right / positive left. Severe tenderness over the Sacroiliac joint on the Right / Left sides Gaenslen test: positive bilaterally Seated flexion test: positive bilaterally. Sacral spine : Severe tenderness over the Sacroiliac joint: right side / left side Range of motion: Flexion of the lumbar spine <60 degrees Range of motion: Extension of the lumbar spine <20 degrees Gaenslen's Test positive Sirena test: positive right side / left side Thigh Thrust Test Sacral Thrust Test Imaging: MRI non contrast lumbar spine from 05/03/24 reviewed Assessment/ Plan : Lumbar radiculopathy, R L2-L3/ L L3-L4/ BL L4-L5 neuroforaminal stenoses Recommendation of BL RFA L3-L4/ L4-L5. Risks, benefits of procedure discussed and pt verbalized understanding. Protocol for discontinuation/ continuation of medications yanely procedure discussed. Minimal anesthesia including Fentanyl and Versed if clinically indicated. All questions answered. I have spent greater than 30 minutes on patient care today. Dr Jackson was available by phone for the evaluation of this patient. The time was used to review the medical records including relevant urine studies and Prescription history (MAPs), review of the available imaging, evaluation and examination of the patient, coordination of care with the medical staff and if applicable referring physicians, as well as creation of the medical record PQRS Narrative: Smoking Status Never smoker Narcotic Agreement Date Signed 05/13/24 Hx Alcohol Use (MH) No Home Medications: Ambulatory Orders Fluticasone Nasal [place] [Flonase Nasal [place]] 2 spray EA NOSTRIL DAILY PRN 01/24/23 Acetaminophen [Acetaminophen 8 hr] 650 mg PO Q8H PRN 01/03/24 L.acidoph,Paracasei, B.lactis [Probiotic] 1 cap PO DAILY 01/03/24 Atorvastatin [Lipitor] 10 mg PO DAILY 01/16/24 Losartan [Cozaar] 25 mg PO DAILY 02/08/24 Aspirin 81 mg PO DAILY tab 02/12/24 Tamsulosin [Flomax] 0.4 mg PO PC-SUPPER #30 cap 02/12/24 Omeprazole 40 mg PO HS 05/30/24 Probiotic Fiber Supplement 1 tbsp PO DAILY 05/30/24 Sodium Chloride Tab 1 gm PO Q48H 05/30/24 Unk Orgain Protein Drink 0.5 scoop PO DAILY 05/30/24 Controlled Substance Measures - Controlled Substance Measures Is patient prescribed a controlled substance at discharge?: No
== END ==
LOC: PNWHC3 11:50
PROVIDERS: ATTEND Specialist
DX: M47.26 Other spondylosis with radiculopathy, lumbar region (principal); M48.061 Spinal stenosis, lumbar region without neurogenic claudication
CPT/HCPCS: 99211

== ENCOUNTER → 2024-11-08 | Outpatient (CLI) | payer MEDICARE ==
--- NOTE | 2024-11-08 17:22 | CT ---
EXAMINATION TYPE: CT urogram wo/w con DATE OF EXAM: 11/08/2024 4:57 PM COMPARISON: None. CLINICAL INDICATION: Male, 74 years old with history of R31.1 MICRO HEMATURIA, Micro hematuria., TECHNIQUE: CT Urography was performed with unenhanced followed by enhanced images of the kidneys, ure ters and urinary bladder. Delayed images were obtained. 3D reconstruction performed on a separate w orkstation. IV CONTRAST: with IV Contrast, patient injected with 100ml mL of Isovue 370. (None if empty) CT DLP: 2278.3 mGycm, Automated exposure control for dose reduction was used. FINDINGS: KIDNEYS/BLADDER: No hydronephrosis. Nonobstructing left-sided urolithiasis lower pole left kidney me asuring 1.7 x 1.2 cm. No additional renal calculi seen. No disctinct renal mass. Urinary bladder eze sly unremarkable. LUNG BASES-: No visible nodule. No infiltrate. LIVER/GB: No calcified gallstones. Stable cyst posterior segment right hepatic lobe. Biliary tree i s of normal caliber. PANCREAS: No inflammation. No distinct mass. SPLEEN: No splenic enlargement. No lesion seen. ADRENALS: No nodule. No thickening. BOWEL: Normal appendix. Normal bowel caliber. No inflammation. GENITAL ORGANS: No gross abnormality. LYMPH NODES: No greater than 1cm abdominal or pelvic lymph nodes are appreciated. AORTA: No significant abnormality. OSSEOUS STRUCTURES: Left hip prosthesis with the streak artifact. Severe degenerative change lumbar s pine with vacuum disc and loss of vertebral body height appears chronic in nature. OTHER: No significant additional abnormality is seen. IMPRESSION: 1. Nonobstructive left-sided nephrolithiasis. [facility], , 11/08/2024 5:19 PM
== END | disposition home or self-care (01) ==
LOC: RADCTMAIN 14:38
PROVIDERS: ATTEND Urology
DX: N20.0 Calculus of kidney (principal)
CPT/HCPCS: 74178; 36415; 74400; Q9967

== ENCOUNTER → 2024-11-08 | Outpatient (CLI) | payer MEDICARE ==
[2024-11-08 15:16] LABS: African American GFR (CKD) >90 (>60 ml/min/1.73 sqM); Blood Urea Nitrogen 16 mg/dL (9-20); Non-African American GFR(CKD) >90 (>60 ml/min/1.73 sqM)
--- NOTE | 2024-11-08 17:04 | CT ---
EXAMINATION TYPE: CT chest w con DATE OF EXAM: 11/08/2024 4:55 PM COMPARISON: 06/18/2024 CLINICAL INDICATION: Male, 74 years old with history of C34.11 LUNG CANCER, F/u for h/o lung CA, TECHNIQUE: CT scan of the chest is performed with IV Contrast, patient injected with 100ml mL of Isov ue 370. CT DLP: 406.1 mGycm, Automated exposure control for dose reduction was used. FINDINGS: LUNGS: Again noted are postoperative changes of right upper lobectomy. There is an enlarging right up per lobe nodule which has a bilobed appearance measuring 9.4 mm right upper lobe medially seen on melinda ge 17 versus 6.5 mm previously. Additional nodular density right upper lobe is also enlarged measurin g 7.7 mm versus 3 mm previously this is seen best on image 14 of 74. Stable right upper lobe pulmonar y nodular density measuring 4.6 mm image 12 versus 4.6 mm previously. MEDIASTINUM: There are no greater than 1 cm hilar or mediastinal lymph nodes. No pericardial effusi on is seen. Thoracic aorta is of normal caliber. HEART: Size within normal limits. No significant coronary artery calcifications. UPPER ABDOMEN: Hepatic cystic lesion posterior segment right hepatic lobe is unchanged. Left-sided ne phrolithiasis. Focal calcification anterior to the IVC is of uncertain etiology. OTHER: Severe degenerative disc space narrowing and spondylosis and ventral ankylosis. Possible vert ebral body height and severe degenerative disc disease. IMPRESSION: 1. Enlarging right upper lobe pulmonary nodule suspicious for tumor recurrence. Consider PET/CT. 2. Postoperative changes of partial right upper lobectomy. [facility], , 11/08/2024 5:02 PM
== END | disposition home or self-care (01) ==
LOC: RADCTMAIN 14:42
PROVIDERS: ATTEND Internal Medicine Hematology & Oncology
DX: C34.11 Malignant neoplasm of upper lobe, right bronchus or lung (principal); C91.10 Chronic lymphocytic leukemia of B-cell type not having achieved remission; R91.1 Solitary pulmonary nodule; Z71.3 Dietary counseling and surveillance; Z90.2 Acquired absence of lung [part of]
CPT/HCPCS: 71260; 82565; 84520

== ENCOUNTER 2024-11-12 07:29 | Day surgery (SDC) | payer MEDICARE ==
[2024-11-07 14:43] VITALS: BMI 26.7
[2024-11-12 07:58] VITALS: RESP 16; TEMP 97.5
[2024-11-12] MEDS: IV FLUID CONTINUATION 1,000 ML IV ONE ×2 (07:59→10:15)
[2024-11-12 08:07] LABS: Glucose,Whole Blood 105 mg/dL (70-110)
[2024-11-12] MEDS ORDERED: LACTATED RINGERS 1,000 ML IV SCH (08:07)
[2024-11-12] MEDS ORDERED: MIDAZOLAM 2 MG/2 ML VIAL ONE (09:21)
[2024-11-12] MEDS ORDERED: ROPIVACAINE 5 MG/ML 30 ML VIAL ONE (09:21)
[2024-11-12] MEDS ORDERED: fentaNYL (PF) 50 MCG/ML 2 ML AMP ONE (09:21)
--- NOTE | 2024-11-12 10:11 | P.PCN ---
Description of Procedure: Preprocedure diagnosis. 1. Lumbar spondylosis with facet joint arthropathy without myelopathy. 2. Lumbar degenerative disc disease. Procedure diagnosis. 1. Lumbar spondylosis with facet joint arthropathy without myelopathy. Space 2. Lumbar degenerative disc disease. Procedure.Bilateral radiofrequency thermocoagulation L3, L4 and L2 medial branch, with fluoroscopic guidance (fluoroscopy images are available in the radiology department) (to Denervate the facet joint at bilateral L4- 5 and L3-4 levels) Anesthesia. Moderate sedation with intravenous Versed 2 mg and fentanyl 100 g and local infiltration with Lidocaine. Continuous pulse OX,BP,EKG and verbal communication was maintained with patient. Time. Start 0921. Stop 1006. EBL minimal. Procedure indication. The patient with low back pain secondary to lumbar facet arthropathy who he had more than 50% relief of her pain with previous diagnostic lumbar medial branch block with local anesthetics.The patient was seen and identified in the preoperative area. Risks: Benefits, complications, including but not limited to risk of infection, bleeding, ALLERGIC reaction to the medications and no complete pain relief and alternatives were discussed with the patient, the patient admitted to proceed with the procedure and signed the consent. Procedure description/technique. Patient was taken to the OR and timeout was completed. The patient was placed in prone position on the procedure table. The lumbar area was prepped and draped in the usual sterile fashion. After injecting 5 ml of 1% Lidocaine subcutaneously,using AP and then oblique, lateral view of fluoroscopy, 18-gauge 100 mm radiofrequency cannula with a 10 mm active tip was advanced and guided by fluoroscopy at the junction of supirior articular process with RIGHT transverse process of L3,L4&L5. Each site then underwent positive sensory testing with 50 Hz and 0-1 V and negative motor testing at 2.5 Hz and 0-3 V with local stimulation but no radicular symptoms down the leg. Thereafter each sites underwent radiofrequency thermocoagulation at 80C for 90 seconds after injecting 1 mL of preservative-free 0.5% ropivacaine. Repeat radiofrequency ablation was done at each points after rotating the needle 180 with same setting. This same procedure was repeated twice on the LEFT side at the junction of superior articular process with transverse process of L3,L4, L5 with the same settings after positive sensory,negative motor stimulation and infiltration of 1.0 ml 5% Ropivacaine at each site . RF needles were taken out. At the end of the procedure the skin was cleansed and Band-Aids were applied. Disposition patient tolerated the procedure well. No complication. She was placed in supine position and transferred to the recovery area in stable condition for observation and was discharged home from recovery room after meeting discharge criteria. Discharge instructions given to the patient by the staff. The patient were examined prior to discharge the patient will schedule a follow-up in the clinic in 2-4 weeks.
--- NOTE | 2024-11-12 10:17 | FL ---
EXAMINATION TYPE: FL guided pain mgmt statistic DATE OF EXAM: 11/12/2024 FLUOROSCOPY pain services: Get Lumbar Rad Freq DAP: [phone] FL: 66.3 2 images are submitted. [facility], Workstation: [id number], 11/12/2024 10:15 AM
[2024-11-12 10:34] VITALS: BP 120/80; PULSE 67
== END 2024-11-12 10:50 | disposition home or self-care (01) ==
LOC: ORPAIN 07:29
PROVIDERS: ATTEND Pain Medicine Interventional Pain Medicine
DX: M47.816 Spondylosis without myelopathy or radiculopathy, lumbar region (principal); M51.369 Other intervertebral disc degeneration, lumbar region without mention of lumbar back pain or lower extremity pain
CPT/HCPCS: 64635; 64636; J2250; J3010; J2795

== ENCOUNTER → 2024-12-05 | Outpatient (CLI) | payer MEDICARE ==
[2024-12-05 08:58] VITALS: BP 122/85; PULSE 68; RESP 19; TEMP 97.9
--- NOTE | 2024-12-05 16:55 | P.PAINPG ---
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 Pt states he experienced 75 % pain relief s/p procedure. Pt states pain level is provoked at 3 /10 in intensity, constant, localized in the lower lumbar spine, predominantly axial, throbbing in character w occasional shooting pain towards the L hip. Pain is provoked by over activity. Pain is alleviated by PT x 6 wks which ended in Mar 2024, physician guided home stretches daily since Mar 2024, heat, ice, medications, use of a cane for ambulatory assistance, repositioning and rest . Interventional procedures include BL RFA L2-L4 (11/08) Medications include Tyl Arth REVIEW OF ORGAN SYSTEMS: CONSTITUTIONAL: No fevers or chills. No recent weight loss. NEUROLOGICAL: + numbness and tingling along the distal extremities. No seizure disorders or headaches. MUSCULOSKELETAL: + pain PSYCHIATRIC: Denies current depression or suicidal thoughts. Physical Examinations : Constitutional : Cooperative , not in acute distress . Neurologic : Cranial nerve II to XII intact. No focal neurological deficits. Psychiatric : alert & oriented x 3. Matching mood & appropriate affect. Judgment & insight intact. Musculoskeletal : Cervical Spine Motor strength in the deltoid and biceps: Normal right side. Normal Left side Motor strength biceps and the wrist extensors: Normal right side . Normal left side Motor strength in the triceps muscle: Normal right side. Normal left side Deep tendon reflexes: Normal at the biceps. Normal at Brachioradialis. Normal at triceps Vertebral body tenderness to deep palpation over Cervical facet loading test: positive bilaterally Spurling test: positive bilaterally Neck distraction test: positive bilaterally Ari sign: positive bilaterally Lumbar spine Motor strength lower extremities ,thigh and legs 5/5 Right side , 5/5 Left side Deep tendon reflexes : Normal Knee Jerk. Normal Ankle Jerk Vertebral body tenderness over L5 Kessler Test positive L L5 Lumbar facet Loading Test: positive Right / positive Left L3-L4/ L4-L5 Range of motion of the lumbar spine Flexion 30 degrees, extension 10 degrees Straight Leg Raise test: Left/ Right positive at degrees Sirena test: positive right / positive left. Severe tenderness over the Sacroiliac joint on the Right / Left sides Gaenslen test: positive bilaterally Seated flexion test: positive bilaterally. Sacral spine : Severe tenderness over the Sacroiliac joint: right side / left side Range of motion: Flexion of the lumbar spine <60 degrees Range of motion: Extension of the lumbar spine <20 degrees Gaenslen's Test positive Sirena test: positive right side / left side Thigh Thrust Test Sacral Thrust Test Imaging: MRI non contrast lumbar spine from 05/03/24 reviewed Assessment/ Plan : Lumbar radiculopathy, R L2-L3/ L L3-L4/ BL L4-L5 neuroforaminal stenoses Will manage residual pain and may RTC on an as needed basis . Zanaflex 4mg #90 w 1 RF. Use, side effects, adverse reactions, safe storage discussed. All questions answered. I have spent greater than 30 minutes on patient care today. Dr Jackson was available by phone for the evaluation of this patient. The time was used to review the medical records including relevant urine studies and Prescription history (MAPs), review of the available imaging, evaluation and examination of the patient, coordination of care with the medical staff and if applicable referring physicians, as well as creation of the medical record - Pain Location Lower Back Pharmacological Interventions: Block PQRS Narrative: Smoking Status Never smoker Narcotic Agreement Date Signed 05/13/24 Hx Alcohol Use (MH) No Home Medications: Ambulatory Orders Fluticasone Nasal [place] [Flonase Nasal [place]] 2 spray EA NOSTRIL DAILY PRN 01/24/23 Acetaminophen [Acetaminophen 8 hr] 650 mg PO Q8H PRN 01/03/24 L.acidoph,Paracasei, B.lactis [Probiotic] 1 cap PO DAILY 01/03/24 Atorvastatin [Lipitor] 10 mg PO QAM 01/16/24 Losartan [Cozaar] 25 mg PO QAM 02/08/24 Tamsulosin [Flomax] 0.4 mg PO PC-SUPPER #30 cap 02/12/24 Omeprazole 20 mg PO HS 05/30/24 Sodium Chloride Tab 1 gm PO Q48H 05/30/24 Unk Orgain Protein Drink 0.5 scoop PO DAILY 05/30/24 Ascorbic Acid [Vitamin C] 500 mg PO HS 11/07/24 Ascorbic Acid/Multivit-Min [Emergen-C 1,000 mg Packet] 1,000 mg PO QAM 11/07/24 Aspirin 81 mg PO QAM 11/07/24 Ferrous Sulfate [Feosol] 325 mg PO HS 11/07/24 tiZANidine [Zanaflex] 4 mg PO TID PRN 30 Days #90 tab 12/05/24 Controlled Substance Measures - Controlled Substance Measures Is patient prescribed a controlled substance at discharge?: No
== END ==
LOC: PNWHC3 08:40
PROVIDERS: ATTEND Specialist
DX: M47.26 Other spondylosis with radiculopathy, lumbar region (principal); M48.061 Spinal stenosis, lumbar region without neurogenic claudication; Z79.899 Other long term (current) drug therapy
CPT/HCPCS: 99211